=== PATIENT | male | born 1955 | race Caucasian/White ===

== ENCOUNTER 2018-05-16 07:40 | Day surgery (SDC) | payer BC ==
[2018-05-12 16:13] VITALS: BMI 24.7
[~2018-05-16 07:40] MED LIST: LACTATED RINGERS 1,000 ML IV SCH; LIDOCAINE 1% 20 ML VIAL (10MG/ML) FOR IV START INTRADERMA PRN
[2018-05-16 09:10] VITALS: TEMP 97.7
[2018-05-16] MEDS ORDERED: PROPOFOL 10 MG/ML 20 ML VIAL IV ONE (09:18)
[2018-05-16] MEDS ORDERED: LIDOCAINE 1% INJ 10MG/ML (20 ML MDV) ONE (09:18)
--- NOTE | 2018-05-16 09:25 | P.GSHP ---
History of Present Illness H&P Date: 05/16/18 Chief Complaint: GERD, dysphagia This 63-year-old male who presents today for EGD. Patient has had problems with GERD and dysphagia. Past Medical History Past Medical History: Blood Disorder, GERD/Reflux Additional Past Medical History / Comment(s): Dx idiopathic thrombocytopenia, no further problems since spleen removed, hx. Lyme disease,. Ulcerative colitis -surgery & has ileostomy, frequent burning in stomach, occasional dysphagia History of Any Multi-Drug Resistant Organisms: None Reported Past Surgical History: Bowel Resection, Orthopedic Surgery Additional Past Surgical History / Comment(s): BONE MARROW BX 12/12/13. Hx iliostomy age 27 for ulcerative colitis, Hx carpal tunnel release bilat., repair deviated nasal septum, LAPAROSCOPIC SPLENECTOMY Past Anesthesia/Blood Transfusion Reactions: No Reported Reaction Smoking Status: Never smoker - Past Family History Mother Family Medical History: Cancer Father Family Medical History: Cancer Medications and Allergies Home Medications Medication Instructions Recorded Confirmed Type Multivitamin [Men's Multi-Vitamin] 1 tab PO DAILY 12/28/13 05/16/18 History Licorice Root 1 tab PO DAILY 05/12/18 05/16/18 History Allergies Allergy/AdvReac Type Severity Reaction Status Date / Time No Known Allergies Allergy Verified 05/16/18 08:56 Surgical - Exam Vital Signs Temp Pulse Resp BP Pulse Ox 97.7 F 62 16 125/68 97 05/16/18 09:08 05/16/18 09:08 05/16/18 09:08 05/16/18 09:08 05/16/18 09:08 - General well developed, well nourished, no distress - Eyes PERRL - ENT normal pinna - Neck no masses - Respiratory normal expansion - Cardiovascular Rhythm: regular - Abdomen Abdomen: soft, non tender Assessment and Plan Assessment: GERD, dysphagia. We'll perform EGD.
--- NOTE | 2018-05-16 09:33 | P.OP ---
Date of Procedure: 05/16/18 Preoperative Diagnosis: GERD Dysphagia Postoperative Diagnosis: GERD Dysphagia Procedure(s) Performed: EGD Anesthesia: MAC Surgeon: Omega Green Pathology: other (Antrum, esophagus) Condition: stable Disposition: PACU Description of Procedure: The patient's placed on the endoscopy table in the lateral position. He received IV sedation. The gastroscope placed oropharynx and passed in the esophagus and into the stomach. Scope was then placed through the pylorus. The first and second portion of the duodenum appeared normal. Scope was then brought back the antrum and this appeared mildly inflamed. A biopsy was performed. The scope was then retroflexed and the remainder of the stomach appeared normal. There was a moderate size hiatal hernia. GE junction was at 38 sedation. The distal esophagus appeared mildly inflamed and a biopsy performed. The proximal esophagus appeared normal. Scope was withdrawn for patient.
[2018-05-16 09:50] VITALS: BP 129/75; PULSE 63; RESP 18
== END 2018-05-16 10:00 | disposition home or self-care (01) ==
LOC: ORWHC2ENDO 07:40
PROVIDERS: ATTEND Surgery
DX: K29.50 Unspecified chronic gastritis without bleeding (principal); I51.89 Other ill-defined heart diseases; K44.9 Diaphragmatic hernia without obstruction or gangrene; K21.9 Gastro-esophageal reflux disease without esophagitis; D69.3 Immune thrombocytopenic purpura; K51.90 Ulcerative colitis, unspecified, without complications; Z93.2 Ileostomy status; Z90.49 Acquired absence of other specified parts of digestive tract; Z90.81 Acquired absence of spleen
CPT/HCPCS: 88305; 43239; J2001; J2704

== ENCOUNTER → 2019-04-10 | Outpatient (CLI) | payer BC ==
--- NOTE | 2019-04-10 10:42 | CT ---
EXAMINATION TYPE: CT sinus wo con DATE OF EXAM: 04/10/2019 COMPARISON: Prior sinus CT July 13, 2012 HISTORY: Chronic sinusitis per order. Headaches with facial pain for [address] DLP: 587.50 mGycm. Automated Exposure Control for Dose Reduction was Utilized. TECHNIQUE: CT scan of the sinuses is performed without contrast, axial images are obtained, coronal r eformatted images are also reviewed. FINDINGS: Right maxillary sinus shows mild mucosal thickening medially with patchy fluid and air-flui d level on current study. They're slightly larger air-fluid level with mild mucosal thickening along all corona of the left maxillary sinus. Near complete opacification of left sphenoid sinus on current study. Right sphenoid sinus shows mild mucosal thickening along the periphery. There is [id number]-nurhbvyl mucosal thickening involving surgically treated ostiomeatal complexes bilat erally with more opacification in the anterior ethmoid sinuses noted. Frontal sinuses are clear bilat erally on current study. The surgically treated ostiomeatal complex is patent on the right. It is patent but narrowed on the l eft due to antral mucosal thickening coronal image 21. Nasal septum remains slightly deviated to left of midline anteriorly similar to prior. Visualized portion of mastoid air cells show no abnormal opacification. The globes are intact bilate rally. Visualized portion of brain parenchyma shows mild age-related cerebral atrophy. IMPRESSION: Recurrence Acute on chronic paranasal sinus disease despite prior surgery as detailed abo ve.
== END | disposition home or self-care (01) ==
LOC: RADCTMAIN 09:27
PROVIDERS: ATTEND Otolaryngology
DX: J32.9 Chronic sinusitis, unspecified (principal); Z98.890 Other specified postprocedural states
CPT/HCPCS: 70486

== ENCOUNTER → 2020-05-03 | Outpatient (CLI) | payer BC, MEDICARE ==
--- NOTE | 2020-05-03 11:20 | MR ---
EXAMINATION TYPE: MR brain and iac wo/w con DATE OF EXAM: 05/03/2020 COMPARISON: CT sinuses 04/10/2019 HISTORY: Hearing loss TECHNIQUE: Multiplanar, multisequence images of the brain and brainstem is performed without and with IV contras t, utilizing 7.5 mL intravenous Gadavist . FINDINGS: Diffusion weighted images demonstrate no evidence of a recent infarct or other diffusion ab normality. There is no extra-axial fluid collection or significant white matter signal abnormality. There is mild to moderate generalized degenerative change. Areas of abnormal signal involving the bas al ganglia most likely in the basis of prominent Virchow-Sunny spaces. There are numerous bilateral a reas of abnormal signal seen scattered throughout the white matter is a nonspecific pattern but most likely in the basis of remote white matter ischemia. Area of abnormal signal involving the left temporal lobe suggestive of remote ischemia. There are are as of abnormal signal involving the nadia also most typical remote ischemic change. Severe ethmoidal and mild maxillary chronic sinusitis. Mild mucosal thickening involving the frontal sinus. Orbits symmetric. Craniocervical junction maintained. Sella turcica has a normal appearance. There is no evidence of cerebellopontine angle mass or acoustic schwannoma. Just anterior to the left external auditory canal there is a well-circumscribed mixed signal nodule measuring 12 mm. May BE re lated to arthritic change involving the left TMJ joint. IMPRESSION: 1. No evidence of cerebellopontine angle mass or acoustic schwannoma. 2. Severe changes of sinusitis. 3. Degenerative and nonspecific white matter changes most typical of remote white matter ischemia. 4. 12 mm rounded area of mixed signal anterior to the left external auditory canal most likely is int raosseous and related to the mandibular condyle. Could be degenerative related TMJ dysfunction correl ate clinically.
== END | disposition home or self-care (01) ==
LOC: RADMRIMAIN 09:57
PROVIDERS: ATTEND Otolaryngology
DX: G31.9 Degenerative disease of nervous system, unspecified (principal); R90.89 Other abnormal findings on diagnostic imaging of central nervous system; R93.89 Abnormal findings on diagnostic imaging of other specified body structures; H92.03 Otalgia, bilateral; H93.13 Tinnitus, bilateral
CPT/HCPCS: 70553; A9585

== ENCOUNTER → 2020-07-26 | Outpatient (CLI) | payer BC, MEDICARE ==
[2020-07-26 17:05] LABS: Basophils # (A) 0.12 X 10*3/uL (0.00-0.10); Basophils % (A) 1.5 %; Eosinophils # (A) 0.61 X 10*3/uL (0.04-0.35); Eosinophils % (A) 7.7 %; HCT 46.8 % (39.6-50.0); HGB 14.9 g/dL (13.0-17.0); Lymphocytes # (A) 2.16 X 10*3/uL (0.90-5.00); Lymphocytes % (A) 27.4 %; MCH 30.5 pg (27.0-32.0); MCHC 31.8 g/dL (32.0-37.0); MCV 95.7 fL (80.0-97.0); Mean Platelet Volume 10.8 fL (9.5-12.2); Monocytes # (A) 0.85 X 10*3/uL (0.20-1.00); Monocytes % (A) 10.8 %; Neutrophils # (A) 4.08 X 10*3/uL (1.80-7.70); Neutrophils % (A) 51.8 %; Platelet Count 408 X 10*3/uL (140-440); RBC 4.89 X 10*6/uL (4.40-5.60); WBC 7.88 X 10*3/uL (4.50-10.00)
[2020-07-26 20:42] LABS: Hemoglobin A1C 5.8 % (4.0-6.0)
[2020-07-26 21:43] LABS: C Reactive Protein <0.4 mg/dL (0.0-0.8); Chol/HDL Ratio 4.74; Cholesterol 237 mg/dL (0-200); LDL Cholesterol,Calculated 169.6 mg/dL (0.0-131.0)
[2020-07-26 22:24] LABS: Erythrocyte Sedimentation Rate 8 mm/Hr (0-20)
[2020-07-27 02:59] LABS: Anti-DNA, DS unit <1.0 IU/mL; Cardiolipin Ab IgG Interp NEGATIVE (NEGATIVE); Cardiolipin Ab IgM Interp NEGATIVE (NEGATIVE); Cardiolipin IgA Antibody <2.0 U/mL; Cardiolipin IgM Antibody <1.5 U/mL; DNA Double-Stranded NEGATIVE (NEGATIVE)
[2020-07-29 13:45] LABS: APTT 45 Sec(s) (<43); APTT 1:1 Mix 41 Sec(s) (<43); Dilute Russell Viper Venom 40 Sec(s) (<44)
== END | disposition home or self-care (01) ==
LOC: LABWHC1 08:34
PROVIDERS: ATTEND Psychiatry & Neurology Neurology
DX: I67.9 Cerebrovascular disease, unspecified (principal); R93.89 Abnormal findings on diagnostic imaging of other specified body structures
CPT/HCPCS: 36415; 80061; 83036; 83090; 85025; 85613; 85652; 85730; 85732; 86038; 86140; 86147; 86225; 86618; 86780

== ENCOUNTER 2021-04-27 14:06 | Observation (INO) | payer BC, MEDICARE ==
--- NOTE | 2021-04-27 15:07 | ED ---
General Adult HPI - General Chief complaint: Shortness of Breath Stated complaint: SOB,chest pain Time Seen by Provider: 04/27/21 14:10 Source: patient, family, RN notes reviewed, old records reviewed Mode of arrival: wheelchair Limitations: no limitations - History of Present Illness Initial comments: This is a 66-year-old male who presents emergency Department complaining of overall fatigue and in particular upper legs and forearm weakness even though he is able to do things have normal strength in the chest feels extremely weak. Patient states he had COVID March 26. Patient states she's also been short of breath for the last 2 weeks. Patient states his fatigue and sensation of weakness in his extremities his been ongoing for the last couple of weeks per patient denies chest pain or difficulty breathing. Patient denies any chest pain or palpitations. Patient denies abdominal pain patient denies nausea vomiting diarrhea. Patient denies any swelling of the legs or calf tenderness - Related Data Home Medications Medication Instructions Recorded Confirmed Albuterol Sulfate [Proair Hfa] 2 puff INHALATION RT-Q4H PRN 04/27/21 04/27/21 Ascorbic Acid [Vitamin C] 1,000 mg PO DAILY 04/27/21 04/27/21 Cholecalciferol [Vitamin D3 (125 125 mcg PO DAILY 04/27/21 04/27/21 Mcg = 5000 Iu)] Cyanocobalamin (Vitamin B-12) 1,000 mcg PO DAILY 04/27/21 04/27/21 [Vitamin B-12] Vitamin A [Vitamin A (8,000 Units 2,400 mcg PO DAILY 04/27/21 04/27/21 = 2,400 MCG)] Zinc 50 mg PO DAILY 04/27/21 04/27/21 Allergies Allergy/AdvReac Type Severity Reaction Status Date / Time No Known Allergies Allergy Verified 04/27/21 17:14 Review of Systems ROS Statement: Those systems with pertinent positive or pertinent negative responses have been documented in the HPI. ROS Other: All systems not noted in ROS Statement are negative. Past Medical History Past Medical History: Blood Disorder, GERD/Reflux Additional Past Medical History / Comment(s): Dx idiopathic thrombocytopenia, no further problems since spleen removed, hx. Lyme disease,. Ulcerative colitis- surgery & has ileostomy, frequent burning in stomach, occasional dysphagia History of Any Multi-Drug Resistant Organisms: None Reported Past Surgical History: Bowel Resection, Orthopedic Surgery Additional Past Surgical History / Comment(s): BONE MARROW BX 12/12/13. Hx iliostomy age 27 for ulcerative colitis, Hx carpal tunnel release bilat., repair deviated nasal septum, LAPAROSCOPIC SPLENECTOMY Past Anesthesia/Blood Transfusion Reactions: No Reported Reaction Past Psychological History: No Psychological Hx Reported Smoking Status: Never smoker Past Alcohol Use History: Occasional Past Drug Use History: None Reported - Past Family History Mother Family Medical History: Cancer Father Family Medical History: Cancer General Exam - General Exam Comments Initial Comments: GENERAL: Patient is well-developed and well-nourished. Patient is nontoxic and well- hydrated and is in mild distress. ENT: Neck is soft and supple. No significant lymphadenopathy is noted. Oropharynx is clear. Moist mucous membranes. Neck has full range of motion without eliciting any pain. EYES: The sclera were anicteric and conjunctiva were pink and moist. Extraocular movements were intact and pupils were equal round and reactive to light. Eyelids were unremarkable. PULMONARY: Patient is crackles left base CARDIOVASCULAR: There is a regular rate and rhythm without any murmurs gallops or rubs. ABDOMEN: Soft and nontender with normal bowel sounds. SKIN: Skin is clear with no lesions or rashes and otherwise unremarkable. NEUROLOGIC: Patient is alert and oriented x3. Cranial nerves II through XII are grossly intact. Motor and sensory are also intact. Normal speech, volume and content. Symmetrical smile. MUSCULOSKELETAL: Normal extremities with adequate strength and full range of motion. LYMPHATICS: No significant lymphadenopathy is noted PSYCHIATRIC: Normal psychiatric evaluation. Limitations: no limitations Course Vital Signs 04/27/21 04/27/21 14:09 19:29 Temperature 97.6 F 98.2 F Pulse Rate 82 65 Respiratory 20 18 Rate Blood Pressure 128/76 117/64 O2 Sat by Pulse 95 92 L Oximetry Medical Decision Making - Medical Decision Making EKG shows normal sinus rhythm at 80 bpm ME interval is on a 28 QRS is 96 QT interval 390 QTC is 449. Patient's EKG shows no ST segment elevation or depression. Chest x-ray shows infiltrate in the left face. Patient's CT of the chest showed no PE there was some mediastinal lymph nodes. Patient was up and ambulatory and dropped his pulse ox from the high 90s down to 91%. I spoke Dr. Borrero admitted the patient I consult pulmonary. - Lab Data Result diagrams: 04/27/21 15:01 04/27/21 15:01 Lab Results 04/27/21 04/27/21 04/27/21 Range/Units 15:01 15:01 15:01 WBC 8.7 (3.8-10.6) k/uL RBC 4.49 (4.30-5.90) m/uL Hgb 14.2 (13.0-17.5) gm/dL Hct 43.3 (39.0-53.0) % MCV 96.4 (80.0-100.0) fL MCH 31.7 (25.0-35.0) pg MCHC 32.8 (31.0-37.0) g/dL RDW 13.9 (11.5-15.5) % Plt Count 366 (150-450) k/uL MPV 7.9 Neutrophils % 46 % Lymphocytes % 19 % Monocytes % 1 % Eosinophils % 31 % Basophils % 0 % Neutrophils # 4.0 (1.3-7.7) k/uL Lymphocytes # 1.7 (1.0-4.8) k/uL Monocytes # 0.1 (0-1.0) k/uL Eosinophils # 2.7 H (0-0.7) k/uL Basophils # 0.0 (0-0.2) k/uL Manual Slide Review Performed RBC Morphology Normal PT 11.0 (9.0-12.0) sec INR 1.0 (<1.2) APTT 24.9 (22.0-30.0) sec D-Dimer 1.44 H (<0.60) mg/L FEU Sodium 136 L (137-145) mmol/L Potassium 4.0 (3.5-5.1) mmol/L Chloride 107 (98-107) mmol/L Carbon Dioxide 22 (22-30) mmol/L Anion Gap 7 mmol/L BUN 16 (9-20) mg/dL Creatinine 1.01 (0.66-1.25) mg/dL Est GFR (CKD-EPI)AfAm 89 (>60 ml/min/1.73 sqM) Est GFR (CKD-EPI)NonAf 77 (>60 ml/min/1.73 sqM) Glucose 147 H (74-99) mg/dL Plasma Lactic Acid Tian (0.7-2.0) mmol/L Calcium 8.5 (8.4-10.2) mg/dL Magnesium 1.7 (1.6-2.3) mg/dL Total Bilirubin 0.3 (0.2-1.3) mg/dL AST 38 (17-59) U/L ALT 25 (4-49) U/L Alkaline Phosphatase 102 (38-126) U/L Creatine Kinase (55-170) U/L Troponin I (0.000-0.034) ng/mL NT-Pro-B Natriuret Pep pg/mL Total Protein 6.4 (6.3-8.2) g/dL Albumin 2.7 L (3.5-5.0) g/dL Coronavirus (PCR) (Not Detectd) 04/27/21 04/27/21 04/27/21 Range/Units 15:01 15:01 15:01 WBC (3.8-10.6) k/uL RBC (4.30-5.90) m/uL Hgb (13.0-17.5) gm/dL Hct (39.0-53.0) % MCV (80.0-100.0) fL MCH (25.0-35.0) pg MCHC (31.0-37.0) g/dL RDW (11.5-15.5) % Plt Count (150-450) k/uL MPV Neutrophils % % Lymphocytes % % Monocytes % % Eosinophils % % Basophils % % Neutrophils # (1.3-7.7) k/uL Lymphocytes # (1.0-4.8) k/uL Monocytes # (0-1.0) k/uL Eosinophils # (0-0.7) k/uL Basophils # (0-0.2) k/uL Manual Slide Review RBC Morphology PT (9.0-12.0) sec INR (<1.2) APTT (22.0-30.0) sec D-Dimer (<0.60) mg/L FEU Sodium (137-145) mmol/L Potassium (3.5-5.1) mmol/L Chloride (98-107) mmol/L Carbon Dioxide (22-30) mmol/L Anion Gap mmol/L BUN (9-20) mg/dL Creatinine (0.66-1.25) mg/dL Est GFR (CKD-EPI)AfAm (>60 ml/min/1.73 sqM) Est GFR (CKD-EPI)NonAf (>60 ml/min/1.73 sqM) Glucose (74-99) mg/dL Plasma Lactic Acid Tian 1.6 (0.7-2.0) mmol/L Calcium (8.4-10.2) mg/dL Magnesium (1.6-2.3) mg/dL Total Bilirubin (0.2-1.3) mg/dL AST (17-59) U/L ALT (4-49) U/L Alkaline Phosphatase (38-126) U/L Creatine Kinase (55-170) U/L Troponin I <0.012 (0.000-0.034) ng/mL NT-Pro-B Natriuret Pep 66 pg/mL Total Protein (6.3-8.2) g/dL Albumin (3.5-5.0) g/dL Coronavirus (PCR) (Not Detectd) 04/27/21 04/27/21 Range/Units 15:01 15:01 WBC (3.8-10.6) k/uL RBC (4.30-5.90) m/uL Hgb (13.0-17.5) gm/dL Hct (39.0-53.0) % MCV (80.0-100.0) fL MCH (25.0-35.0) pg MCHC (31.0-37.0) g/dL RDW (11.5-15.5) % Plt Count (150-450) k/uL MPV Neutrophils % % Lymphocytes % % Monocytes % % Eosinophils % % Basophils % % Neutrophils # (1.3-7.7) k/uL Lymphocytes # (1.0-4.8) k/uL Monocytes # (0-1.0) k/uL Eosinophils # (0-0.7) k/uL Basophils # (0-0.2) k/uL Manual Slide Review RBC Morphology PT (9.0-12.0) sec INR (<1.2) APTT (22.0-30.0) sec D-Dimer (<0.60) mg/L FEU Sodium (137-145) mmol/L Potassium (3.5-5.1) mmol/L Chloride (98-107) mmol/L Carbon Dioxide (22-30) mmol/L Anion Gap mmol/L BUN (9-20) mg/dL Creatinine (0.66-1.25) mg/dL Est GFR (CKD-EPI)AfAm (>60 ml/min/1.73 sqM) Est GFR (CKD-EPI)NonAf (>60 ml/min/1.73 sqM) Glucose (74-99) mg/dL Plasma Lactic Acid Tian (0.7-2.0) mmol/L Calcium (8.4-10.2) mg/dL Magnesium (1.6-2.3) mg/dL Total Bilirubin (0.2-1.3) mg/dL AST (17-59) U/L ALT (4-49) U/L Alkaline Phosphatase (38-126) U/L Creatine Kinase 160 (55-170) U/L Troponin I (0.000-0.034) ng/mL NT-Pro-B Natriuret Pep pg/mL Total Protein (6.3-8.2) g/dL Albumin (3.5-5.0) g/dL Coronavirus (PCR) Not Detected (Not Detectd) Disposition Clinical Impression: Dyspnea, Raynaud phenomenon, Fatigue, Post covid-19 condition, unspecified Disposition: ADMITTED IP TO THIS HOSP Referrals: Markie Verde DO [Primary Care Provider] - 1-2 days Time of Disposition: 19:35
[2021-04-27 15:16] LABS: Basophils % (A) 0 %; Eosinophils # (A) 2.7 k/uL (0-0.7); Eosinophils % (A) 31 %; HCT 43.3 % (39.0-53.0); HGB 14.2 gm/dL (13.0-17.5); Lymphocytes # (A) 1.7 k/uL (1.0-4.8); Lymphocytes % (A) 19 %; MCH 31.7 pg (25.0-35.0); MCHC 32.8 g/dL (31.0-37.0); MCV 96.4 fL (80.0-100.0); Mean Platelet Volume 7.9; Monocytes # (A) 0.1 k/uL (0-1.0); Monocytes % (A) 1 %; Neutrophils % (A) 46 %; Platelet Count 366 k/uL (150-450); RBC 4.49 m/uL (4.30-5.90); RDW 13.9 % (11.5-15.5); WBC 8.7 k/uL (3.8-10.6)
--- NOTE | 2021-04-27 15:24 | XR ---
EXAMINATION TYPE: XR chest 2V DATE OF EXAM: 04/27/2021 COMPARISON: NONE HISTORY: Short of breath and chest pain. TECHNIQUE: Frontal and lateral views of the chest are obtained. FINDINGS: Cardiomediastinal silhouette and pulmonary vasculature are within normal limits. Mild patchy and reticular opacity over the left base. IMPRESSION: Mild patchy opacity over the left base could represent pneumonia in the appropriate clin ical setting.
[2021-04-27 15:34] LABS: Partial Thromboplastin Time 24.9 sec (22.0-30.0)
[2021-04-27 15:36] LABS: Albumin 2.7 g/dL (3.5-5.0); Calcium 8.5 mg/dL (8.4-10.2); Magnesium 1.7 mg/dL (1.6-2.3); Total Bilirubin 0.3 mg/dL (0.2-1.3); Total Protein 6.4 g/dL (6.3-8.2)
[2021-04-27 16:16] LABS: RBC Morphology Normal
--- NOTE | 2021-04-27 17:26 | CT ---
EXAMINATION TYPE: CT chest angio for PE DATE OF EXAM: 04/27/2021 COMPARISON: Radiograph 04/27/2021 HISTORY: SOB, Hx Covid CT DLP: 385.3 mGycm Automated exposure control for dose reduction was used. CONTRAST: CT Chest for pulmonary embolism performed with with IV Contrast, patient injected with 100 mL of Isov ue 370. FINDINGS: LUNGS: There is peripheral reticular opacity in the lungs that demonstrates a craniocaudal gradient. There is diffuse bronchial wall thickening. There is a 6 mm pleural-based nodular opacity along the m inor fissure anteriorly. There is no effusion or pneumothorax MEDIASTINUM: There is satisfactory enhancement of the pulmonary artery and its branches, there is no CT evidence for pulmonary embolism. Enlarged mediastinal lymph nodes measuring up to 1.6 cm "and appr oximately 1.8 cm in. There are prominent but nonenlarged biaxillary lymph nodes. No pericardial effus ion is seen. The heart is not enlarged Caliber of the thoracic aorta and pulmonary arteries within no rmal limits. Wall thickening of the distal esophagus. Partial visualization prominent periaortic lymp h nodes. OTHER: No additional significant abnormality is seen. IMPRESSION: 1. No pulmonary embolism. 2. Peripherally predominant reticular glass opacities in the craniocaudal gradient as well as is di ffuse bronchial wall thickening. Numerous enlarged mediastinal and hilar lymph nodes and prominent bu t nonenlarged axillary lymph nodes as well as prominent upper abdominal lymph nodes. Findings are fav ored relate to an inflammatory/infectious process. 3. Wall thickening of the distal esophagus. Correlate with direct visualization.
[2021-04-27] MEDS ORDERED: SODIUM CHLORIDE 0.9% 1,000 ML IV ONE (19:36)
[2021-04-27] MEDS ORDERED: ALBUTEROL NEBULIZED 2.5 MG/3 ML INHALATION PRN (21:54)
[2021-04-27] MEDS ORDERED: ALPRAZolam 0.25 MG TAB PO PRN (21:55)
[2021-04-27] MEDS ORDERED: ONDANSETRON 4 MG/2 ML VIAL IVP PRN (21:55)
[2021-04-27] MEDS ORDERED: LACTULOSE 20 GM/30 ML CUP PO PRN (21:55)
[2021-04-27] MEDS ORDERED: CALCIUM CARBONATE 500 MG CHEWABLE PO PRN (21:55)
[2021-04-27] MEDS ORDERED: NALOXONE 0.4 MG/ML 1 ML VIAL IV PRN (21:55)
[2021-04-27] MEDS ORDERED: MELATONIN 3 MG TABLET PO PRN (21:55)
[2021-04-27] MEDS ORDERED: ACETAMINOPHEN TAB 325 MG TAB PO PRN (21:55)
[2021-04-27] MEDS: ENOXAPARIN 40 MG/0.4 ML SYRINGE SQ SCH (23:26)
[2021-04-28] MEDS: BUDESONIDE 0.5 MG/2 ML NEBU INHALATION SCH ×2 (02:17→08:24)
[2021-04-28] MEDS: CHOLECALCIFEROL 125 MCG (5000 IU) TABLET PO SCH (08:44)
[2021-04-28] MEDS: ASCORBIC ACID 500 MG TAB PO SCH (08:44)
[2021-04-28] MEDS: ENOXAPARIN 40 MG/0.4 ML SYRINGE SQ SCH (08:44)
[2021-04-28] MEDS: ZINC SULFATE 220 MG CAP PO SCH (08:44)
[2021-04-28] MEDS: VITAMIN A 10,000 UNIT (3000 MCG) CAPSULE PO SCH (08:44)
[2021-04-28] MEDS: CYANOCOBALAMIN 500 MCG TAB PO SCH (08:44)
--- NOTE | 2021-04-28 12:01 | NM ---
EXAMINATION TYPE: NM pul vent and perfuse DATE OF EXAM: 04/28/2021 COMPARISON: Radiograph 04/27/2021 HISTORY: 66-year-old male assess for peripheral PE TECHNIQUE: Utilizing inhalation of 39.2 mCi Tc 99m DTPA aerosol and intravenous injection of 4.8 mCi of Tc 99m MAA, ventilation and perfusion images are acquired post injection in multiple projections. FINDINGS: Possible small matched defect along the lateral right lower lung. Small mismatched defect suggested p osterior right base on the LPO image. No additional mismatched perfusion defects are identified. IMPRESSION: Low probability for pulmonary embolus based on modified PIOPED 2 criteria.
--- NOTE | 2021-04-28 16:39 | P.HPIM ---
History of Present Illness H&P Date: 04/28/21 Chief Complaint: Short of breath with exertion This is a very pleasant 66-year-old patient who follows with Dr. Markie Oscar. 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 Patient empties his ileostomy every 4-5 hours daily. This was done at age 27. Patient had COVID initially about a year ago in January. Was not hospitalized. In February 2021 patient was treated for pneumonia. In March of this year patient again had COVID was not hospitalized. Patient managed himself at home. His pulse ox never dropped below 90. Patient is at her baseline very active. 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 He is noted that with exertion he gets short of breath climbing flight of stairs. He was at the martial art competition in [place] a noticed that with any activity is legs arms became very weak. Short of breath. No chest pain. No fever no chills. Patient also having episodes and a repair fingers become white and blue when exposed to cold. No chest pain. No dizziness, lightheadedness. Patient does feel tired. Patient also has an active job at the [employer]. He does have significant stress. Review of systems: GEN.: Tires EYES: None HEENT: None NECK: None RESPIRATORY: As above CARDIOVASCULAR: As above GASTROINTESTINAL: None GENITOURINARY: None MUSCULOSKELETAL: Some joint pains LYMPHATICS: None HEMATOLOGICAL: None PSYCHIATRY: Anxious NEUROLOGICAL: None. Past medical history to include: GERD, hard of hearing, hyperlipidemia, ITP, Lyme disease, ulcerative colitis with total colectomy resultant ileostomy at age of 27, splenectomy. Social history: . 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 In [place]. Alcohol occasionally. Family history: Cancer Physical examination: VITAL SIGNS: 97.7, 90, 18, 115/73, 92% room air GENERAL: BMI 25.1, sitting in bed, awake, comfortable. EYES: Pupils equal. Conjunctiva normal. HEENT: External appearance of nose and ears normal, oral cavity grossly normal. NECK: JVD not raised; masses not palpable. HEART: First and second heart sounds are normal; no edema. LUNGS: Respiratory rate normal; clear to auscultation. ABDOMEN: Soft, nontender, liver spleen not palpable, no masses palpable. PSYCH: Alert and oriented x3; mood and affect normal. MUSCULOSKELETAL:No Clubbing/cyanosis;muscles-grossly intact. Some evidence of OA NEUROLOGICAL: Cranial nerves grossly intact; no facial asymmetry, power and sensation grossly intact. LYMPHATICS: No lymph nodes palpable in the axilla and neck INVESTIGATIONS, reviewed in the clinical context: White count 8.7 hemoglobin 14.2 platelets 366 eosinophils 2.7 sodium 136 potassium 4 creatinine 1.01 Albumin 2.7 pro-calcitonin 0.16 Coronavirus [PCR]: Not detected EKG tracing personally reviewed by me-normal sinus rhythm. Chest x-ray film personally reviewed by me-possible interstitial prominence/fibrosis CT chest angio for PE: Peripheral reticular opacities in a craniocaudal gradient. Diffuse bronchial wall thickening. Prominent lymph nodes. Distal esophagus wall thickening.. Negative for PE VQ scan: Low probability for PE. Assessment and plan: -This is a patient's had COVID 19 pneumonia over a year ago and a second episode in March of this year. Patient was never admitted. Since then patient currently is to have significant short of breath with exertion. Patient's significant findings on the CT chest. Could be residual fibrosis/inflammation from COVID 19. PE was ruled out. Inhaled steroids. Add bronchodilators. Patient will need full PFTs. In the presence eosinophilia consider pneumoniitis from such. Pulmonary's been consulted. -Shortness of breath from exertion. This could be related to his pulmonary findings. Given history of COVID-19 which can affect myocardium patient may need a nuclear stress test. Consult underlying cardiac ischemia. 2-D echocardiogram has been ordered.: Cardiology consultation. 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 Given the nature of COVID-19 this may have elicited low-grade arteritis/inflammation. We'll have the patient follow up with nutritionist public health an outpatient. Told the patient to use mittens to keep his hand warm. -Anxiety work-related. Patient advised about mindfulness. Nebulized steroids. Bronchodilators. 2-D echo. Consultation to pulmonary and cardiology. Patient will need full PFTs as outpatient, possible bronchoscopy. Care was discussed. Questions answered. Past Medical History Past Medical History: Blood Disorder, GERD/Reflux, Hearing Disorder / Deafness, Hyperlipidemia Additional Past Medical History / Comment(s): Dx idiopathic thrombocytopenia, no further problems since spleen removed, hx. Lyme disease,. Ulcerative colitis- surgery & has ileostomy, frequent burning in stomach, occasional dysphagia History of Any Multi-Drug Resistant Organisms: None Reported Past Surgical History: Bowel Resection, Orthopedic Surgery Additional Past Surgical History / Comment(s): BONE MARROW BX 12/12/13. Hx iliostomy age 27 for ulcerative colitis, Hx carpal tunnel release bilat., repair deviated nasal septum, LAPAROSCOPIC SPLENECTOMY; Nose surgery repair for broken nose Past Anesthesia/Blood Transfusion Reactions: No Reported Reaction Past Psychological History: No Psychological Hx Reported Smoking Status: Never smoker Past Alcohol Use History: Occasional Past Drug Use History: None Reported - Past Family History Mother Family Medical History: Cancer Father Family Medical History: Cancer Medications and Allergies Home Medications Medication Instructions Recorded Confirmed Type Albuterol Sulfate [Proair Hfa] 2 puff INHALATION RT-Q4H PRN 04/27/21 04/27/21 History Ascorbic Acid [Vitamin C] 1,000 mg PO DAILY 04/27/21 04/27/21 History Cholecalciferol [Vitamin D3 (125 125 mcg PO DAILY 04/27/21 04/27/21 History Mcg = 5000 Iu)] Cyanocobalamin (Vitamin B-12) 1,000 mcg PO DAILY 04/27/21 04/27/21 History [Vitamin B-12] Vitamin A [Vitamin A (8,000 Units 2,400 mcg PO DAILY 04/27/21 04/27/21 History = 2,400 MCG)] Zinc 50 mg PO DAILY 04/27/21 04/27/21 History Allergies Allergy/AdvReac Type Severity Reaction Status Date / Time No Known Allergies Allergy Verified 04/27/21 17:14 Physical Exam Vitals: Vital Signs Temp Pulse Pulse Resp BP BP Pulse Ox 04/28/21 08:40 97.7 F 90 18 115/73 92 L 04/28/21 08:39 92 04/28/21 08:24 88 04/28/21 02:00 98.9 F 70 15 123/70 97 04/28/21 00:02 78 18 04/27/21 21:55 96 04/27/21 21:46 97.8 F 78 18 106/57 96 04/27/21 20:58 79 20 117/67 98 04/27/21 19:29 98.2 F 65 18 117/64 92 L 04/27/21 14:09 97.6 F 82 20 128/76 95 Intake and Output 04/27/21 04/28/21 04/28/21 22:59 06:59 14:59 Other: Voiding Method Toilet # Voids 2 Weight 79.379 kg Results CBC & Chem 7: 04/27/21 15:01 04/27/21 15:01 Labs: Abnormal Lab Results - Last 24 Hours (Table) 04/27/21 04/27/21 04/27/21 Range/Units 15:01 15:01 15:01 Eosinophils # 2.7 H (0-0.7) k/uL D-Dimer 1.44 H (<0.60) mg/L FEU Sodium 136 L (137-145) mmol/L Glucose 147 H (74-99) mg/dL Albumin 2.7 L (3.5-5.0) g/dL Procalcitonin (0.02-0.09) ng/mL 04/27/21 Range/Units 15:01 Eosinophils # (0-0.7) k/uL D-Dimer (<0.60) mg/L FEU Sodium (137-145) mmol/L Glucose (74-99) mg/dL Albumin (3.5-5.0) g/dL Procalcitonin 0.16 H (0.02-0.09) ng/mL Thrombosis Risk Factor Assmnt - Choose All That Apply Any of the Below Risk Factors Present?: No Each Risk Factor Represents 2 Points: Age 61-74 years Thrombosis Risk Factor Assessment Total Risk Factor Score: 2 Thrombosis Risk Factor Assessment Level: Low Risk
[2021-04-28] MEDS: PANTOPRAZOLE 40 MG TABLET PO SCH (17:01)
[2021-04-28] MEDS: ALBUTEROL NEBULIZED 2.5 MG/3 ML INHALATION SCH ×2 (17:45→20:03)
--- NOTE | 2021-04-28 17:52 | P.CNPUL ---
History of Present Illness Consult date: 04/28/21 Requesting physician: Jesu Borrero Reason for consult: dyspnea Chief complaint: Shortness of breath History of present illness: This is a 66-year-old white male with known history of splenectomy, ITP, history of GERD, history of Lyme's disease, ulcerative colitis, and history of colectomy/ileostomy. Patient had COVID-19 infection twice in the last year, he had COVID-19 infection about a year ago in January, and he did not require hospitalization. Patient came down again in March of this year with COVID-19 infection again, did not require hospitalization. Patient managed his symptoms mostly at home. And he always had adequate oxygenation in the 90s during his illness. 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 But improving after running hot water over the fingers. Patient was also feeling very tired, he was a bit concerned, hence he came into the ER. Workup included a CT angiogram of the chest which came back negative except for peripheral reticular glass opacities and some bronchial wall thickening. Mild peripheral fibrotic changes noted on the CT of the chest. There was also evidence of slightly enlarged lymph nodes in the mediastinum, there was also wall thickening of the distal esophagus. Patient had relatively normal CBC. However he had a 31% eosinophilia noted on the differential. His pro-calcitonin was 0.16, otherwise his labs were basically unremarkable. On physical examination, the patient sounded very clear, no evidence of any crackles or rhonchi or wheezes. I am recommending however an ABG on this patient, results of which are pending. Review of Systems GEN.: Fatigue and tiredness weakness EYES: None HEENT: None NECK: None RESPIRATORY: As noted in HPI. CARDIOVASCULAR: Negative. GASTROINTESTINAL: None GENITOURINARY: None MUSCULOSKELETAL: Negative. Except for renal phenomenon involving both hands / fingers LYMPHATICS: None HEMATOLOGICAL: Negative PSYCHIATRY: Negative NEUROLOGICAL: None. Past Medical History Past Medical History: Blood Disorder, GERD/Reflux, Hearing Disorder / Deafness, Hyperlipidemia Additional Past Medical History / Comment(s): Dx idiopathic thrombocytopenia, no further problems since spleen removed, hx. Lyme disease,. Ulcerative colitis- surgery & has ileostomy, frequent burning in stomach, occasional dysphagia History of Any Multi-Drug Resistant Organisms: None Reported Past Surgical History: Bowel Resection, Orthopedic Surgery Additional Past Surgical History / Comment(s): BONE MARROW BX 12/12/13. Hx iliostomy age 27 for ulcerative colitis, Hx carpal tunnel release bilat., repair deviated nasal septum, LAPAROSCOPIC SPLENECTOMY; Nose surgery repair for broken nose Past Anesthesia/Blood Transfusion Reactions: No Reported Reaction Past Psychological History: No Psychological Hx Reported Smoking Status: Never smoker Past Alcohol Use History: Occasional Past Drug Use History: None Reported - Past Family History Mother Family Medical History: Cancer Father Family Medical History: Cancer Medications and Allergies Home Medications Medication Instructions Recorded Confirmed Type Albuterol Sulfate [Proair Hfa] 2 puff INHALATION RT-Q4H PRN 04/27/21 04/27/21 History Ascorbic Acid [Vitamin C] 1,000 mg PO DAILY 04/27/21 04/27/21 History Cholecalciferol [Vitamin D3 (125 125 mcg PO DAILY 04/27/21 04/27/21 History Mcg = 5000 Iu)] Cyanocobalamin (Vitamin B-12) 1,000 mcg PO DAILY 04/27/21 04/27/21 History [Vitamin B-12] Vitamin A [Vitamin A (8,000 Units 2,400 mcg PO DAILY 04/27/21 04/27/21 History = 2,400 MCG)] Zinc 50 mg PO DAILY 04/27/21 04/27/21 History Allergies Allergy/AdvReac Type Severity Reaction Status Date / Time No Known Allergies Allergy Verified 04/27/21 17:14 Physical Exam Vitals: Vital Signs Temp Pulse Pulse Resp BP BP Pulse Ox 04/28/21 14:00 97.9 F 86 18 106/63 94 L 04/28/21 08:40 97.7 F 90 18 115/73 92 L 04/28/21 08:39 92 04/28/21 08:24 88 04/28/21 02:00 98.9 F 70 15 123/70 97 04/28/21 00:02 78 18 04/27/21 21:55 96 04/27/21 21:46 97.8 F 78 18 106/57 96 04/27/21 20:58 79 20 117/67 98 04/27/21 19:29 98.2 F 65 18 117/64 92 L Intake and Output 04/28/21 04/28/21 04/28/21 06:59 14:59 22:59 Other: Voiding Method Toilet # Voids 2 Physical Exam revealed a 66-year-old white male in no distress. Head: Atraumatic, normocephalic. HEENT:[Neck is supple.] [No neck masses.] [No thyromegaly.] [No JVD.] Chest: [Clear throughout, no crackles, no rhonchi, no wheezes.] Cardiac Exam: [Normal S1 and S2, no S3 gallop, no murmur.] Abdomen: [Soft, nontender, no megaly, no rebound, no guarding, normal bowel sounds.] Extremities: [No clubbing, no edema, no cyanosis.] Neurological Exam: [No focal neurologic deficit.] Alert and oriented 3. Psychiatric: Normal mood, affect and normal mental status examination. Skin: No rashes. Results - Laboratory Findings CBC and BMP: 04/27/21 15:01 04/27/21 15:01 PT/INR, D-dimer PT 11.0 sec (9.0-12.0) 04/27/21 15:01 INR 1.0 (<1.2) 04/27/21 15:01 D-Dimer 1.44 mg/L FEU (<0.60) H 04/27/21 15:01 Abnormal lab findings: Abnormal Labs 04/27/21 04/27/21 04/27/21 15:01 15:01 15:01 Eosinophils # 2.7 H D-Dimer 1.44 H Sodium 136 L Glucose 147 H Albumin 2.7 L Procalcitonin 04/27/21 15:01 Eosinophils # D-Dimer Sodium Glucose Albumin Procalcitonin 0.16 H - Diagnostic Findings CT scan - chest: image reviewed (As noted in HPI.) Assessment and Plan Assessment: Impression: Dyspnea on exertion, most likely secondary to post inflammatory changes from COVID-19 pneumonia as noted on the CT of the chest, doubt interstitial lung disease. Mediastinal adenopathy/nonspecific, most likely postinflammatory in nature, I am strongly recommending a repeat CT of the chest in the next 3-4 months. And follow-up on his mediastinal lymph nodes. Elevated eosinophils, doubt eosinophilic asthma, as the patient has no clear-cut history of asthma to explain his elevated eosinophils. Wondering if the patient took some [id number] medications to cause a drug-induced eosinophilia. Nonetheless this needs to be followed up closely on outpatient basis. The differential diagnoses for elevated eosinophils could be ALLERGIES, especially drug ALLERGIES, parasitic infection, underlying malignancy, AUTO immune disease, or endocrine disorders. Would definitely recommend hematologic evaluation/oncologic evaluation of this patient. In the meantime we'll recommend serum AMMY, and sed rate as well as C-reactive protein. Recommendation: Continue present supportive care measures. Consider hematology consultation for his eosinophilia. Patient will need to follow-up with rheumatology regarding his raynauds symptoms. Repeat CT of the chest in the next 3 months. To evaluate his mediastinal adenopathy. Repeat CBC and check total eosinophilic count on this patient. In a.m. ABG to be done on room air We will continue to follow. Time with Patient: Greater than 30
[2021-04-28] MEDS: BUDESONIDE 1 MG/2 ML NEBU INHALATION SCH (20:03)
[2021-04-28 20:48] LABS: ABG Base Excess 0.2 mmol/L; ABG HCO3 25 mmol/L (21-25); ABG Oxygen Saturation 95.8 % (94-97); ABG PCO2 38 mmHg (35-45); ABG PH 7.43 (7.35-7.45); ABG PO2 73 mmHg (83-108); ABG TCO2 26 mmol/L (19-24); Allen Test Performed? Yes
[2021-04-29 01:57] VITALS: RESP 16
[2021-04-29] MEDS: PANTOPRAZOLE 40 MG TABLET PO SCH ×2 (07:45→17:01)
[2021-04-29] MEDS: BUDESONIDE 1 MG/2 ML NEBU INHALATION SCH ×2 (08:45→18:59)
[2021-04-29] MEDS: ALBUTEROL NEBULIZED 2.5 MG/3 ML INHALATION SCH ×4 (08:45→18:59)
[2021-04-29] MEDS: ZINC SULFATE 220 MG CAP PO SCH (09:05)
[2021-04-29 09:44] LABS: HCT 38.3 % (39.6-50.0); HGB 12.5 g/dL (13.0-17.0); MCH 30.5 pg (27.0-32.0); MCHC 32.6 g/dL (32.0-37.0); MCV 93.4 fL (80.0-97.0); Mean Platelet Volume 10.1 fL (9.5-12.2); NRBC Per 100 WBC 0 /100 WBCS (0.0-0.0); Platelet Count 366 X 10*3/uL (140-440); RDW 14.1 % (11.5-14.5); WBC 9.29 X 10*3/uL (4.50-10.00)
[2021-04-29] MEDS: CHOLECALCIFEROL 125 MCG (5000 IU) TABLET PO SCH (09:44)
[2021-04-29] MEDS: CYANOCOBALAMIN 500 MCG TAB PO SCH (09:44)
[2021-04-29] MEDS: VITAMIN A 10,000 UNIT (3000 MCG) CAPSULE PO SCH (09:45)
[2021-04-29] MEDS: ASCORBIC ACID 500 MG TAB PO SCH (09:45)
[2021-04-29] MEDS: ENOXAPARIN 40 MG/0.4 ML SYRINGE SQ SCH (09:47)
--- NOTE | 2021-04-29 09:52 | P.PN ---
Subjective Progress Note Date: 04/29/21 Principal diagnosis: Dyspnea on exertion This is a 66-year-old white male with known history of splenectomy, ITP, history of GERD, history of Lyme's disease, ulcerative colitis, and history of colectomy/ileostomy. Patient had COVID-19 infection twice in the last year, he had COVID-19 infection about a year ago in January, and he did not require hospitalization. Patient came down again in March of this year with COVID-19 infection again, did not require hospitalization. Patient managed his symptoms mostly at home. And he always had adequate oxygenation in the 90s during his illness. 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 But improving after running hot water over the fingers. Patient was also feeling very tired, he was a bit concerned, hence he came into the ER. Workup included a CT angiogram of the chest which came back negative except for peripheral reticular glass opacities and some bronchial wall thickening. Mild peripheral fibrotic changes noted on the CT of the chest. There was also evidence of slightly enlarged lymph nodes in the mediastinum, there was also wall thickening of the distal esophagus. Patient had relatively normal CBC. However he had a 31% eosinophilia noted on the differential. His pro-calcitonin was 0.16, otherwise his labs were basically unremarkable. On physical examination, the patient sounded very clear, no evidence of any crackles or rhonchi or wheezes. I am recommending however an ABG on this patient, results of which are pending. The patient is seen today 04/29/2021 in follow-up on the regular medical floor. He is up ambulating in his room. Awake and alert in no acute distress. He denies any worsening shortness of breath, cough or congestion. he's been mainta ining O2 saturation in the 90s on room air. Afebrile. Hemodynamically stable. Arterial blood gases from yesterday revealeda pO2 of 73, pCO2 38 and a pH of 7.43 on room air.C-reactive protein 1.8. AMMY screen was positive. COVID-19 screen negative. Pro-calcitonin 0.16.a VQ scan revealed low probability for pulmonary embolus.He is continued on Pulmicort inhalations, albuterol. Lovenox for DVT prophylaxis. Vitamin supplements. Objective - Vital Signs Vital signs: Vital Signs Temp 98.4 F 04/29/21 06:56 Pulse 82 04/29/21 06:56 Resp 16 04/29/21 01:24 BP 112/69 04/29/21 06:56 Pulse Ox 96 04/29/21 06:56 Intake & Output 04/28/21 04/29/21 04/29/21 18:59 06:59 18:59 Other: Voiding Method Toilet # Voids 2 - Exam GENERAL EXAM: Alert, active, very pleasant 66-year-old gentleman, on room air oxygen, comfortable in no apparent distress. HEAD: Normocephalic. EYES: Normal reaction of pupils, equal size. NOSE: Clear with pink turbinates. THROAT: No erythema or exudates. NECK: No masses, no JVD. CHEST: No chest wall deformity. LUNGS: Equal air entry with no crackles, wheeze, rhonchi or dullness. CVS: S1 and S2 normal with no audible murmur, regular rhythm. ABDOMEN: No hepatosplenomegaly, normal bowel sounds, no guarding or rigidity. SPINE: No scoliosis or deformity SKIN: No rashes CENTRAL NERVOUS SYSTEM: No focal deficits, tone is normal in all 4 extremities. EXTREMITIES: There is no peripheral edema. No clubbing, no cyanosis. Peripheral pulses are intact. - Labs CBC & Chem 7: 04/27/21 15:01 04/27/21 15:01 Labs: Abnormal Lab Results - Last 24 Hours (Table) 04/27/21 04/28/21 04/28/21 Range/Units 15:01 18:26 18:26 ABG pO2 (83-108) mmHg ABG Total CO2 (19-24) mmol/L C-Reactive Protein 1.8 H (<1.0) mg/dL Procalcitonin 0.16 H (0.02-0.09) ng/mL AMMY Screen POSITIVE A (NEGATIVE) 04/28/21 Range/Units 20:19 ABG pO2 73 L (83-108) mmHg ABG Total CO2 26 H (19-24) mmol/L C-Reactive Protein (<1.0) mg/dL Procalcitonin (0.02-0.09) ng/mL AMMY Screen (NEGATIVE) Assessment and Plan Assessment: 1 Dyspnea on exertion suspect secondary to postinflammatory changes from COVID- 19 pneumonia. Improved and on room air oxygen. Propulsid 0.16. VQ scan revea led low probability for PE. 2 Mediastinal adenopathy, most likely reactive due to his history of CoVID. Within the differential is also included sarcoidosis, lymphoma, cancer. 3 Eosinophilia of unclear etiology. Possibly related to his use of NSAIDs, possibly ALLERGIC, parasitic, malignancy. Less likely eosinophilic myalgia syndrome 4 Symptoms of Raynaud's phenomenon with elevated AMMY and possible connective tissue disorder, rheumatoid 5 History of splenectomy secondary to idiopathic thrombocytopenia 6 History of Lyme disease 7appearing disorder 8 Hyperlipidemia 9 History of ulcerative colitis with bowel resection and ileostomy 10Gastroesophageal reflux disease Plan: The patient was seen and evaluated by Dr. Go Cleared for discharge from the pulmonary standpoint Would recommend 3 month follow-up computed tomography scan of the chest If normal, most likely adenopathy was reactive If abnormal would recommend a PET scan and possible [id number] Recommend rheumatology consult for suspected connective-tissue disorder Oncology consult for eosinophilia Follow up with Dr. Go in the office in 1-2 weeks' I, the cosigning physician, performed a history & physical examination of the patient. Lungs sounds are clear. Maintaining good O2 saturations in the 90s on room air. I discussed the assessment and plan of care with my nurse practitioner, Luzma Hein. I attest to the above note as dictated by her.
--- NOTE | 2021-04-29 10:13 | P.CRDCN ---
History of Present Illness Consult date: 04/28/21 History of present illness: HISTORY OF PRESENT ILLNESS: This is a 66-year-old male with a past medical history significant for idiopathic thrombocytopenia, splenectomy, and ulcerative colitis with ileostomy. 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 We have been asked to see the patient in consultation for shortness of breath on exertion. Patient examined at the bedside. The patient reports having Covid in March 2021. The patient reports having shortness of breath over the past few weeks that has gotten gradually worse. He states he is normally very active so for him to get short of breath with activity is unusual. He denies any chest pain or pressure. He also reports feeling generalized weakness and states his arms and legs feel very heavy. He also reports having white fingertips lately which he has not had in the past. Denies any history of Raynauds. The patient is a lifelong nonsmoker. He reports a history of heart disease on his mothers side. EKG reveals sinus mechanism with no signs of acute ischemia. Chest xray mild patchy opacity over the left base could represent pneumonia in the appropriate clinical setting Chest CT: No pulmonary mows in. Peripherally predominant reticular glass opacities in the cranial caudal gradient as well as diffuse bronchial wall thickening. Numerous enlarged mediastinal and hilar lymph nodes and prominent but nonenlarged axillary lymph nodes as well as prominent upper abdominal lymph nodes. Findings are favored to relate to inflammatory/infectious process. Wall thickening of the distal esophagus. VQ scan: Low probability for PE Laboratory data: WBC 8.7. Hemoglobin 14.2. Platelet count 366. D-dimer 1.44. Sodium 136. Potassium 4.0. BUN 16. Creatinine 1.01. Troponin negative 1. ProBNP 66. Current home cardiac medications include none REVIEW OF SYSTEMS: At the time of my exam: CONSTITUTIONAL: Denies fever or chills. HEENT: Denies blurred vision, vision changes, or eye pain. Denies hemoptysis CARDIOVASCULAR: Denies chest pain. Denies orthopnea. Denies PND. Denies palpitations RESPIRATORY: + shortness of breath with exertion. GASTROINTESTINAL: Denies abdominal pain. Denies nausea or vomiting. HEMATOLOGIC: Denies bleeding disorders. GENITOURINARY: Denies any blood in urine. SKIN: Denies pruitis. Denies rash. PHYSICAL EXAM: VITAL SIGNS: Reviewed. GENERAL: Well-developed in no acute distress. HEENT: Head is normocephalic. Pupils are equal, round. Sclerae anicteric. Mucous membranes of the mouth are moist. Neck supple. No JVD or thyromegaly LUNGS: Respirations even and unlabored. Lungs essentially clear to auscultation bilaterally. HEART: Regular rate and rhythm. S1 and S2 heard. ABDOMEN: Soft. Nondistended. Nontender. EXTREMITIES: Normal range of motion. No clubbing or cyanosis. Peripheral pulses intact. No lower extremity edema NEUROLOGIC: Awake and alert. Oriented x 3. ASSESSMENT: Shortness of breath with exertion, r/o angina, r/o coronary artery disease, r/o covid related cardiomyopathy History of Covid, March 2021 Elevated D-Dimer, CTA and VQ scan negative for PE History of idiopathic thrombocytopenia History of splenectomy History of ulcerative colitis with ileostomy PLAN: An acute coronary event has been ruled out Continue current cardiac medications Obtain 2D echo to assess cardiac structure and function Obtain ETT today Further recommendations pending patient course Nurse practitioner note has been reviewed by physician. Signing provider agrees with the documented findings, assessment, and plan of care. Past Medical History Past Medical History: Blood Disorder, GERD/Reflux, Hearing Disorder / Deafness, Hyperlipidemia Additional Past Medical History / Comment(s): Dx idiopathic thrombocytopenia, no further problems since spleen removed, hx. Lyme disease,. Ulcerative colitis- surgery & has ileostomy, frequent burning in stomach, occasional dysphagia History of Any Multi-Drug Resistant Organisms: None Reported Past Surgical History: Bowel Resection, Orthopedic Surgery Additional Past Surgical History / Comment(s): BONE MARROW BX 12/12/13. Hx iliostomy age 27 for ulcerative colitis, Hx carpal tunnel release bilat., repair deviated nasal septum, LAPAROSCOPIC SPLENECTOMY; Nose surgery repair for broken nose Past Anesthesia/Blood Transfusion Reactions: No Reported Reaction Past Psychological History: No Psychological Hx Reported Smoking Status: Never smoker Past Alcohol Use History: Occasional Past Drug Use History: None Reported - Past Family History Mother Family Medical History: Cancer Father Family Medical History: Cancer Medications and Allergies Home Medications Medication Instructions Recorded Confirmed Type Albuterol Sulfate [Proair Hfa] 2 puff INHALATION RT-Q4H PRN 04/27/21 04/27/21 History Ascorbic Acid [Vitamin C] 1,000 mg PO DAILY 04/27/21 04/27/21 History Cholecalciferol [Vitamin D3 (125 125 mcg PO DAILY 04/27/21 04/27/21 History Mcg = 5000 Iu)] Cyanocobalamin (Vitamin B-12) 1,000 mcg PO DAILY 04/27/21 04/27/21 History [Vitamin B-12] Vitamin A [Vitamin A (8,000 Units 2,400 mcg PO DAILY 04/27/21 04/27/21 History = 2,400 MCG)] Zinc 50 mg PO DAILY 04/27/21 04/27/21 History Allergies Allergy/AdvReac Type Severity Reaction Status Date / Time No Known Allergies Allergy Verified 04/27/21 17:14 Physical Exam Vitals: Vital Signs Temp Pulse Pulse Resp BP BP Pulse Ox 04/28/21 08:40 97.7 F 90 18 115/73 92 L 04/28/21 08:39 92 04/28/21 08:24 88 04/28/21 02:00 98.9 F 70 15 123/70 97 04/28/21 00:02 78 18 04/27/21 21:55 96 04/27/21 21:46 97.8 F 78 18 106/57 96 04/27/21 20:58 79 20 117/67 98 04/27/21 19:29 98.2 F 65 18 117/64 92 L 04/27/21 14:09 97.6 F 82 20 128/76 95 Intake and Output 04/27/21 04/28/21 04/28/21 22:59 06:59 14:59 Other: Voiding Method Toilet # Voids 2 Weight 79.379 kg Results 04/29/21 04:37 04/27/21 15:01 Cardiac Enzymes 04/27/21 04/27/21 Range/Units 15:01 15:01 AST 38 (17-59) U/L Troponin I <0.012 (0.000-0.034) ng/mL Coagulation 04/27/21 Range/Units 15:01 PT 11.0 (9.0-12.0) sec APTT 24.9 (22.0-30.0) sec CBC 04/27/21 Range/Units 15:01 WBC 8.7 (3.8-10.6) k/uL RBC 4.49 (4.30-5.90) m/uL Hgb 14.2 (13.0-17.5) gm/dL Hct 43.3 (39.0-53.0) % Plt Count 366 (150-450) k/uL Comprehensive Metabolic Panel 04/27/21 Range/Units 15:01 Sodium 136 L (137-145) mmol/L Potassium 4.0 (3.5-5.1) mmol/L Chloride 107 (98-107) mmol/L Carbon Dioxide 22 (22-30) mmol/L BUN 16 (9-20) mg/dL Creatinine 1.01 (0.66-1.25) mg/dL Glucose 147 H (74-99) mg/dL Calcium 8.5 (8.4-10.2) mg/dL AST 38 (17-59) U/L ALT 25 (4-49) U/L Alkaline Phosphatase 102 (38-126) U/L Total Protein 6.4 (6.3-8.2) g/dL Albumin 2.7 L (3.5-5.0) g/dL Current Medications Generic Name Dose Route Start Last Admin Trade Name Prestonq PRN Reason Stop Dose Admin Acetaminophen 650 mg 04/27/21 21:55 Acetaminophen Tab 325 Mg Tab PO Q6HR PRN Mild Pain or Fever > 100.5 Albuterol Sulfate 2.5 mg 04/27/21 21:54 04/28/21 08:24 Albuterol Nebulized 2.5 Mg/3 Ml INHALATION 2.5 mg RT-Q4H PRN Administration Shortness Of Breath Alprazolam 0.25 mg 04/27/21 21:55 Alprazolam 0.25 Mg Tab PO Q6HR PRN Anxiety Ascorbic Acid 1,000 mg 04/28/21 09:00 04/28/21 08:44 Ascorbic Acid 500 Mg Tab PO 1,000 mg DAILY LEYDI Administration Budesonide 0.5 mg 04/27/21 20:00 04/28/21 08:24 Budesonide 0.5 Mg/2 Ml Nebu INHALATION 0.5 mg RT-BID LEYDI Administration Calcium Carbonate/Glycine 1,000 mg 04/27/21 21:55 Calcium Carbonate 500 Mg Chewable PO Q4HR PRN Dyspepsia Cholecalciferol 125 mcg 04/28/21 09:00 04/28/21 08:44 Cholecalciferol 125 Mcg (5000 Iu) Tablet PO 125 mcg DAILY LEYDI Administration Cyanocobalamin 1,000 mcg 04/28/21 09:00 04/28/21 08:44 Cyanocobalamin 500 Mcg Tab PO 1,000 mcg DAILY LEYDI Administration Enoxaparin Sodium 40 mg 04/27/21 22:00 04/28/21 08:44 Enoxaparin 40 Mg/0.4 Ml Syringe SQ 40 mg DAILY LEYDI Administration Sodium Chloride 1,000 mls @ 50 mls/hr 04/27/21 19:36 04/27/21 23:26 Saline 0.9% IV 04/28/21 15:35 50 mls/hr .Q20H ONE Administration Lactulose 20 gm 04/27/21 21:55 Lactulose 20 Gm/30 Ml Cup PO DAILY PRN Constipation Melatonin 3 mg 04/27/21 21:55 Melatonin 3 Mg Tablet PO HS PRN Insomnia Naloxone HCl 0.2 mg 04/27/21 21:55 Naloxone 0.4 Mg/Ml 1 Ml Vial IV Q2M PRN Opioid Reversal Ondansetron HCl 4 mg 04/27/21 21:55 Ondansetron 4 Mg/2 Ml Vial IVP Q8HR PRN Nausea And Vomiting Vitamin A 10,000 unit 04/28/21 09:00 04/28/21 08:44 Vitamin A 10,000 Unit (3000 Mcg) Capsule PO 10,000 unit DAILY LEYDI Administration Zinc Sulfate 220 mg 04/28/21 09:00 04/28/21 08:44 Zinc Sulfate 220 Mg Cap PO 220 mg DAILY LEYDI Administration Intake and Output 04/27/21 04/28/21 04/28/21 22:59 06:59 14:59 Other: Voiding Method Toilet # Voids 2 Weight 79.379 kg 04/27/21 15:01 04/27/21 15:01
--- NOTE | 2021-04-29 10:36 | ECHOF ---
Referral Reason:Short of breath MEASUREMENTS -------- HEIGHT: 177.8 cm WEIGHT: 79.4 kg BP: 123/70 RVIDd: 2.8 cm (< 3.3) IVSd: 1.5 cm (0.6 - 1.1) LVIDd: 4.0 cm (3.9 - 5.3) LVPWd: 1.4 cm (0.6 - 1.1) IVSs: 1.7 cm LVIDs: 2.7 cm LVPWs: 1.8 cm LAESV Index (A-L): 23.78 ml/m Ao Diam: 3.6 cm (2.0 - 3.7) AV Cusp: 1.9 cm (1.5 - 2.6) MV EXCURSION: 16.486 mm (> 18.000) MV EF SLOPE: 102 mm/s (70 - 150) EPSS: 0.3 cm MV E Bill: 0.64 m/s MV DecT: 188 ms MV A Bill: 0.50 m/s MV E/A Ratio: 1.28 AR PHT: 519 ms RAP: 5.00 mmHg RVSP: 20.19 mmHg FINDINGS -------- Sinus rhythm. This was a technically adequate study. The left ventricular size is normal. There is moderate concentric left ventricular hypertrophy. O verall left ventricular systolic function is normal with, an EF between 55 - 60 %. The diastolic fi lling pattern is normal for the age of the patient {E/E'}. The right ventricle is normal in size. Normal LA size by volume 22+/-6 ml/m2. The right atrial size is normal. Interatrial and interventricular septum intact. There is mild aortic valve sclerosis. There is mild aortic regurgitation. There is no evidence of aortic stenosis. The mitral valve leaflets are mild to moderately thickened. No mitral regurgitation. An echodens ity attached to the anterior ML. Mild tricuspid regurgitation present. There is no evidence of pulmonary hypertension. The right v entricular systolic pressure, as measured by Doppler, is 20.19mmHg. The aortic root size is normal. IVC Not well visulized. There is no pericardial effusion. CONCLUSIONS -------- 1. The left ventricular size is normal. 2. There is moderate concentric left ventricular hypertrophy. 3. Overall left ventricular systolic function is normal with, an EF between 55 - 60 %. 4. There is mild aortic valve sclerosis. 5. There is mild aortic regurgitation. 6. The mitral valve leaflets are mild to moderately thickened. 7. An echodensity attached to the anterior ML. 8. Mild tricuspid regurgitation present. TRACK CAR OPERATOR: Sharita Her RDCS
[2021-04-29 13:16] LABS: Basophils # (A) 0.02 X 10*3/uL (0.00-0.10); Basophils % (A) 0.2 %; Eosinophils # (A) 2.75 X 10*3/uL (0.04-0.35); Eosinophils % (A) 29.6 %; Immature Grans, Automated 1.5 %; Lymphocytes % (A) 19.4 %; Monocytes # (A) 0.19 X 10*3/uL (0.20-1.00); Neutrophils # (A) 4.39 X 10*3/uL (1.80-7.70); Neutrophils % (A) 47.3 %
[2021-04-29 14:47] VITALS: BP 111/64; PULSE 87; TEMP 98.2
--- NOTE | 2021-04-29 14:49 | EST ---
EXERCISE STRESS DATE OF STUDY: 04/29/2021 AGE: 66 SEX: M HT: 5'10" WT: 175 lbs. PROTOCOL: Vince STAGE: 3 DURATION OF EXERCISE: 8:05 HEART RATE REST: 89 BLOOD PRESSURE REST: 117/88 MAXIMUM HEART RATE ACHIEVED: 148 MAXIMUM BLOOD PRESSURE: 180/79 85% MPHR: 130 100% MPHR: 153 METS: 10.3 INDICATIONS: Vince CLINICAL INFORMATION: STRESS DATA: Heart rate 89, pressure is 117/88 mmHg. Baseline EKG showed sinus mechanism. The patient exercised on the treadmill according to Vince protocol for a total of 8 minutes and achieved 10.3 METS. Max heart rate was 148, which is about 97% of maximum predicted heart rate, with maximum blood pressure of 180/79 mmHg. Clinically the patient did not have any symptoms of chest pain or chest discomfort. The EKG did not show any significant ST or T-wave abnormalities concerning for ischemia. CONCLUSION: 1. Excellent exercise tolerance. 2. Normal EKG in response to exercise. 3. Essentially normal stress test for the patient. MMODL / IJN: [id number] /
--- NOTE | 2021-04-29 15:38 | P.CONS ---
History of Present Illness - Reason for Consult Consult date: 04/29/21 eosinophillia Requesting physician: Kal Go - Chief Complaint SOB - History of Present Illness Mr. Florez is a pleasant male pt known to Dr. Smith with Hx of ITP. He was a dmitted to [facility] 06/19/13 with c/o easy bruising, petechiae on his legs, nose bleeds and blood blisters in his mouth, progressive over 2 months, plt 5000. Seen by Dr. Lundberg, and felt to have ITP. He apparently had a good response to IVIg and steroids, with plt increasing to 82 by 06/28/13. Based on this response, a bone marrow was not deemed necessary. He was discharged on tapering prednisone, which he was unable to tolerate so, he tapered as he wanted and then stopped it. Plt 15 by 07/03/13. He then restarted Prednisone, and was adjusting the dose himself, based on how he felt. He was on 50 mg/day at his 1st OV, with plt of 45, he was unable to f/u with Dr Lundberg due to scheduling issues, and was thus referred to . ITP quickly returned once steroids stopped. He was refractory to rituxan, then to steroids on next attempt to dose. Pt opted for splenectomy and after a transition period he remained on observation, last seen 12/07/14. We are asked to see pt for eosinophilia, currently admitted for SOB. He states he had covid twice. His CTA showed no PE but LAD and bronchial thickening suggestive of infection, inflammatory process. Denies fever, rash, allergy /allergic reactions recently, 14 point ROS is otherwise negative. Review of Systems 10 point ROS is neg except at stated in HPI Past Medical History Past Medical History: Blood Disorder, GERD/Reflux, Hearing Disorder / Deafness, Hyperlipidemia Additional Past Medical History / Comment(s): Dx idiopathic thrombocytopenia, no further problems since spleen removed, hx. Lyme disease,. Ulcerative colitis-s urgery & has ileostomy, frequent burning in stomach, occasional dysphagia History of Any Multi-Drug Resistant Organisms: None Reported Past Surgical History: Bowel Resection, Orthopedic Surgery Additional Past Surgical History / Comment(s): BONE MARROW BX 12/12/13. Hx iliostomy age 27 for ulcerative colitis, Hx carpal tunnel release bilat., repair deviated nasal septum, LAPAROSCOPIC SPLENECTOMY; Nose surgery repair for broken nose Past Anesthesia/Blood Transfusion Reactions: No Reported Reaction Past Psychological History: No Psychological Hx Reported Smoking Status: Never smoker Past Alcohol Use History: Occasional Past Drug Use History: None Reported - Past Family History Mother Family Medical History: Cancer Father Family Medical History: Cancer Medications and Allergies Home Medications Medication Instructions Recorded Confirmed Type Albuterol Sulfate [Proair Hfa] 2 puff INHALATION RT-Q4H PRN 04/27/21 04/27/21 History Ascorbic Acid [Vitamin C] 1,000 mg PO DAILY 04/27/21 04/27/21 History Cholecalciferol [Vitamin D3 (125 125 mcg PO DAILY 04/27/21 04/27/21 History Mcg = 5000 Iu)] Cyanocobalamin (Vitamin B-12) 1,000 mcg PO DAILY 04/27/21 04/27/21 History [Vitamin B-12] Vitamin A [Vitamin A (8,000 Units 2,400 mcg PO DAILY 04/27/21 04/27/21 History = 2,400 MCG)] Zinc 50 mg PO DAILY 04/27/21 04/27/21 History Allergies Allergy/AdvReac Type Severity Reaction Status Date / Time No Known Allergies Allergy Verified 04/27/21 17:14 Physical Exam Vitals: Vital Signs Temp Pulse Pulse Resp BP Pulse Ox 04/29/21 06:56 98.4 F 82 112/69 96 04/29/21 01:24 98.5 F 91 16 128/60 94 L 04/28/21 20:35 92 04/28/21 20:19 90 04/28/21 19:47 98.0 F 90 15 114/73 95 04/28/21 19:45 16 04/28/21 17:54 88 04/28/21 17:45 88 04/28/21 14:00 97.9 F 86 18 106/63 94 L Intake and Output 04/28/21 04/29/21 04/29/21 22:59 06:59 14:59 Other: Voiding Method Toilet # Voids 2 - Constitutional General appearance: average body habitus, cooperative, no acute distress - EENT Eyes: anicteric sclerae, EOMI ENT: hearing grossly normal, normal oropharynx - Neck Neck: no lymphadenopathy - Respiratory Respiratory: bilateral: CTA - Cardiovascular Rhythm: regular Heart sounds: normal: S1, S2 Abnormal Heart Sounds: no systolic murmur, no diastolic murmur, no rub, no S3 Gallop, no S4 Gallop, no click, no other leg Peripheral Edema: bilateral: None - Gastrointestinal General gastrointestinal: normal bowel sounds, soft - Integumentary Integumentary: normal - Neurologic Neurologic: CNII-XII intact - Musculoskeletal Musculoskeletal: strength equal bilaterally - Psychiatric Psychiatric: A&O x's 3, appropriate affect, intact judgment & insight Results CBC & Chem 7: 04/29/21 04:37 04/27/21 15:01 Labs: Abnormal Lab Results - Last 24 Hours (Table) 04/27/21 04/28/21 04/28/21 Range/Units 15:01 18:26 18:26 ABG pO2 (83-108) mmHg ABG Total CO2 (19-24) mmol/L C-Reactive Protein 1.8 H (<1.0) mg/dL Procalcitonin 0.16 H (0.02-0.09) ng/mL AMMY Screen POSITIVE A (NEGATIVE) 04/28/21 Range/Units 20:19 ABG pO2 73 L (83-108) mmHg ABG Total CO2 26 H (19-24) mmol/L C-Reactive Protein (<1.0) mg/dL Procalcitonin (0.02-0.09) ng/mL AMMY Screen (NEGATIVE) Chest x-ray: report reviewed CT scan - chest: report reviewed Assessment and Plan (1) Eosinophilia Narrative/Plan: Normal WBC with elevated eosinophils. CBC otherwise normal Pt is s/p 2 infections with covid 19. 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 Elevated level could be related to this. IgE level ordered. F/U in 2-3 weeks to reevalute differential. If persistent more specific work up will be ordered. Dr. Smith explained labs and plan. If pt does have a primary pathologic marrow condition resulting in eosinophilia, with otherwise normal labs, it is managed with observation. All pt questions answered to his satisfaction. Current Visit: Yes Status: Acute Priority: High Code(s): D72.10 - EOSINOPHILIA, UNSPECIFIED SNOMED Code(s): 521182518 Plan: Doctor attests: I performed a history and physical examination of this patient, developed impression and plan of care, discussed with dictator. I agree with dictators note, documented as a scribe.
[2021-04-29 17:32] LABS: Erythrocyte Sedimentation Rate 9 mm/Hr (0-20)
--- NOTE | 2021-04-29 21:56 | P.DS ---
Providers Date of admission: 04/27/21 19:36 Expected date of discharge: 04/29/21 Attending physician: Jesu Borrero Consults: 04/27/21 19:36 Consult Physician Urgent Consulting Provider: Lenny Abad Consult Reason/Comments: Dyspnea Do you want consulting provider notified?: Yes 04/28/21 12:38 Consult Physician Routine Consulting Provider: Lj Gr Consult Reason/Comments: SOB with xertion Do you want consulting provider notified?: Yes 04/29/21 08:06 Consult Physician Routine Consulting Provider: Gilson Smith Consult Reason/Comments: eosinophilia Do you want consulting provider notified?: Yes [facility] [place] [facility] Course: Chief Complaint: Short of breath with exertion This is a very pleasant 66-year-old patient who follows with Dr. Markie Oscar. 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 Patient empties his ileostomy every 4-5 hours daily. This was done at age 27. Patient had COVID initially about a year ago in January. Was not hospitalized. In February 2021 patient was treated for pneumonia. In March of this year patient again had COVID was not hospitalized. Patient managed himself at home. His pulse ox never dropped below 90. Patient is at her baseline very active. 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 He is noted that with exertion he gets short of breath climbing flight of stairs. He was at the martial art competition in [place] a noticed that with any activity is legs arms became very weak. Short of breath. No chest pain. No fever no chills. Patient also having episodes and a repair fingers become white and blue when exposed to cold. No chest pain. No dizziness, lightheadedness. Patient does feel tired. Patient also has an active job at the [employer]. He does have significant stress. Patient stress test was negative. CT chest negative for PE. VQ scan negative for peripheral PE. 2-D echocardiogram unremarkable. CT chest showing evidence of chronic disease. Including peribronchial cuffing. Elevated a slow fill. Patient be discharged on Symbicort. Will follow up outpatient with pulmonary, rheumatology Dr. East for Mich's phenomena, and Dr. Smith feosinophilia. Otherwise patient is minimum respiratory symptoms. Discussed at length with the patient. Questions answered. Discussion and discharge planning more than 35 minutes Past medical history to include: GERD, hard of hearing, hyperlipidemia, ITP, Lyme disease, ulcerative colitis with total colectomy resultant ileostomy at age of 27, splenectomy. Social history: . 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 In [place]. Alcohol occasionally. Family history: Cancer Physical examination: VITAL SIGNS: 98.2, 87, 16, 11 1 x 64, 96% room air GENERAL: BMI 25.1, sitting in bed, awake, comfortable. EYES: Pupils equal. Conjunctiva normal. HEENT: External appearance of nose and ears normal, oral cavity grossly normal. NECK: JVD not raised; masses not palpable. HEART: First and second heart sounds are normal; no edema. LUNGS: Respiratory rate normal; clear to auscultation. ABDOMEN: Soft, nontender, liver spleen not palpable, no masses palpable. PSYCH: Alert and oriented x3; mood and affect normal. MUSCULOSKELETAL:No Clubbing/cyanosis;muscles-grossly intact. Some evidence of OA NEUROLOGICAL: Cranial nerves grossly intact; no facial asymmetry, power and sensation grossly intact. LYMPHATICS: No lymph nodes palpable in the axilla and neck INVESTIGATIONS, reviewed in the clinical context: April 29: White count 9.2 hemoglobin 12.5 increased eosinophils. Exercise stress test: Negative for ischemia ABG: PCO2 38 pO2 73 IgE 106. AMMY screen positive White count 8.7 hemoglobin 14.2 platelets 366 eosinophils 2.7 sodium 136 potassium 4 creatinine 1.01 Albumin 2.7 pro-calcitonin 0.16 Coronavirus [PCR]: Not detected EKG tracing personally reviewed by me-normal sinus rhythm. Chest x-ray film personally reviewed by me-possible interstitial prominence/f ibrosis CT chest angio for PE: Peripheral reticular opacities in a craniocaudal gradient. Diffuse bronchial wall thickening. Prominent lymph nodes. Distal esophagus wall thickening.. Negative for PE VQ scan: Low probability for PE. Assessment and plan: -Chronic lung changes likely from COVID-19. Patient follow-up with pulmonary's outpatient. Repeat CT chest. Will need full PFTs to get a baseline. -eosinohilia Further workup with outpatient -Exercise stress test-negative. 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 Given the nature of COVID-19 this may have elicited low-grade arteritis/inflammation. We'll have the patient follow up with director of business applications an outpatient. Told the patient to use mittens to keep his hand warm. -Anxiety work-related. Patient advised about mindfulness. Disposition: Home Plan - Discharge Summary Discharge Rx Participant: Yes New Discharge Prescriptions: New Omeprazole [PriLOSEC] 10 mg PO BID #60 cap Budesonide/Formoterol Fumarate [Symbicort 80-4.5 Mcg Inhaler] 1 puff INHALATION BID #10.2 gm Continue Vitamin A [Vitamin A (8,000 Units = 2,400 MCG)] 2,400 mcg PO DAILY Ascorbic Acid [Vitamin C] 1,000 mg PO DAILY Albuterol Sulfate [Proair Hfa] 2 puff INHALATION RT-Q4H PRN PRN Reason: Shortness Of Breath Zinc 50 mg PO DAILY Cholecalciferol [Vitamin D3 (125 Mcg = 5000 Iu)] 125 mcg PO DAILY Cyanocobalamin (Vitamin B-12) [Vitamin B-12] 1,000 mcg PO DAILY Discharge Medication List Albuterol Sulfate [Proair Hfa] 2 puff INHALATION RT-Q4H PRN 04/27/21 [History] Ascorbic Acid [Vitamin C] 1,000 mg PO DAILY 04/27/21 [History] Cholecalciferol [Vitamin D3 (125 Mcg = 5000 Iu)] 125 mcg PO DAILY 04/27/21 [History] Cyanocobalamin (Vitamin B-12) [Vitamin B-12] 1,000 mcg PO DAILY 04/27/21 [History] Vitamin A [Vitamin A (8,000 Units = 2,400 MCG)] 2,400 mcg PO DAILY 04/27/21 [History] Zinc 50 mg PO DAILY 04/27/21 [History] Budesonide/Formoterol Fumarate [Symbicort 80-4.5 Mcg Inhaler] 1 puff INHALATION BID #10.2 gm 04/29/21 [Rx] Omeprazole [PriLOSEC] 10 mg PO BID #60 cap 04/29/21 [Rx] Follow up Appointment(s)/Referral(s): Kal Go MD [STAFF PHYSICIAN] - 4 Weeks Gilson Smith MD [STAFF PHYSICIAN] - 06/10/21 1:30 pm (Appt is at the location behind [facility], [address]) Markie Verde DO [Primary Care Provider] - 1-2 days Kelly East MD [STAFF PHYSICIAN] - 1 Week ([facility]) Discharge Disposition: HOME SELF-CARE
[2021-04-30] MEDS ORDERED: ASPIRIN 81 MG PO SCH (09:00)
[2021-04-30 16:29] LABS: ANA Pattern Homogeneous
[2021-05-01 13:04] LABS: C-ANCA <1:20 Titer (<1:20)
== END 2021-04-29 17:47 | disposition home or self-care (01) ==
LOC: EC 14:06 → 4SSUR 19:36
PROVIDERS: ADMIT Hospitalist; ATTEND Hospitalist
DX: R06.02 Shortness of breath (principal); J98.4 Other disorders of lung; R53.1 Weakness; R53.83 Other fatigue; R59.0 Localized enlarged lymph nodes; R06.09 Other forms of dyspnea; R79.89 Other specified abnormal findings of blood chemistry; K21.9 Gastro-esophageal reflux disease without esophagitis; H91.90 Unspecified hearing loss, unspecified ear; E78.5 Hyperlipidemia, unspecified; K51.90 Ulcerative colitis, unspecified, without complications; D72.10 Eosinophilia, unspecified; R13.10 Dysphagia, unspecified; I73.00 Raynaud's syndrome without gangrene; I08.3 Combined rheumatic disorders of mitral, aortic and tricuspid valves; F41.9 Anxiety disorder, unspecified; Z56.3 Stressful work schedule; Z20.822 Contact with and (suspected) exposure to COVID-19; Z71.9 Counseling, unspecified; Z86.16 Personal history of COVID-19; Z87.01 Personal history of pneumonia (recurrent); Z86.19 Personal history of other infectious and parasitic diseases; Z86.2 Personal history of diseases of the blood and blood-forming organs and certain disorders involving the immune mechanism; Z53.29 Procedure and treatment not carried out because of patient's decision for other reasons; Z90.81 Acquired absence of spleen; Z90.49 Acquired absence of other specified parts of digestive tract; Z93.2 Ileostomy status; Z80.9 Family history of malignant neoplasm, unspecified; Z82.49 Family history of ischemic heart disease and other diseases of the circulatory system
CPT/HCPCS: 96372 ×2; 99285; 36415; 94640 ×2; 36600; 93005; 93017; 93306; 86255; 85379; 83880; 80053; 85652; 82550; 82805; 83605; 83735; 84484; 85025 ×2; 85610; 85730; 86140; 82785; 86038; 86039; 84145; 87635; 71046; 71275; 78582; G0378 ×3; A9503; A9540; J1650 ×2; Q9967

== ENCOUNTER → 2021-07-14 | Outpatient (CLI) | payer BC, MEDICARE ==
--- NOTE | 2021-07-14 15:29 | CT ---
EXAMINATION TYPE: CT chest wo con DATE OF EXAM: 07/14/2021 COMPARISON: 04/27/2021 HISTORY: R91.[address] DLP: 247.[address] of the chest was performed with lung and mediastinal window settings submitted. The la ck of contrast limits evaluation of the vascular, mediastinal and parenchymal structures including th e upper abdomen. LUNGS: Persistent subpleural fibrosis throughout both lung rendon greatest within the mid and lower l noel zones. No focal consolidation at this time. 5 mm pleural-based nodular density right upper lobe i mage 38 of 63 appears slightly smaller in size. No new nodules are seen. No evidence for pleural effu allie or volume loss. MEDIASTINUM/JONATHAN: Thoracic aorta is of normal caliber with limited evaluation given lack of contrast . The heart is not enlarged. No evidence for mediastinal mass. Comment hilar and mediastinal lymph nodes persist and appear to be unchanged. UPPER ABDOMEN: No significant abnormality is seen. OTHER: No significant other abnormality. IMPRESSION: 1. Stable features of subpleural fibrosis which could be postinflammatory in nature. Consider transb ronchial biopsy if felt to be indicated. Pleural-based pulmonary nodule right upper lobe persists alt debra slightly smaller in size.
== END | disposition home or self-care (01) ==
LOC: RADCTMAIN 09:01
PROVIDERS: ATTEND Internal Medicine Hematology & Oncology
DX: R91.1 Solitary pulmonary nodule (principal)
CPT/HCPCS: 71250

== ENCOUNTER 2022-03-17 02:24 | Inpatient (IN) | payer BC, MEDICARE ==
--- NOTE | 2022-03-17 03:03 | XR ---
EXAMINATION TYPE: XR chest 1V DATE OF EXAM: 03/17/2022 COMPARISON: 04/27/2021 HISTORY: Chest pain TECHNIQUE: FINDINGS: Heart is enlarged. There is mild pulmonary congestion. There is some blunting of the costop hrenic angles bilaterally. There are chest leads. There are no hilar masses. IMPRESSION: Mild congestive heart failure with pleural fluid. Abnormalities appear new compared to ol d exam.
[2022-03-17 03:05] LABS: Basophils # (A) 0.1 k/uL (0-0.2); Basophils % (A) 1 %; Eosinophils # (A) 0.6 k/uL (0-0.7); Eosinophils % (A) 4 %; HCT 34.8 % (39.0-53.0); HGB 11.5 gm/dL (13.0-17.5); Lymphocytes # (A) 1.3 k/uL (1.0-4.8); Lymphocytes % (A) 10 %; MCH 30.8 pg (25.0-35.0); MCHC 33.1 g/dL (31.0-37.0); MCV 92.9 fL (80.0-100.0); Mean Platelet Volume 8.5; Monocytes # (A) 0.4 k/uL (0-1.0); Monocytes % (A) 3 %; Neutrophils # (A) 10.6 k/uL (1.3-7.7); Neutrophils % (A) 81 %; Platelet Count 612 k/uL (150-450); RBC 3.75 m/uL (4.30-5.90); RDW 14.5 % (11.5-15.5)
[2022-03-17 03:17] LABS: Albumin 3.3 g/dL (3.5-5.0); Calcium 8.9 mg/dL (8.4-10.2); Magnesium 1.6 mg/dL (1.6-2.3); Potassium 4.7 mmol/L (3.5-5.1); Total Bilirubin 1.2 mg/dL (0.2-1.3); Total Protein 7.5 g/dL (6.3-8.2)
[2022-03-17] MEDS ORDERED: ASPIRIN 325 MG TAB PO ONE (03:20)
[2022-03-17] MEDS ORDERED: NALOXONE 0.4 MG/ML 1 ML VIAL IV PRN (03:21)
[2022-03-17] MEDS ORDERED: ASPIRIN 325 MG TAB ONE (03:24)
[2022-03-17] MEDS ORDERED: IV FLUID CONTINUATION 1,000 ML IV ONE (03:25)
[2022-03-17] MEDS ORDERED: IOPAMIDOL-370 125ML BTL INJ ONE (03:30)
[2022-03-17] MEDS ORDERED: LIDOCAINE 1% INJ 10MG/ML (30 ML VIAL-PF) SQ ONE (03:30)
[2022-03-17] MEDS ORDERED: fentaNYL (PF) 50 MCG/ML 2 ML AMP ONE (03:31)
[2022-03-17] MEDS ORDERED: MIDAZOLAM 2 MG/2 ML VIAL IV ONE (03:32)
[2022-03-17] MEDS ORDERED: fentaNYL (PF) 50 MCG/ML 2 ML AMP IV ONE (03:32)
--- NOTE | 2022-03-17 03:37 | ED ---
General Adult HPI - General Chief complaint: Chest Pain Stated complaint: Chest Pain,SOB Time Seen by Provider: 03/17/22 02:31 Source: patient Mode of arrival: wheelchair Limitations: no limitations - History of Present Illness Initial comments: This is a 66 year old male with a significant past medical history including previous toxoplasmosis and thrombocytosis presents emergency department for chest pain. The patient stated that he had left-sided crushing chest pain that has been present over the last several days however stated that overnight this chest pressure became worse with shortness of breath became to the emergency department. The patient denied any radiation of the chest pain and denied any nausea, vomiting as well as any diaphoresis. The patient did state that he had shortness of breath and pain with deep breathing. The patient denied any other acute pain or complaints at this time. The patient was resting in bed comfortably with mild distress noted. - Related Data Home Medications Medication Instructions Recorded Confirmed Albuterol Sulfate [Proair Hfa] 2 puff INHALATION RT-Q4H PRN 04/27/21 04/27/21 Ascorbic Acid [Vitamin C] 1,000 mg PO DAILY 04/27/21 04/27/21 Cholecalciferol [Vitamin D3 (125 125 mcg PO DAILY 04/27/21 04/27/21 Mcg = 5000 Iu)] Cyanocobalamin (Vitamin B-12) 1,000 mcg PO DAILY 04/27/21 04/27/21 [Vitamin B-12] Vitamin A [Vitamin A (8,000 Units 2,400 mcg PO DAILY 04/27/21 04/27/21 = 2,400 MCG)] Zinc 50 mg PO DAILY 04/27/21 04/27/21 Previous Rx's Medication Instructions Recorded Budesonide/Formoterol Fumarate 1 puff INHALATION BID #10.2 gm 04/29/21 [Symbicort 80-4.5 Mcg Inhaler] Omeprazole [PriLOSEC] 10 mg PO BID #60 cap 04/29/21 Allergies Allergy/AdvReac Type Severity Reaction Status Date / Time No Known Allergies Allergy Verified 03/17/22 02:28 Review of Systems ROS Statement: Those systems with pertinent positive or pertinent negative responses have been documented in the HPI. ROS Other: All systems not noted in ROS Statement are negative. Past Medical History Past Medical History: Blood Disorder, GERD/Reflux, Hearing Disorder / Deafness, Hyperlipidemia, Rheumatoid Arthritis (RA) Additional Past Medical History / Comment(s): Dx idiopathic thrombocytopenia, no further problems since spleen removed, hx. Lyme disease,. Ulcerative colitis- surgery & has ileostomy, frequent burning in stomach, occasional dysphagia History of Any Multi-Drug Resistant Organisms: None Reported Past Surgical History: Bowel Resection, Orthopedic Surgery Additional Past Surgical History / Comment(s): BONE MARROW BX 12/12/13. Hx iliostomy age 27 for ulcerative colitis, Hx carpal tunnel release bilat., repair deviated nasal septum, LAPAROSCOPIC SPLENECTOMY; Nose surgery repair for broken nose Past Anesthesia/Blood Transfusion Reactions: No Reported Reaction Past Psychological History: No Psychological Hx Reported Smoking Status: Never smoker Past Alcohol Use History: Occasional Past Drug Use History: None Reported - Past Family History Mother Family Medical History: Cancer Father Family Medical History: Cancer General Exam Limitations: no limitations General appearance: alert, in no apparent distress Head exam: Present: atraumatic, normocephalic, normal inspection Eye exam: Present: normal appearance, PERRL Pupils: Present: normal accommodation ENT exam: Present: normal exam, normal oropharynx, mucous membranes moist Neck exam: Present: normal inspection, full ROM Respiratory exam: Present: normal lung sounds bilaterally Cardiovascular Exam: Present: regular rate, normal rhythm, normal heart sounds GI/Abdominal exam: Present: soft, normal bowel sounds Extremities exam: Present: normal inspection, full ROM Back exam: Present: normal inspection, full ROM Neurological exam: Present: alert, oriented X3, CN II-XII intact Psychiatric exam: Present: normal affect, normal mood Skin exam: Present: warm, dry Course Vital Signs 03/17/22 03/17/22 03/17/22 02:26 02:49 03:02 Temperature 97.9 F Pulse Rate 100 102 H 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 EKG showed a rate of 109, ND interval 141, QR duration of 88 and QTC of 380. This EKG showed a sinus tachycardia however did have ST segment elevations in lead 2, 3 and aVF consistent with an inferior STEMI. STEMI was paged out at 0241. Medical Decision Making - Medical Decision Making Was pt. sent in by a medical professional or institution? @ -No Did you speak to anyone other than the patient for history? @ -No Did you review nursing and triage notes? @ -Nursing triage notes were obtained and reviewed Were old charts reviewed? @ -No Differential Diagnosis? @ -STEMI, NSTEMI, acute chest wall pain,PE, pneumothorax EKG interpreted by me (3pts min.)? @ -As above X-rays interpreted by me (1pt min.)? @ -[none] CT interpreted by me (1pt min.)? @ -[none] U/S interpreted by me (1pt. min.)? @ -[none] What testing was considered but not performed? (CT, X-rays, U/S, labs)? Why? @Chest x-ray was considered and ordered however the patient was sent to the cardiac catheterization lab prior to completion of workup What meds were considered but not given? Why? @ -Brilenta, Plavix and heparin were considered however the chucking machine set up operator did not contact the emergency department or myself and therefore the patient was sent to the cardiac catheterization lab before medications could be given. Did you discuss the management of the patient with other professionals? @ -Yes, manager dental on-call, Dr. Gr Did you reconcile home meds? @ -[none] Was smoking cessation discussed for >3mins.? @ -[none] Was critical care preformed (if so, how long)? @ -[none] Were there social determinants of health that impacted care today? How? (Homelessness, low income, unemployed, alcoholism, drug addiction, transportation, low edu. Level, literacy, decrease access to med. care, skilled nursing, rehab)? @ -None Was there de-escalation of care discussed even if they declined? (Discuss DNR or withdrawal of care, Hospice)? @ -No What co-morbidities impacted this encounter? (DM, HTN, Smoking, COPD, CAD, Cancer, CVA, Hep., AIDS, mental health diagnosis, sleep apnea, morbid obesity)? @ -Toxoplasmosis, thrombocytosis Was patient admitted / discharged? @ -The patient was seen and evaluated in the emergency department. On physical exam, the patient was resting in bed with mild distress secondary chest pain. A EKG was performed initially on evaluation and did show signs of STEMI. Due to this, a STEMI was called at 0241. I spoke with the manager dental on-call, Dr. Gr at 0244. He did state to call Dr. Gonzalez as this was the chucking machine set up operator. Multiple times were made to call Dr. Gonzalez however he was unable to be reached. Because of the delay in contacting, it was recommended by Dr. Gr, the cardiac Shirt Closer and the nursing supervisor pile driving to send the patient to the cardiac catheterization lab while awaiting contacts. In the interest of the patient's outcome, I did allow this however I did not speak to Dr. Gonzalez re garding recommendations for medications prior to the catheterization. It was determined that Dr. Gr did contact Dr. Gonzalez but we did not learn this until after the patient was in the cardiac catheterization lab. The patient's primary care physician was being covered by [facility] and Anshu Serra was contacted at [phone] and accepted the patient for admission. The patient as well as his daughter were told of this plan and were agreeable. All other questions were answered and the patient was taken to the cardiac catheterization lab in stable condition. Undiagnosed new problem with uncertain prognosis? @ -[none] Drug Therapy requiring intensive monitoring for toxicity (Heparin, Nitro, Insulin, Cardizem)? @ -[none] Were any procedures done? @ -[none] Diagnosis/symptom? @ -Acute STEMI Acute, or Chronic, or Acute on Chronic? @ -Acute Uncomplicated (without systemic symptoms) or Complicated (systemic symptoms)? @ -Uncomplicated Side effects of treatment? @ -[none] Exacerbation, Progression, or Severe Exacerbation] @ -[no] Poses a threat to life or bodily function? @ -Yes - Lab Data Result diagrams: 03/17/22 02:45 03/17/22 02:45 Lab Results 03/17/22 03/17/22 Range/Units 02:45 02:45 WBC 13.0 H (3.8-10.6) k/uL RBC 3.75 L (4.30-5.90) m/uL Hgb 11.5 L (13.0-17.5) gm/dL Hct 34.8 L (39.0-53.0) % MCV 92.9 (80.0-100.0) fL MCH 30.8 (25.0-35.0) pg MCHC 33.1 (31.0-37.0) g/dL RDW 14.5 (11.5-15.5) % Plt Count 612 H (150-450) k/uL MPV 8.5 Neutrophils % 81 % Lymphocytes % 10 % Monocytes % 3 % Eosinophils % 4 % Basophils % 1 % Neutrophils # 10.6 H (1.3-7.7) k/uL Lymphocytes # 1.3 (1.0-4.8) k/uL Monocytes # 0.4 (0-1.0) k/uL Eosinophils # 0.6 (0-0.7) k/uL Basophils # 0.1 (0-0.2) k/uL Sodium 133 L (137-145) mmol/L Potassium 4.7 (3.5-5.1) mmol/L Chloride 101 (98-107) mmol/L Carbon Dioxide 22 (22-30) mmol/L Anion Gap 10 mmol/L BUN 28 H (9-20) mg/dL Creatinine 1.46 H (0.66-1.25) mg/dL Est GFR (CKD-EPI)AfAm 57 (>60 ml/min/1.73 sqM) Est GFR (CKD-EPI)NonAf 49 (>60 ml/min/1.73 sqM) Glucose 159 H (74-99) mg/dL Calcium 8.9 (8.4-10.2) mg/dL Magnesium 1.6 (1.6-2.3) mg/dL Total Bilirubin 1.2 (0.2-1.3) mg/dL AST 39 (17-59) U/L ALT 27 (4-49) U/L Alkaline Phosphatase 177 H (38-126) U/L Total Protein 7.5 (6.3-8.2) g/dL Albumin 3.3 L (3.5-5.0) g/dL Critical Care Time Critical Care Time: Yes Total Critical Care Time: 31 Disposition Clinical Impression: ST elevation myocardial infarction (STEMI) Disposition: ADMITTED IP TO THIS HOSP Condition: Stable Is patient prescribed a controlled substance at d/c from ED?: No Referrals: Markie Verde DO [Primary Care Provider] - 1-2 days Time of Disposition: 03:00 Decision to Admit Reason: Admit from EC Decision Date: 03/17/22 Decision Time: 03:00
[2022-03-17] MEDS ORDERED: RX INFO: IV CONTRAST WAS GIVEN 1 EACH MISC MISCELLANE PRN (03:59)
--- NOTE | 2022-03-17 04:13 | CONS ---
CONSULTATION CHIEF COMPLAINT: Chest pain. HISTORY OF PRESENT ILLNESS: Emil is a 66-year-old gentleman with no prior history of coronary artery disease, presented to hospital complaining of chest pain. He describes it as a precordial chest pressure that started about 2 days ago, has gotten particularly worse early this morning due to which he came to the ER. An EKG on his initial presentation showed acute ST-segment elevation in inferior leads. At the time of my evaluation, it appears the patient was having chest discomfort. PAST MEDICAL HISTORY: Significant for splenectomy. MEDICATIONS: Include prednisone. ALLERGIES: As charted. FAMILY HISTORY: Negative for premature coronary artery disease. SOCIAL HISTORY: Negative for smoking. REVIEW OF SYSTEMS: 14 out of 14 review of systems has been performed. Pertinents are as documented. PHYSICAL EXAMINATION: GENERAL: Comfortable at rest. VITAL SIGNS: Stable. CHEST: Reveals good air entry bilaterally. HEART: Reveals first and second heart sounds. No gallop. ABDOMEN: Soft. EXTREMITIES: Did not reveal any edema. Peripheral pulses are palpable. ASSESSMENT: Acute inferior wall myocardial infarction. PLAN: The patient will undergo emergent cardiac catheterization with a view to performing primary angioplasty. MMODL / IJN: [id number] /
[2022-03-17 04:21] LABS: Glucose,Whole Blood 153 mg/dL (70-110)
[2022-03-17] MEDS: SODIUM CHLORIDE 0.9% 1,000 ML IV SCH ×3 (04:34→21:27)
--- NOTE | 2022-03-17 04:55 | CC ---
CARDIAC CATHETERIZATION REPORT INDICATION: Acute inferior wall MO. PROCEDURE NOTE: After obtaining informed consent, left heart catheterization and coronary angiogram were performed via the right femoral artery using standard Karen catheters. The patient tolerated the procedure well without any obvious immediate complications. A femoral angiogram was performed, and Angio-Seal was deployed for hemostasis. FINDINGS: 1. Hemodynamics: Left ventricular end-diastolic pressure is 20 mm. There is no significant gradient across the aortic valve. 2. Left ventriculogram: Left ventriculogram is performed in COONEY position, shows a normal-sized left ventricle with hypokinesis involving basal inferior wall. 3. Angiographic data: a.Left main coronary artery: Left main coronary artery is a normal-sized vessel and is free of stenosis. Divides into left anterior descending coronary artery and circumflex coronary artery. Circumflex coronary artery shows a mild atherosclerotic plaque. LAD in its midportion shows bridging and the diagonal branch has a 70% to 80% stenosis. Right coronary artery is a large dominant vessel that shows an area of plaque rupture in the proximal portion with a 30% to 40% stenosis. This is probably the vessel responsible for patient's myocardial infarction. CONCLUSION: Significant disease involving the diagonal branch, an area of plaque rupture involving proximal RCA. The patient's clinical presentation with EKG changes are probably related to this. I will obtain a 2D echo in the morning. The on-call auto air conditioning mechanic had reviewed the angiographic data and it was felt that the patient does not need intervention at this time. We will treat him with aspirin, Plavix, nitrates, and statins. His blood pressure is somewhat hypertensive, I am going to give him IV fluids and when the blood pressure improves, we will consider starting him on beta blockers and DAMARI inhibitors. MMODL / IJN: [id number] /
[2022-03-17] MEDS: ATORVASTATIN 40 MG TAB PO SCH (08:36)
[2022-03-17] MEDS: ISOSORBIDE MONONITRATE ER 30 MG TAB.ER.24H PO SCH (08:36)
[2022-03-17] MEDS: ASPIRIN 81 MG PO SCH (08:36)
[2022-03-17] MEDS: METOPROLOL TARTRATE 12.5 MG TAB PO SCH ×3 (08:37→21:01)
[2022-03-17] MEDS: CLOPIDOGREL 75 MG TAB PO SCH (08:37)
[2022-03-17] MEDS: HYDROmorphone 0.5 MG/0.5 ML SYRINGE IVP PRN ×2 (08:37→14:49)
[2022-03-17] MEDS: COLCHICINE 0.6 MG EACH PO SCH ×2 (08:43→21:01)
[2022-03-17 09:13] LABS: Chol/HDL Ratio 4.24 Ratio; LDL Cholesterol,Calculated 103.1 mg/dL (0.0-131.0); VLDL Calculation 19.16 mg/dL (5.00-40.00)
--- NOTE | 2022-03-17 09:37 | PN ---
PROGRESS NOTE SUBJECTIVE: Mr. Florez was admitted early this morning with an ST-elevation MA type picture. Cardiac cath revealed noncritical disease in the RCA with possible plaque rupture. At the time of my evaluation, the patient gives me a history of a D-dimer being 15,000 and had a CAT scan, a PET scan, ID evaluation, and Oncology evaluation at [facility] 2 months ago. However, his clinical picture today suggests more or less of pericarditis with a concavity in the ST elevation, in the inferior as well as other leads. He also has a pericardial rub on evaluation and a pleuritic pain when he takes a deep breath, its worse when he is lying back and better when he leans forwards. OBJECTIVE: HEART: Pericardial rub, otherwise no significant murmurs. LUNGS: Reveal bilateral decent air entry. NECK: There is no JVD. ABDOMEN: Unchanged. LOWER EXTREMITIES: Unchanged. PLAN: I will start him on colchicine 0.6 mg b.i.d., metoprolol tartrate 12.5 mg t.i.d. We will check a CBC, BMP, EKG tomorrow and repeat 1 EKG today. Based on clinical course we will make further recommendations. Additional troponins will also be obtained. Discussed my thoughts in detail with the patient. An echo was performed. We will try and review it this morning. MMDELGADO / VANESSAN: [id number] /
[2022-03-17] MEDS ORDERED: KETOROLAC 15 MG/ML 1 ML VIAL IVP SCH (18:00)
[2022-03-17] MEDS ORDERED: KETOROLAC 15 MG/ML 1 ML VIAL IVP PRN (18:29)
--- NOTE | 2022-03-18 00:39 | P.HPIM ---
History of Present Illness H&P Date: 03/17/22 Chief Complaint: Chest pain Patient is a 66-year-old male with a known history of rheumatoid arthritis, hearing disorder/deafness, hyperlipidemia, idiopathic thrombocytopenia plus postsplenectomy, history of Lyme's disease, history of ulcerative colitis status post surgery and/ileostomy/reversal and lung nodule on follow-up with his doctor at [facility] presents to ER with complaints of chest pain. Patient states that he woke up from sleep last night around 2 AM with crushing chest pain left retrosternal region. Patient has been having chest pain for the past 1 week and worsened last night as well as shortness of breath which made him to come to ER. Patient otherwise denies any radiation of the chest pain. No associated nausea or vomiting. Patient otherwise felt very cold and clammy.. Pain gets worse with deep breathing. Denies any leg swelling. Denies any recent illnesses. Patient states that she was [place] [address] and is follow with his oncologist at [facility],. Patient also states that he was found to have lung nodule and was also seen by parts specialist. Patient was previously admitted to the hospital intergrade 2021 due to exertional dyspnea and postcode inflammatory changes. Patient was seen by hematology due to eosinophilia at the time and was also seen by cardiology. P atient had VQ scan done showed low probability for PE. Chest CTA showed no PE. Peripherally predominant reticular groundglass opacities in the craniocaudal gradient as well as diffuse bronchial wall thickening. Numerous enlarged mediastinal and hilar lymph nodes and prominent but normal enlarged axillary lymph nodes as well as prominent upper abdominal lymph nodes. Findings are favored to relate to inflammatory/infectious process. Wall thickening of the distal esophagus. Correlate with direct visualization. Patient had negative stress test at that time. On admission chest x-ray showed mild congestive heart failure with pleural fluid. Abnormalities appear new compared to old exam. EKG showed acute ST elevation in inferior leads. Patient underwent cardiac catheterization showed significant disease involving the diagonal branch and area of leg rupture involving proximal RCA. Patient does not need intervention at this time as per cardiology. WBC 13.0 hemoglobin 11.5 and platelets 612 Sodium 133 potassium 4.7 chloride 101 BUN 28 and creatinine 1.46 Magnesium 1.6 on admission. Troponin 0.012, 0.024 and 0.041 and 0.037 LDL 103.1 Review of Systems Constitutional: Patient denies any fever or chills . no Generalized weakness. Abdomen: Patient denied any nausea or vomiting or abd. pain Cardiovascular: Patient complains of chest pain retrosternal, pleuritic associated shortness of breath. No leg swelling. Respiratory: patient denied any cough . no sputum production. No shortness of breath Neurologic: Patient denied any numbness or tingling headache. Musculoskeletal: Patient denies any complaints of joint swelling or deformity. Skin: Negative Psychiatric: Negative Endocrine: No heat or cold intolerance. No recent weight gain. Genitourinary: No dysuria or hematuria. All other 14 point ROS negative except the above Past Medical History Past Medical History: Blood Disorder, GERD/Reflux, Hearing Disorder / Deafness, Hyperlipidemia, Rheumatoid Arthritis (RA) Additional Past Medical History / Comment(s): Dx idiopathic thrombocytopenia, no further problems since spleen removed, hx. Lyme disease, Right ear is worse. Ulcerative colitis-surgery & has ileostomy, frequent burning in stomach, occasional dysphagia History of Any Multi-Drug Resistant Organisms: None Reported Past Surgical History: Bowel Resection, Orthopedic Surgery Additional Past Surgical History / Comment(s): BONE MARROW BX 12/12/13. Hx iliostomy age 15 for ulcerative colitis, Hx carpal tunnel release bilat., repair deviated nasal septum, LAPAROSCOPIC SPLENECTOMY; Nose surgery repair for broken nose. Mass on right lung follow up at [facility] possible carcinoma. Past Anesthesia/Blood Transfusion Reactions: No Reported Reaction Past Psychological History: No Psychological Hx Reported Smoking Status: Never smoker Past Alcohol Use History: Occasional Past Drug Use History: None Reported - Past Family History Mother Family Medical History: Cancer Father Family Medical History: Cancer Medications and Allergies Home Medications Medication Instructions Recorded Confirmed Type Cholecalciferol [Vitamin D3 (125 125 mcg PO DAILY 04/27/21 03/17/22 History Mcg = 5000 Iu)] Cyanocobalamin (Vitamin B-12) 1,000 mcg PO DAILY 04/27/21 03/17/22 History [Vitamin B-12] Ibuprofen [Motrin] 400 mg PO Q6HR PRN 03/17/22 03/17/22 History predniSONE 5 mg PO DAILY 03/17/22 03/17/22 History Allergies Allergy/AdvReac Type Severity Reaction Status Date / Time No Known Allergies Allergy Verified 03/17/22 07:47 Physical Exam Vitals: Vital Signs Temp Pulse Pulse Resp BP BP Pulse Ox 03/17/22 10:00 79 23 115/78 97 03/17/22 09:00 84 26 H 113/87 97 03/17/22 08:30 85 13 117/77 94 L 03/17/22 08:00 98.7 F 85 13 110/70 94 L 03/17/22 07:30 86 13 107/75 94 L 03/17/22 07:00 85 13 95/75 94 L 03/17/22 06:50 90 14 95/75 94 L 03/17/22 06:40 86 23 99/70 97 03/17/22 06:30 86 3 L 104/71 94 L 03/17/22 06:20 92 16 104/71 94 L 03/17/22 06:10 86 6 L 105/72 95 03/17/22 06:00 87 16 100/69 96 03/17/22 05:50 86 16 100/69 94 L 03/17/22 05:40 83 18 91/70 95 03/17/22 05:30 86 6 L 103/69 96 03/17/22 05:20 86 9 L 103/69 96 03/17/22 05:10 87 18 98/70 95 03/17/22 05:00 87 21 99/70 93 L 03/17/22 04:50 86 23 99/70 96 03/17/22 04:40 86 18 95/67 96 03/17/22 04:30 87 19 93/76 96 03/17/22 04:20 89 15 101/63 93 L 03/17/22 04:17 90 18 95/65 03/17/22 04:00 86 17 03/17/22 03:02 103 H 18 94/67 100 03/17/22 02:49 102 H 22 96/67 100 03/17/22 02:26 97.9 F 100 24 109/51 98 Intake and Output 03/16/22 03/17/22 03/17/22 22:59 06:59 14:59 Intake Total 1000 375 Output Total 300 Balance 700 375 Intake: IV 500 Intake, IV Titration 500 375 Amount Sodium Chloride 0.9% 1, 500 375 000 ml @ 125 mls/hr IV . Q8H [facility] Rx#:[id number] Output: Urine 300 Other: Voiding Method Urinal Urinal Weight 74.843 kg PHYSICAL EXAMINATION: Patient is lying in the bed comfortably, no acute distress, awake alert and oriented.. HEENT: Normocephalic. Neck is supple. Pupils reactive. Nostrils clear. Oral cavity is moist. Neck reveals no JVD, carotid bruits, or thyromegaly. CHEST EXAMINATION: Trachea is central. Symmetrical expansion. Lung rendon clear to auscultation and percussion. CARDIAC: Normal S1, S2 with no gallops. No murmurs ABDOMEN: Soft. Bowel sounds present. Nontender. No organomegaly. No abdominal bruits. Extremities: reveal no edema. No clubbing or cyanosis Neurologically awake, alert, oriented x3 with well-coordinated movements. No focal deficits noted Skin: No rash or skin lesions. Psychiatric: Coperative. Nonsuicidal, Musculoskeletal: No joint swelling or deformity. Normal range of motion. Results CBC & Chem 7: 03/17/22 02:45 03/17/22 02:45 Labs: Abnormal Lab Results - Last 24 Hours (Table) 03/17/22 03/17/22 03/17/22 Range/Units 02:45 02:45 04:17 WBC 13.0 H (3.8-10.6) k/uL RBC 3.75 L (4.30-5.90) m/uL Hgb 11.5 L (13.0-17.5) gm/dL Hct 34.8 L (39.0-53.0) % Plt Count 612 H (150-450) k/uL Neutrophils # 10.6 H (1.3-7.7) k/uL Sodium 133 L (137-145) mmol/L BUN 28 H (9-20) mg/dL Creatinine 1.46 H (0.66-1.25) mg/dL Glucose 159 H (74-99) mg/dL POC Glucose (mg/dL) (70-110) mg/dL Alkaline Phosphatase 177 H (38-126) U/L Troponin I (0.000-0.034) ng/mL Albumin 3.3 L (3.5-5.0) g/dL HDL Cholesterol 37.70 L (40.00-60.00) mg/dL 03/17/22 03/17/22 Range/Units 04:20 09:50 WBC (3.8-10.6) k/uL RBC (4.30-5.90) m/uL Hgb (13.0-17.5) gm/dL Hct (39.0-53.0) % Plt Count (150-450) k/uL Neutrophils # (1.3-7.7) k/uL Sodium (137-145) mmol/L BUN (9-20) mg/dL Creatinine (0.66-1.25) mg/dL Glucose (74-99) mg/dL POC Glucose (mg/dL) 153 H (70-110) mg/dL Alkaline Phosphatase (38-126) U/L Troponin I 0.041 H* (0.000-0.034) ng/mL Albumin (3.5-5.0) g/dL HDL Cholesterol (40.00-60.00) mg/dL Thrombosis Risk Factor Assmnt - DVT/VTE Prophylaxis DVT/VTE Prophylaxis: Pharmacologic Prophylaxis ordered Assessment and Plan Assessment: Chest pain with ST elevation in the inferior leads. Status post cardiac catheterization and suspected plaque rupture in the RCA. No intervention was required as per cardiology. Possible acute pericarditis with pleuritic chest pain History of COVID-19 infection in April 2021 and was admitted with post-COVID inflammatory changes in the lung. Significantly elevated D-dimer level and is on follow-up with his oncologist at [facility]. Patient had work-up including CT, PET scan and seen by ID. Supposed to get follow-up CT before next follow-up. GERD Hearing disorder/deafness Hyperemia Rheumatoid arthritis History of Lyme's disease History of ulcerative colitis status post ileostomy reversal History of idiopathic thrombocytopenia status post penectomy DVT prophylaxis Heparin subcu DVT prophylaxis Pepcid twice daily Plan: Patient is status post cardiac catheterization and no intervention was required as per cardiology. Continue with aspirin and statins and Plavix and metoprolol. Continue with IV hydration. Patient was started colchicine. Cardiology is on board. Follow-up CRP level. GI and DVT prophylaxis. Discussed with the patient at bedside in detail. Continue to follow closely. Time with Patient: Greater than 30
[2022-03-18] MEDS: MAGNESIUM SULFATE-D5W PMX 1 GM in DEXTROSE/WATER 1 100ML.BAG IVPB SCH ×2 (01:15→02:39)
[2022-03-18] MEDS: SODIUM CHLORIDE 0.9% 1,000 ML IV SCH ×3 (03:46→20:15)
[2022-03-18] MEDS: HYDROmorphone 0.5 MG/0.5 ML SYRINGE IVP PRN ×3 (04:21→16:42)
[2022-03-18 06:26] LABS: Basophils % (A) 0 %; Eosinophils # (A) 0.2 k/uL (0-0.7); Eosinophils % (A) 4 %; HCT 27.6 % (39.0-53.0); Lymphocytes % (A) 15 %; MCHC 33.9 g/dL (31.0-37.0); MCV 94.3 fL (80.0-100.0); Mean Platelet Volume 7.8; Monocytes # (A) 0.2 k/uL (0-1.0); Monocytes % (A) 3 %; Neutrophils # (A) 4.8 k/uL (1.3-7.7); Neutrophils % (A) 76 %; Platelet Count 517 k/uL (150-450); RBC 2.93 m/uL (4.30-5.90); WBC 6.2 k/uL (3.8-10.6)
[2022-03-18 06:31] LABS: African American GFR (CKD) >90 (>60 ml/min/1.73 sqM); Anion Gap 4 mmol/L; Blood Urea Nitrogen 22 mg/dL (9-20); Calcium 8.1 mg/dL (8.4-10.2); Carbon Dioxide 23 mmol/L (22-30); Chloride 104 mmol/L (98-107); Glucose 121 mg/dL (74-99); Non-African American GFR(CKD) 81 (>60 ml/min/1.73 sqM); Potassium 4.3 mmol/L (3.5-5.1); Sodium 131 mmol/L (137-145)
[2022-03-18 06:47] LABS: HGB 9.4 gm/dL (13.0-17.5)
[2022-03-18 07:57] LABS: C Reactive Protein 21.2 mg/dL (<1.0)
[2022-03-18] MEDS: CLOPIDOGREL 75 MG TAB PO SCH (08:29)
[2022-03-18] MEDS: ASPIRIN 81 MG PO SCH (08:29)
[2022-03-18] MEDS: FAMOTIDINE 20 MG TAB PO SCH ×2 (08:29→20:16)
[2022-03-18] MEDS: METOPROLOL TARTRATE 12.5 MG TAB PO SCH (08:29)
[2022-03-18] MEDS: ISOSORBIDE MONONITRATE ER 30 MG TAB.ER.24H PO SCH (08:29)
[2022-03-18] MEDS: ATORVASTATIN 40 MG TAB PO SCH (08:29)
[2022-03-18] MEDS: COLCHICINE 0.6 MG EACH PO SCH ×2 (08:29→20:14)
[2022-03-18] MEDS: HEPARIN SODIUM,PORCINE/PF 5,000 UNIT/0.5 ML SYRINGE SQ SCH ×2 (09:05→20:16)
[2022-03-18] MEDS: INDOMETHACIN 25 MG CAP PO SCH ×3 (09:05→20:14)
[2022-03-18] MEDS: METOPROLOL TARTRATE 25 MG TAB PO SCH ×2 (09:07→20:16)
--- NOTE | 2022-03-18 10:29 | CA ---
Transthoracic Echo Report Name: Emil Flroez Age: 66 Gender: M : 1955 Exam Date: 03/17/2022 11:52 Exam Location: [facility] Ht (in): 70 Wt (lb): 165 Ordering Physician: Lj Gr MD ([id number]) Attending/Referring Phys: Maile OLIVEIRA Security Software Engineer Sharita Her RDCS Procedure CPT: Indications: NH Cardiac Hx: Technical Quality: Fair Contrast 1: Total Dose (mL): Contrast 2: Total Dose (mL): MEASUREMENTS (Male / Female) Normal Values 2D ECHO LV Diastolic Diameter PLAX 4.3 cm 4.2 - 5.9 / 3.9 - 5.3 cm LV Systolic Diameter PLAX 2.5 cm IVS Diastolic Thickness 1.1 cm 0.6 - 1.0 / 0.6 - 0.9 cm LVPW Diastolic Thickness 1.1 cm 0.6 - 1.0 / 0.6 - 0.9 cm LV Relative Wall Thickness 0.5 LA Volume 58.9 cm??? 18 - 58 / 22 - 52 cm??? M-MODE Aortic Root Diameter MM 3.8 cm AV Cusp Separation MM 2.1 cm DOPPLER AV Peak Velocity 165.1 cm/s AV Peak Gradient 10.9 mmHg AI Peak Velocity 532.3 cm/s AI Peak Gradient 113.4 mmHg AI Pressure Half Time 485.1 ms LVOT Peak Velocity 110.7 cm/s LVOT Peak Gradient 4.9 mmHg MV Area PHT 3.5 cm??? Mitral E Point Velocity 93.3 cm/s Mitral A Point Velocity 65.2 cm/s Mitral E to A Ratio 1.4 MV Deceleration Time 217.6 ms TR Peak Velocity 270.0 cm/s TR Peak Gradient 29.2 mmHg Right Ventricular Systolic Press 33.9 mmHg FINDINGS Left Ventricle Mildly increased septal wall thickness. Normal left ventricular systolic function with no obvious regional wall motion abnormalities. Left ventricular ejection fraction is estimated at 55-60 %. Right Ventricle Normal right ventricular size and function. Right ventricular systolic pressure within normal limits. Right Atrium Normal right atrial size. Left Atrium Normal left atrial size. Mitral Valve Structurally normal mitral valve.Trace mitral regurgitation. Aortic Valve Trileaflet aortic valve. No aortic stenosis. Mild aortic regurgitation. Tricuspid Valve Structurally normal tricuspid valve. Mild tricuspid regurgitation. Pulmonic Valve Trace pulmonic regurgitation. Pericardium Moderate to large pericardial effusion. No tamponade characteristics. Aorta Normal size aortic root and proximal ascending aorta. CONCLUSIONS 1. Normal left ventricle size and systolic function 2. Moderate to large pericardial effusion with no evidence of tamponade 3. Mild tricuspid and aortic regurgitation Previewed by: Dr. Twin Gonzalez MD (Electronically Signed) Final Date: 17 March 2022 17:00
--- NOTE | 2022-03-18 10:53 | PN ---
PROGRESS NOTE SUBJECTIVE: Mr. Florez has what seems to be a pericardial effusion with pericarditis. I will obtain some viral Coxsackie titers. I will request Infectious Disease evaluation. Echo revealed preserved systolic function, moderate pericardial effusion. No tamponade. He still has pericardial pain. I am going to place him on Dilaudid, indomethacin, Pepcid, and continue colchicine. We will have the patient sit up in chair. Oxygen saturation is good. OBJECTIVE: VITAL SIGNS: Stable. HEART: S1, S2 heard normally. Pericardial rub is evident. LUNGS: Reveal fair air entry. ABDOMEN: Unchanged. LOWER EXTREMITIES: Unchanged. IMPRESSION: 1. Acute pericarditis with effusion. 2. No evidence of any significant coronary artery disease. 3. History of elevated D-dimer by history. RECOMMENDATIONS: Addition of Dilaudid for pain control, indomethacin, colchicine, and also Pepcid. Based on clinical course, we will make further recommendations. MMODL / IJN: [id number] /
[2022-03-19 06:25] LABS: Basophils % (A) 1 %; Eosinophils # (A) 0.6 k/uL (0-0.7); Eosinophils % (A) 13 %; HCT 29.4 % (39.0-53.0); HGB 9.7 gm/dL (13.0-17.5); Hypochromasia Slight; Lymphocytes # (A) 0.6 k/uL (1.0-4.8); Lymphocytes % (A) 15 %; MCH 30.9 pg (25.0-35.0); MCHC 32.9 g/dL (31.0-37.0); MCV 93.9 fL (80.0-100.0); Mean Platelet Volume 7.7; Monocytes # (A) 0.1 k/uL (0-1.0); Monocytes % (A) 2 %; Neutrophils # (A) 2.8 k/uL (1.3-7.7); Neutrophils % (A) 68 %; Platelet Count 533 k/uL (150-450); RBC 3.13 m/uL (4.30-5.90); RDW 14.1 % (11.5-15.5); WBC 4.1 k/uL (3.8-10.6)
[2022-03-19 06:51] LABS: African American GFR (CKD) >90 (>60 ml/min/1.73 sqM); Anion Gap 4 mmol/L; Blood Urea Nitrogen 22 mg/dL (9-20); Calcium 8.3 mg/dL (8.4-10.2); Carbon Dioxide 23 mmol/L (22-30); Chloride 106 mmol/L (98-107); Glucose 100 mg/dL (74-99); Non-African American GFR(CKD) 82 (>60 ml/min/1.73 sqM); Potassium 4.6 mmol/L (3.5-5.1); Sodium 133 mmol/L (137-145)
[2022-03-19] MEDS ORDERED: IBUPROFEN 400 MG TAB PO PRN (07:09)
--- NOTE | 2022-03-19 08:10 | P.PN ---
Subjective Progress Note Date: 03/18/22 Patient is a 66-year-old male with a known history of rheumatoid arthritis, hearing disorder/deafness, hyperlipidemia, idiopathic thrombocytopenia plus postsplenectomy, history of Lyme's disease, history of ulcerative colitis status post surgery and/ileostomy/reversal and lung nodule on follow-up with his doctor at [facility] presents to ER with complaints of chest pain. Patient states that he woke up from sleep last night around 2 AM with crushing chest pain left retrosternal region. Patient has been having chest pain for the past 1 week and worsened last night as well as shortness of breath which made him to come to ER. Patient otherwise denies any radiation of the chest pain. No associated nausea or vomiting. Patient otherwise felt very cold and clammy.. Pain gets worse with deep breathing. Denies any leg swelling. Denies any recent illnesses. Patient states that she was found [place] [address] and is follow with his oncologist at [facility],. Patient also states that he was found to have lung nodule and was also seen by water rights specialist. Patient was previously admitted to the hospital intergrade 2021 due to exertional dyspnea and postcode inflammatory changes. Patient was seen by hematology due to eosinophilia at the time and was also seen by cardiology. Patient had VQ scan done showed low probability for PE. Chest CTA showed no PE. Peripherally predominant reticular groundglass opacities in the craniocaudal g radient as well as diffuse bronchial wall thickening. Numerous enlarged mediastinal and hilar lymph nodes and prominent but normal enlarged axillary lymph nodes as well as prominent upper abdominal lymph nodes. Findings are favored to relate to inflammatory/infectious process. Wall thickening of the distal esophagus. Correlate with direct visualization. Patient had negative stress test at that time. On admission chest x-ray showed mild congestive heart failure with pleural fluid. Abnormalities appear new compared to old exam. EKG showed acute ST elevation in inferior leads. Patient underwent cardiac catheterization showed significant disease involving the diagonal branch and area of leg rupture involving proximal RCA. Patient does not need intervention at this time as per cardiology. WBC 13.0 hemoglobin 11.5 and platelets 612 Sodium 133 potassium 4.7 chloride 101 BUN 28 and creatinine 1.46 Magnesium 1.6 on admission. Troponin 0.012, 0.024 and 0.041 and 0.037 LDL 103.1 03/18/2022 Patient is currently in the MICU. Chest pain is better today. Patient was able to take deep breath without much pleuritic chest pain. Patient is being continued on colchicine and indomethacin was added. Cardiology is on board. No complaints of nausea or vomiting. No headache or dizziness or lightheadedness. Patient has been afebrile. No cough or sputum production Laboratory data showed WBC 6.2 hemoglobin 9.4 and platelets 517 sodium 131 potassium 4.3 chloride 104 bicarb is 23 BUN 22 and creatinine 0.97 and calcium 8.1. CRP 21.2. current medications reviewed. Objective - Vital Signs Vital signs: Vital Signs Temp 98.1 F 03/18/22 08:00 Pulse 92 03/18/22 11:00 Resp 33 H 03/18/22 11:00 BP 118/69 03/18/22 11:00 Pulse Ox 94 L 03/18/22 11:00 FiO2 Intake & Output 03/17/22 03/18/22 03/18/22 18:59 06:59 18:59 Intake Total 1975 635 300 Output Total 700 200 Balance 1275 435 300 Weight 83.6 kg Intake: IV 260 100 Magnesium Sulfate-D5w Pmx 200 1 gm In Dextrose/Water 1 100ml.bag @ 100 mls/hr IVPB Q1H [facility] Rx#: [id number] Sodium Chloride 0.9% 1, 60 100 000 ml @ 125 mls/hr IV . Q8H [facility] Rx#:[id number] Intake, IV Titration 1375 375 Amount Sodium Chloride 0.9% 1, 1375 375 000 ml @ 125 mls/hr IV . Q8H [facility] Rx#:[id number] Oral 600 200 Output: Urine 600 200 Stool 100 Other: Voiding Method Urinal Urinal Urinal # Voids 0 0 # Bowel Movements 1 - Exam PHYSICAL EXAMINATION: Patient is lying in the bed comfortably, no acute distress, awake alert and oriented.. HEENT: Normocephalic. Neck is supple. Pupils reactive. Nostrils clear. Oral cavity is moist. Neck reveals no JVD, carotid bruits, or thyromegaly. CHEST EXAMINATION: Trachea is central. Symmetrical expansion. Lung rendon clear to auscultation and percussion. CARDIAC: Normal S1, S2 with no gallops. No murmurs ABDOMEN: Soft. Bowel sounds present. Nontender. No organomegaly. No abdominal bruits. Extremities: reveal no edema. No clubbing or cyanosis Neurologically awake, alert, oriented x3 with well-coordinated movements. No f ocal deficits noted Skin: No rash or skin lesions. Psychiatric: Coperative. Nonsuicidal, Musculoskeletal: No joint swelling or deformity. Normal range of motion. - Labs CBC & Chem 7: 03/19/22 05:50 03/19/22 05:50 Labs: Abnormal Lab Results - Last 24 Hours (Table) 03/17/22 03/18/22 03/18/22 Range/Units 16:33 05:28 05:28 RBC 2.93 L (4.30-5.90) m/uL Hgb 9.4 L D (13.0-17.5) gm/dL Hct 27.6 L (39.0-53.0) % Plt Count 517 H (150-450) k/uL Sodium 131 L (137-145) mmol/L BUN 22 H (9-20) mg/dL Glucose 121 H (74-99) mg/dL Calcium 8.1 L (8.4-10.2) mg/dL Troponin I 0.037 H* (0.000-0.034) ng/mL C-Reactive Protein 21.2 H (<1.0) mg/dL Assessment and Plan Assessment: Chest pain with ST elevation in the inferior leads. Status post cardiac catheterization and suspected plaque rupture in the RCA. No intervention was required as per cardiology. Possible acute pericarditis with pleuritic chest pain History of COVID-19 infection in April 2021 and was admitted with post-COVID inflammatory changes in the lung. Significantly elevated D-dimer level and is on follow-up with his oncologist at [facility]. Patient had work-up including CT, PET scan and seen by ID. Supposed to get follow-up CT before next follow-up. GERD Hearing disorder/deafness Hyperemia Rheumatoid arthritis History of Lyme's disease History of ulcerative colitis status post ileostomy reversal History of idiopathic thrombocytopenia status post penectomy DVT prophylaxis Heparin subcu DVT prophylaxis Pepcid twice daily Plan: Patient is status post cardiac catheterization and no intervention was required as per cardiology. Continue with aspirin and statins and Plavix and metoprolol. Continue with IV hydration. Patient was started colchicine. Added indomethacin.Cardiology is on board. Follow-up CRP level. GI and DVT prophylaxis. Discussed with the patient at bedside in detail. Continue to follow closely. Time with Patient: Greater than 30
[2022-03-19] MEDS: SODIUM CHLORIDE 0.9% 1,000 ML IV SCH ×3 (08:21→20:41)
[2022-03-19] MEDS: ASPIRIN 81 MG PO SCH (08:52)
[2022-03-19] MEDS: COLCHICINE 0.6 MG EACH PO SCH ×2 (08:52→20:34)
[2022-03-19] MEDS: CYANOCOBALAMIN 500 MCG TAB PO SCH (08:52)
[2022-03-19] MEDS: INDOMETHACIN 25 MG CAP PO SCH ×3 (08:52→20:34)
[2022-03-19] MEDS: CHOLECALCIFEROL 125 MCG (5000 IU) TABLET PO SCH (08:53)
[2022-03-19] MEDS: FAMOTIDINE 20 MG TAB PO SCH ×2 (08:53→20:35)
[2022-03-19] MEDS: predniSONE 5 MG TAB PO SCH (08:53)
[2022-03-19] MEDS: ATORVASTATIN 40 MG TAB PO SCH (08:53)
[2022-03-19] MEDS: HEPARIN SODIUM,PORCINE/PF 5,000 UNIT/0.5 ML SYRINGE SQ SCH ×2 (08:53→20:35)
[2022-03-19] MEDS: METOPROLOL TARTRATE 25 MG TAB PO SCH ×2 (08:53→20:35)
[2022-03-19 11:15] LABS: % Iron Saturation 9.33 (15.00-50.00); Iron 14 ug/dL (65-175); Total Iron Binding Capacity 151 ug/dL (228-460)
[2022-03-19] MEDS: HYDROmorphone 0.5 MG/0.5 ML SYRINGE IVP PRN ×2 (11:43→20:41)
--- NOTE | 2022-03-19 12:06 | XR ---
EXAMINATION TYPE: XR chest 1V portable DATE OF EXAM: 03/19/2022 COMPARISON: 03/17/2022 INDICATION: Short of breath TECHNIQUE: Single frontal view of the chest is obtained. FINDINGS: The heart size is enlarged. The pulmonary vasculature is normal. Bibasilar infiltrates are present, greater on the right. Small right pleural effusion is present. Min imal left pleural effusion may be present. No pneumothorax is evident. IMPRESSION: 1. Small bilateral pleural effusions. 2. Cardiomegaly
[2022-03-19] MEDS ORDERED: HYDROcodone/APAP 5-325MG 1 EACH TAB PO PRN (12:14)
[2022-03-19] MEDS ORDERED: HYDROcodone/APAP 7.5-325MG 1 EACH TAB PO PRN (12:14)
--- NOTE | 2022-03-19 16:04 | PN ---
PROGRESS NOTE Mr. Florez is in sinus rhythm. His echo revealed pericardial effusion. His pain in the chest has improved almost completely without need for Dilaudid. He is on colchicine, indomethacin, Pepcid, and also with Dilaudid as needed. He is doing much better. Room air oxygen saturation is 95%. We will increase activity, move him to telemetry, and do a followup echo tomorrow to assess the size of his pericardial effusion, and based on clinical course, I will make further recommendations. KIM / HANNA: [id number] /
--- NOTE | 2022-03-19 17:33 | P.PN ---
Subjective Progress Note Date: 03/19/22 Patient is a 66-year-old male with rheumatoid arthritis, dyslipidemia, idiopathic thrombocytopenia status post splenectomy, ulcerative colitis, and multiple other comorbid conditions he typically follows up at [facility] and presented with chest pain. In the ER he was diagnosed with an acute ST segment elevated myocardial infarction. He underwent cardiac cath which demonstrated severe disease involving the diagonal branch and proximal RCA was determined that he did not need intervention at this time. Initial laboratory analysis showed white blood cell count of 13, hemoglobin 11.5, platelets 612, sodium 133, BUN 28, creatinine 1.46 and was otherwise unremarkable. Initial troponin was negative. On evaluation by cardiology who felt he was consistent with acute pericarditis. Echocardiogram demonstrated moderate to large pericardial effusion with no evidence of tamponade ejection fraction 55-60%. 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 He was also seen by rheumatology at [facility] for possible PMR, Myositits, ect due to diffuse body pains, he reports negative EMG. He has a known abnormality on right chest, report positive CT PET with plan for biopsy at [facility]. Patient seen and examined at bedside.He continues to have chest pain and shortness of breath. The medications are helping. We discussed that he have acute pericarditis with large pericardial effusion. He adamantly denies any preceding upper respiratory tract infection. He has no formal diagnosis of any rheumatologic disease. He does not believe he's had pericarditis before. General: non toxic, mild distress due to pain, appears at stated age Derm: warm, dry Head: atraumatic, normocephalic, symmetric Eyes: EOMI, no lid lag, anicteric sclera Mouth: no lip lesion, mucus membranes moist Cardiovascular: S1S2 reg, no murmur, positive posterior tibial pulse bilateral, Lungs: Decreased bs bilateral, no rhonchi, no rales , no accessory muscle use Abdominal: soft, nontender to palpation, no guarding, no appreciable organomegaly Ext: no gross muscle atrophy, no edema, no contractures Neuro: CN II-XI grossly intact, no focal neuro deficits Psych: Alert, oriented, appropriate affect Assessment/plan: Chest pain with ST segment elevation in the inferior leads status post cardiac cath with suspected plaque) the RCA not requiring intervention Acute pericarditis with large pericardial effusion -Cardiology recommendations appreciated. Patient was started on colchicine, metoprolol. -Continue with aspirin, Lipitor, indomethacin -Patient is chronically on prednisone -Follow blood pressures -COVID, Flu, RSV negative - Cardiology has consulted ID - Obtain records for Frank regarding rheumatologic and oncology work up that has been completed. Anemia, thrombocytosis -Anemia is mild -Patient is following with [facility] oncology -Continue to follow CBC Hyponatremia, mild, not clinically significant -Follow BMP Significantly elevated D-dimer level and is on follow-up with his oncologist at [facility]. Patient had work-up including CT, PET scan and seen by ID. Supposed to get follow-up CT before next follow-up. GERD Hearing disorder/deafness Rheumatoid arthritis History of Lyme's disease History of ulcerative colitis status post ileostomy reversal History of idiopathic thrombocytopenia status post penectomy DVT prophylaxis: Heparin Discussed with: patient, nursing Anticipated discharge: pending clinical course Anticipated discharge place: pending clinical course A total of 35 minutes was spent on the care of this complex patient more than 50% of the time was spent in counseling and care coordination. Objective - Vital Signs Vital signs: Vital Signs Temp 98 F 03/19/22 04:00 Pulse 73 03/19/22 06:00 Resp 16 03/19/22 06:00 BP 114/70 03/19/22 06:00 Pulse Ox 98 03/19/22 06:00 FiO2 Intake & Output 03/18/22 03/19/22 03/19/22 18:59 06:59 18:59 Intake Total 840 260 Output Total 500 450 Balance 340 -190 Weight 80.739 kg Intake: IV 240 260 Sodium Chloride 0.9% 1, 240 260 000 ml @ 125 mls/hr IV . Q8H [facility] Rx#:[id number] Oral 600 Output: Urine 500 450 Other: Voiding Method Urinal Urinal # Voids 0 1 - Labs CBC & Chem 7: 03/19/22 05:50 03/19/22 05:50 Labs: Abnormal Lab Results - Last 24 Hours (Table) 03/19/22 03/19/22 Range/Units 05:50 05:50 RBC 3.13 L (4.30-5.90) m/uL Hgb 9.7 L (13.0-17.5) gm/dL Hct 29.4 L (39.0-53.0) % Plt Count 533 H (150-450) k/uL Lymphocytes # 0.6 L (1.0-4.8) k/uL Sodium 133 L (137-145) mmol/L BUN 22 H (9-20) mg/dL Glucose 100 H (74-99) mg/dL Calcium 8.3 L (8.4-10.2) mg/dL
--- NOTE | 2022-03-19 18:06 | CA ---
Transthoracic Echo Report Name: Emil Florez Age: 66 Gender: M : 1955 Exam Date: 03/19/2022 10:03 Exam Location: [place] Echo Ht (in): 70 Wt (lb): 178 Ordering Physician: Antoinette Lira MD ([id number]) Attending/Referring Phys: Auto Appraiser Sharita Her RDCS Procedure CPT: Indications: Assess Pericar eff,LV FX Cardiac Hx: Technical Quality: Fair Contrast 1: Total Dose (mL): Contrast 2: Total Dose (mL): MEASUREMENTS (Male / Female) Normal Values FINDINGS Left Ventricle Limited echo. Normal left ventricular systolic function with no obvious regional wall motion abnormalities. Left ventricular ejection fraction is estimated at 55-60 %. Right Ventricle Right Atrium Left Atrium Mitral Valve Aortic Valve Tricuspid Valve Pulmonic Valve Pericardium Moderate pericardial effusion. No tamponade charactaristics Aorta CONCLUSIONS 1. Normal ventricle size and systolic function 2. Moderate pericardial effusion Limited echo. Previewed by: Dr. Twin Gonzalez MD (Electronically Signed) Final Date: 19 March 2022 18:05
--- NOTE | 2022-03-19 21:06 | P.CONS ---
History of Present Illness - Reason for Consult Consult date: 03/19/22 Viral pericarditis Requesting physician: Antoinette Lira - Chief Complaint Chest pain x one day - History of Present Illness patient is a 66-year-old male with multiple comorbidities including rheumatoid arthritis idiopathic thrombocytopenia postsplenectomy ulcerative colitis status post ileostomy presented to the hospital 03/17/2022 for evaluation of chest pain patient has been describing the pain to be sharp in nature across the upper chest area intensity is almost 10 out of 10 no significant radiation but associated shortness of breath denies having any nausea no vomiting no abdominal pain or any diarrhea patient on presentation to the hospital was afebrile he did have low-grade fever 100.2 around midnight yesterday no fever since then he did have elevated white count of 13,000 on admission white count subsequent normalized, kidney function has been normal liver enzymes are normal influenza and bell PCR was negative patient did have a chest x-ray mild congestive heart failure with pleural fluid patient did have a cardiac cath with evidence of coronary disease but no need for intervention echocardiogram did show some pericardial effusion but no tamponade phenomena patient has been diagnosed with viral pericarditis infectious disease was c onsulted for further management, patient has been started on colchicine and reporting improvement in his chest pain since admission to the hospital Review of Systems Positive point has been mentioned in the HPI rest of the systems are negative Past Medical History Past Medical History: Blood Disorder, GERD/Reflux, Hearing Disorder / Deafness, Hyperlipidemia, Rheumatoid Arthritis (RA) Additional Past Medical History / Comment(s): Dx idiopathic thrombocytopenia, no further problems since spleen removed, hx. Lyme disease, Right ear is worse. Ulcerative colitis-surgery & has ileostomy, frequent burning in stomach, occasional dysphagia History of Any Multi-Drug Resistant Organisms: None Reported Past Surgical History: Bowel Resection, Orthopedic Surgery Additional Past Surgical History / Comment(s): BONE MARROW BX 12/12/13. Hx iliostomy age 15 for ulcerative colitis, Hx carpal tunnel release bilat., repair deviated nasal septum, LAPAROSCOPIC SPLENECTOMY; Nose surgery repair for broken nose. Mass on right lung follow up at [facility] possible carcinoma. Past Anesthesia/Blood Transfusion Reactions: No Reported Reaction Past Psychological History: No Psychological Hx Reported Smoking Status: Never smoker Past Alcohol Use History: Occasional Past Drug Use History: None Reported - Past Family History Mother Family Medical History: Cancer Father Family Medical History: Cancer Medications and Allergies Home Medications Medication Instructions Recorded Confirmed Type Cholecalciferol [Vitamin D3 (125 125 mcg PO DAILY 04/27/21 03/17/22 History Mcg = 5000 Iu)] Cyanocobalamin (Vitamin B-12) 1,000 mcg PO DAILY 04/27/21 03/17/22 History [Vitamin B-12] Ibuprofen [Motrin] 400 mg PO Q6HR PRN 03/17/22 03/17/22 History predniSONE 5 mg PO DAILY 03/17/22 03/17/22 History Allergies Allergy/AdvReac Type Severity Reaction Status Date / Time No Known Allergies Allergy Verified 03/17/22 07:47 Physical Exam Vitals: Vital Signs Temp Pulse Resp BP Pulse Ox 03/19/22 11:00 76 25 H 120/76 94 L 03/19/22 10:00 75 13 123/71 03/19/22 09:00 82 8 L 140/96 03/19/22 08:00 98.2 F 81 25 H 131/74 94 L 03/19/22 06:00 73 16 114/70 98 03/19/22 05:00 77 15 114/70 94 L 03/19/22 04:00 98 F 68 15 103/64 99 03/19/22 03:00 64 15 107/67 98 03/19/22 02:00 76 15 102/63 91 L 03/19/22 01:00 66 18 109/70 94 L 03/19/22 00:00 98.4 F 73 25 H 111/62 96 03/18/22 23:00 67 18 120/68 98 03/18/22 22:00 73 12 105/61 98 03/18/22 21:00 71 19 134/75 97 03/18/22 20:00 98.3 F 74 12 112/61 94 L 03/18/22 19:00 77 14 119/85 100 03/18/22 18:00 77 26 H 124/76 97 03/18/22 17:00 98.8 F 80 24 109/71 93 L 03/18/22 16:00 73 13 99/58 98 03/18/22 15:00 71 25 H 105/62 96 03/18/22 14:00 73 29 H 114/98 96 03/18/22 13:00 79 20 115/65 96 03/18/22 12:00 98.9 F 84 10 L 112/78 96 Intake and Output 03/18/22 03/19/22 03/19/22 22:59 06:59 14:59 Intake Total 360 180 0 Output Total 200 450 Balance 160 -270 0 Intake: IV 160 180 0 Sodium Chloride 0.9% 1, 160 180 0 000 ml @ 125 mls/hr IV . Q8H [facility] Rx#:[id number] Oral 200 Output: Urine 200 450 Other: Voiding Method Urinal Urinal Urinal # Voids 1 Weight 80.739 kg GENERAL DESCRIPTION: Elderly male lying in bed, no distress. No tachypnea or accessory muscle of respiration use. HEENT: Shows Pallor , no scleral icterus. Oral mucous membrane is dry. No pharyngeal erythema or thrush NECK: Trachea central, no thyromegaly. LUNGS: Unlabored breathing. Clear to auscultation anteriorly. No wheeze or crackle. HEART: S1, S2, regular rate and rhythm. No loud murmur ABDOMEN: Soft, no tenderness , guarding or rigidity, no organomegaly EXTREMITIES: No edema of feet. SKIN: No rash, no masses palpable. NEUROLOGICAL: The patient is awake, alert, oriented x3, mood and affect normal. Results CBC & Chem 7: 03/19/22 05:50 03/19/22 05:50 Labs: Abnormal Lab Results - Last 24 Hours (Table) 03/19/22 03/19/22 03/19/22 Range/Units 05:50 05:50 07:56 RBC 3.13 L (4.30-5.90) m/uL Hgb 9.7 L (13.0-17.5) gm/dL Hct 29.4 L (39.0-53.0) % Plt Count 533 H (150-450) k/uL Lymphocytes # 0.6 L (1.0-4.8) k/uL D-Dimer 12.78 H (<0.60) mg/L FEU Sodium 133 L (137-145) mmol/L BUN 22 H (9-20) mg/dL Glucose 100 H (74-99) mg/dL Calcium 8.3 L (8.4-10.2) mg/dL Iron 14 L (65-175) ug/dL TIBC 151 L (228-460) ug/dL % Saturation 9.33 L (15.00-50.00) Transferrin 108.0 L (204.0-354.0) mg/dL Assessment and Plan Plan: 1patient presented to hospital with chest pain sharp did have a low-grade fever in this patient with evidence of pericardial effusion concerning for possible pericarditis questionable viral versus rheumatological etiology in this patient who do have a history of rheumatoid arthritis and also ulcerative colitis status post ileostomy. 2patient report improvement in his symptomatology with colchicine which will be continued. 3no need for any antiviral or antibiotics at this point. We will follow on clinical condition and cultures to further adjust medication i f needed Thank you for this consultation we will follow the patient along with you Time with Patient: Greater than 30
[2022-03-20 08:01] LABS: HCT 30.2 % (39.0-53.0); HGB 9.9 gm/dL (13.0-17.5); MCH 30.6 pg (25.0-35.0); MCHC 32.8 g/dL (31.0-37.0); MCV 93.2 fL (80.0-100.0); Platelet Count 611 k/uL (150-450); RBC 3.24 m/uL (4.30-5.90); RDW 14.6 % (11.5-15.5); WBC 5.2 k/uL (3.8-10.6)
[2022-03-20 08:25] LABS: Calcium 8.3 mg/dL (8.4-10.2); Magnesium 1.9 mg/dL (1.6-2.3); Potassium 4.4 mmol/L (3.5-5.1)
[2022-03-20] MEDS: ASPIRIN 81 MG PO SCH (09:18)
[2022-03-20] MEDS: CYANOCOBALAMIN 500 MCG TAB PO SCH (09:18)
[2022-03-20] MEDS: ATORVASTATIN 40 MG TAB PO SCH (09:18)
[2022-03-20] MEDS: INDOMETHACIN 25 MG CAP PO SCH ×3 (09:18→20:34)
[2022-03-20] MEDS: METOPROLOL TARTRATE 25 MG TAB PO SCH ×2 (09:18→20:33)
[2022-03-20] MEDS: COLCHICINE 0.6 MG EACH PO SCH ×2 (09:18→20:33)
[2022-03-20] MEDS: predniSONE 5 MG TAB PO SCH (09:18)
[2022-03-20] MEDS: FAMOTIDINE 20 MG TAB PO SCH ×2 (09:18→20:33)
[2022-03-20] MEDS: CHOLECALCIFEROL 125 MCG (5000 IU) TABLET PO SCH (09:18)
[2022-03-20] MEDS: HEPARIN SODIUM,PORCINE/PF 5,000 UNIT/0.5 ML SYRINGE SQ SCH ×2 (09:26→20:33)
[2022-03-20] MEDS: SODIUM CHLORIDE 0.9% 1,000 ML IV SCH ×3 (10:25→20:37)
--- NOTE | 2022-03-20 15:11 | P.PN ---
Subjective Progress Note Date: 03/20/22 Principal diagnosis: Pericarditis patient is a 66-year-old male with multiple comorbidities including rheumatoid arthritis idiopathic thrombocytopenia postsplenectomy ulcerative colitis status post ileostomy presented to the hospital 03/17/2022 for evaluation of chest pain patient has been describing the pain to be sharp in nature across the upper chest area, patient did have a no grade fever 100.2 and echocardiogram shows evidence of pericardial effusion suspicious of pericarditis possible viral. on today's evaluation that is 03/20/2022, the patient denies having any fever or any chills, the patient has been slightly decreased intensity syncopal or shortness of breath on exertion. Occasional dry cough no nausea no vomiting no abdominal pain no diarrhea Objective - Vital Signs Vital signs: Vital Signs Temp 97.9 F 03/20/22 12:07 Pulse 72 03/20/22 12:07 Resp 18 03/20/22 12:07 BP 120/67 03/20/22 12:07 Pulse Ox 96 03/20/22 12:07 FiO2 Intake & Output 03/19/22 03/20/22 03/20/22 18:59 06:59 18:59 Intake Total 540 780 240 Output Total 0 Balance 540 780 240 Weight 80.5 kg Intake: IV 0 Sodium Chloride 0.9% 1, 0 000 ml @ 125 mls/hr IV . Q8H [facility] Rx#:[id number] Oral 540 780 240 Output: Urine 0 Other: Voiding Method Urinal Urinal Urinal # Voids 1 1 # Bowel Movements 0 - Exam GENERAL DESCRIPTION: An elderly male lying in bed in no distress RESPIRATORY SYSTEM: Unlabored breathing , decreased breath sounds at bases HEART: S1 S2 regular rate and rhythm , ABDOMEN: Soft , no tenderness EXTREMITIES: No edema feet - Labs CBC & Chem 7: 03/20/22 06:55 03/20/22 06:55 Labs: Abnormal Lab Results - Last 24 Hours (Table) 03/20/22 03/20/22 Range/Units 06:55 06:55 RBC 3.24 L (4.30-5.90) m/uL Hgb 9.9 L (13.0-17.5) gm/dL Hct 30.2 L (39.0-53.0) % Plt Count 611 H (150-450) k/uL Sodium 135 L (137-145) mmol/L BUN 24 H (9-20) mg/dL Calcium 8.3 L (8.4-10.2) mg/dL Assessment and Plan (1) Pericarditis Current Visit: Yes Status: Acute Code(s): I31.9 - DISEASE OF PERICARDIUM, UNSPECIFIED SNOMED Code(s): 4178199 Plan: 1patient presented to hospital with chest pain sharp did have a low-grade fever in this patient with evidence of pericardial effusion concerning for possible pericarditis questionable viral versus rheumatological etiology in this patient who do have a history of rheumatoid arthritis and also ulcerative colitis status post ileostomy. 2patient seemed to be slowly clinically improving with colchicine which will be continued and there is no need for any antiviral or antibiotics at this point.
[2022-03-20 16:34] VITALS: RESP 16
--- NOTE | 2022-03-20 17:25 | CA ---
Transthoracic Echo Report Name: Emil Florez Age: 66 Gender: M : 1955 Exam Date: 03/20/2022 15:16 Exam Location: [place] [facility] Ht (in): Wt (lb): Ordering Physician: Antoinette Lira MD ([id number]) Attending/Referring Phys: Dependency Case Manager Sharita Her RDCS Procedure CPT: Indications: Compare pericardial sac Cardiac Hx: Technical Quality: Fair Contrast 1: Total Dose (mL): Contrast 2: Total Dose (mL): MEASUREMENTS (Male / Female) Normal Values FINDINGS Left Ventricle Limited study. Normal left ventricular systolic function with no obvious regional wall motion abnormalities. Left ventricular ejection fraction is estimated at 55-60 %. Right Ventricle Right Atrium Left Atrium Mitral Valve Aortic Valve Tricuspid Valve Pulmonic Valve Pericardium Doppler findings does not suggest a hemodynamically significant pericardial effusion. No Tamponade, mild to moderate pericardial effusion size with some improvement when compared to previous studies. Aorta CONCLUSIONS 1. Normal ventricle size and systolic function 2. [id number] pericardial effusion with some improvement compared with prior study Previewed by: Dr. Twin Gonzalez MD (Electronically Signed) Final Date: 20 March 2022 17:24
[2022-03-20] MEDS: HYDROmorphone 0.5 MG/0.5 ML SYRINGE IVP PRN (19:25)
--- NOTE | 2022-03-20 19:52 | PN ---
PROGRESS NOTE SUBJECTIVE: Mr. Florez came in with pericarditis. He had an echocardiogram on the , which revealed same moderate effusion. No significant change. He has small pleural effusion. He feels better with a combination of indomethacin and colchicine. He is actually doing better. Plan is to continue current medications, increase activity, place a Hep-Lock, and do another repeat echo tomorrow, and if the repeat echo reveals no change, he can be discharged and followed up by Dr. Gr. OBJECTIVE: VITAL SIGNS: Stable. HEART: S1 and S2 heard normally. Rub is not as much audible. LUNGS: Reveal fair air entry. ABDOMEN: Unchanged. LOWER EXTREMITIES: Unchanged. ASSESSMENT AND PLAN: This gentleman has rheumatoid arthritis and ulcerative colitis with ileostomy. He may have other autoimmune-type disorders as well. He has had elevated D-dimer of over 15,000 and had further workup at [facility], which was not significant for any clear-cut entity. Cardiac-melendrez, I believe we are dealing with pericarditis, which could be viral or related to rheumatoid arthritis. Either case, no tamponade will fall. Continue to follow closely. MMODL / IJN: [id number] /
--- NOTE | 2022-03-20 20:06 | P.PN ---
Subjective Progress Note Date: 03/20/22 Patient is a 66-year-old male with rheumatoid arthritis, dyslipidemia, idiopathic thrombocytopenia status post splenectomy, ulcerative colitis, and multiple other comorbid conditions he typically follows up at [facility] and presented with chest pain. In the ER he was diagnosed with an acute ST segment elevated myocardial infarction. He underwent cardiac cath which demonstrated severe disease involving the diagonal branch and proximal RCA was determined that he did not need intervention at this time. Initial laboratory analysis showed white blood cell count of 13, hemoglobin 11.5, platelets 612, sodium 133, BUN 28, creatinine 1.46 and was otherwise unremarkable. Initial troponin was negative. On evaluation by cardiology who felt he was consistent with acute pericarditis. Echocardiogram demonstrated moderate to large pericardial effusion with no evidence of tamponade ejection fraction 55-60%. 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 He was also seen by rheumatology at [facility] for possible PMR, Myositits, ect due to diffuse body pains, he reports negative EMG. He has a known abnormality on right chest, report positive CT PET with plan for biopsy at [facility]. Patient seen and examined at bedside. Having some SOB still and chest pain with movement and deep inspiration. Again discussed that etiology could be viral, rheumatologic, or oncologic. General: non toxic, mild distress due to pain, appears at stated age Derm: warm, dry Head: atraumatic, normocephalic, symmetric Eyes: EOMI, no lid lag, anicteric sclera Mouth: no lip lesion, mucus membranes moist Cardiovascular: S1S2 reg, no murmur, positive posterior tibial pulse bilateral, Lungs: Decreased bs bilateral, no rhonchi, no rales , no accessory muscle use Abdominal: soft, nontender to palpation, no guarding, no appreciable organomegaly Ext: no gross muscle atrophy, no edema, no contractures Neuro: CN II-XI grossly intact, no focal neuro deficits Psych: Alert, oriented, appropriate affect Assessment/plan: Chest pain with ST segment elevation in the inferior leads status post cardiac cath with suspected plaque) the RCA not requiring intervention Acute pericarditis with large pericardial effusion -Cardiology recommendations appreciated. Patient was started on colchicine, metoprolol. Improvement in pericardial effusion -Continue with aspirin, Lipitor, indomethacin -Patient is chronically on prednisone -Follow blood pressures -COVID, Flu, RSV negative - ID recs appreciated no need for antibiotics or antivirals - Await records for Daniel and Zahra regarding rheumatologic and oncology work up that has been completed. - check AMMY and RF - will need outpatient follow-up with Rheumatology and oncology Anemia, thrombocytosis -Anemia is mild -Patient is following with [facility] oncology -Continue to follow CBC Hyponatremia, mild, not clinically significant -Follow BMP Significantly elevated D-dimer level and is on follow-up with his oncologist at [facility]. Patient had work-up including CT, PET scan and seen by ID. Supposed to get follow-up CT before next follow-up. GERD Hearing disorder/deafness Rheumatoid arthritis History of Lyme's disease History of ulcerative colitis status post ileostomy reversal History of idiopathic thrombocytopenia status post splenectomy DVT prophylaxis: Heparin Discussed with: patient, nursing Anticipated discharge: pending clinical course Anticipated discharge place: pending clinical course A total of 35 minutes was spent on the care of this complex patient more than 50% of the time was spent in counseling and care coordination. Objective - Vital Signs Vital signs: Vital Signs Temp 98.1 F 03/20/22 19:52 Pulse 69 03/20/22 19:52 Resp 16 03/20/22 19:52 BP 147/71 03/20/22 19:52 Pulse Ox 97 03/20/22 19:52 FiO2 Intake & Output 03/20/22 03/20/22 03/21/22 06:59 18:59 06:59 Intake Total 780 600 Balance 780 600 Weight 80.5 kg Intake: Oral 780 600 Other: Voiding Method Urinal Urinal # Voids 1 0 2 - Labs CBC & Chem 7: 03/20/22 06:55 03/20/22 06:55 Labs: Abnormal Lab Results - Last 24 Hours (Table) 03/20/22 03/20/22 Range/Units 06:55 06:55 RBC 3.24 L (4.30-5.90) m/uL Hgb 9.9 L (13.0-17.5) gm/dL Hct 30.2 L (39.0-53.0) % Plt Count 611 H (150-450) k/uL Sodium 135 L (137-145) mmol/L BUN 24 H (9-20) mg/dL Calcium 8.3 L (8.4-10.2) mg/dL
[2022-03-21] MEDS: SODIUM CHLORIDE 0.9% 1,000 ML IV SCH (04:17)
[2022-03-21] MEDS: HYDROmorphone 0.5 MG/0.5 ML SYRINGE IVP PRN (07:02)
--- NOTE | 2022-03-21 07:13 | P.PN ---
Subjective Progress Note Date: 03/21/22 Principal diagnosis: Pericarditis The patient is a 76-year-old gentleman who was admitted to the hospital with a chest discomfort and was diagnosed as pericarditis and pericardial effusion. March [id number] The patient was seen this morning. He stated that the chest discomfort has improved significantly. He remains hemodynamically stable at this point. Limited echocardiogram was performed yesterday and showed improvement in the pericardial effusion with overall preserved left ventricular systolic function. From a cardiac vascular standpoint of view, the patient potentially can be discharged home later on today. He is on colchicine Objective - Vital Signs Vital signs: Vital Signs Temp 98.1 F 03/21/22 04:30 Pulse 60 03/21/22 04:30 Resp 16 03/21/22 04:30 BP 108/66 03/21/22 04:30 Pulse Ox 99 03/21/22 04:30 FiO2 Intake & Output 03/20/22 03/21/22 03/21/22 18:59 06:59 18:59 Intake Total 600 240 Balance 600 240 Weight 75.5 kg Intake: Oral 600 240 Other: Voiding Method Urinal Urinal # Voids 0 0 - Constitutional General appearance: Present: no acute distress - Respiratory Respiratory: bilateral: CTA - Cardiovascular Rhythm: regular Heart sounds: normal: S1, S2 - Labs CBC & Chem 7: 03/20/22 06:55 03/20/22 06:55 Labs: Abnormal Lab Results - Last 24 Hours (Table) 03/20/22 03/20/22 03/20/22 Range/Units 06:55 06:55 06:55 RBC 3.24 L (4.30-5.90) m/uL Hgb 9.9 L (13.0-17.5) gm/dL Hct 30.2 L (39.0-53.0) % Plt Count 611 H (150-450) k/uL Sodium 135 L (137-145) mmol/L BUN 24 H (9-20) mg/dL Calcium 8.3 L (8.4-10.2) mg/dL Rheumatoid Factor 34 H (0-15) IU/mL Assessment and Plan Assessment: Assessment Pericarditis Pericardial effusion secondary to pericarditis Plan Continue the current medical regimen The patient can be discharged
[2022-03-21 08:19] LABS: HCT 33.5 % (39.0-53.0); HGB 11.2 gm/dL (13.0-17.5); Hypochromasia Slight; MCH 31.2 pg (25.0-35.0); MCHC 33.4 g/dL (31.0-37.0); MCV 93.4 fL (80.0-100.0); Mean Platelet Volume 7.8; Platelet Count 692 k/uL (150-450); RBC 3.58 m/uL (4.30-5.90); RDW 14.3 % (11.5-15.5)
[2022-03-21 08:28] LABS: African American GFR (CKD) >90 (>60 ml/min/1.73 sqM); Anion Gap 7 mmol/L; Blood Urea Nitrogen 26 mg/dL (9-20); Calcium 8.5 mg/dL (8.4-10.2); Carbon Dioxide 23 mmol/L (22-30); Chloride 109 mmol/L (98-107); Glucose 111 mg/dL (74-99); Non-African American GFR(CKD) 78 (>60 ml/min/1.73 sqM); Potassium 4.3 mmol/L (3.5-5.1); Sodium 139 mmol/L (137-145)
[2022-03-21] MEDS: METOPROLOL TARTRATE 25 MG TAB PO SCH (09:22)
[2022-03-21] MEDS: FAMOTIDINE 20 MG TAB PO SCH (09:22)
[2022-03-21] MEDS: predniSONE 5 MG TAB PO SCH (09:22)
[2022-03-21] MEDS: COLCHICINE 0.6 MG EACH PO SCH (09:22)
[2022-03-21] MEDS: CHOLECALCIFEROL 125 MCG (5000 IU) TABLET PO SCH (09:22)
[2022-03-21] MEDS: CYANOCOBALAMIN 500 MCG TAB PO SCH (09:22)
[2022-03-21] MEDS: ATORVASTATIN 40 MG TAB PO SCH (09:22)
[2022-03-21] MEDS: INDOMETHACIN 25 MG CAP PO SCH (09:22)
[2022-03-21] MEDS: ASPIRIN 81 MG PO SCH (09:22)
[2022-03-21] MEDS: HEPARIN SODIUM,PORCINE/PF 5,000 UNIT/0.5 ML SYRINGE SQ SCH (09:25)
[2022-03-21] MEDS ORDERED: BENZOCAINE/MENTHOL LOZENG 1 EACH LOZENGE MUCOUS MEM PRN (10:13)
[2022-03-21 13:46] VITALS: BP 124/78; PULSE 78; TEMP 97.9
--- NOTE | 2022-03-21 14:00 | P.PN ---
Subjective Progress Note Date: 03/21/22 Principal diagnosis: Pericarditis patient is a 66-year-old male with multiple comorbidities including rheumatoid arthritis idiopathic thrombocytopenia postsplenectomy ulcerative colitis status post ileostomy presented to the hospital 03/17/2022 for evaluation of chest pain patient has been describing the pain to be sharp in nature across the upper chest area, patient did have a no grade fever 100.2 and echocardiogram shows evidence of pericardial effusion suspicious of pericarditis possible viral. on today's evaluation that is 03/21/2022, the patient remains to be afebrile, the patient is breathing more comfortably on room air patient's chest pain has decreased in intensity no nausea no vomiting no abdominal pain no diarrhea, the patient did have echocardiogram repeated this morning we did showed decrease in the amount of pericardial fluid Objective - Vital Signs Vital signs: Vital Signs Temp 97.8 F 03/21/22 09:35 Pulse 76 03/21/22 09:35 Resp 16 03/21/22 09:35 BP 126/76 03/21/22 09:35 Pulse Ox 97 03/21/22 09:35 FiO2 Intake & Output 03/20/22 03/21/22 03/21/22 18:59 06:59 18:59 Intake Total 600 240 Balance 600 240 Weight 75.5 kg Intake: Oral 600 240 Other: Voiding Method Urinal Urinal Urinal # Voids 0 0 1 - Exam GENERAL DESCRIPTION: An elderly male lying in bed in no distress RESPIRATORY SYSTEM: Unlabored breathing , decreased breath sounds at bases HEART: S1 S2 regular rate and rhythm , ABDOMEN: Soft , no tenderness EXTREMITIES: No edema feet - Labs CBC & Chem 7: 03/21/22 07:55 03/21/22 07:55 Labs: Abnormal Lab Results - Last 24 Hours (Table) 03/20/22 03/21/22 03/21/22 Range/Units 06:55 07:55 07:55 RBC 3.58 L (4.30-5.90) m/uL Hgb 11.2 L (13.0-17.5) gm/dL Hct 33.5 L (39.0-53.0) % Plt Count 692 H (150-450) k/uL Chloride 109 H (98-107) mmol/L BUN 26 H (9-20) mg/dL Glucose 111 H (74-99) mg/dL Rheumatoid Factor 34 H (0-15) IU/mL Assessment and Plan (1) Pericarditis Status: Acute Code(s): I31.9 - DISEASE OF PERICARDIUM, UNSPECIFIED SNOMED Code(s): 4641106 Plan: 1patient presented to hospital with chest pain sharp did have a low-grade fever in this patient with evidence of pericardial effusion concerning for possible pericarditis questionable viral versus rheumatological etiology in this patient who do have a history of rheumatoid arthritis and also ulcerative colitis status post ileostomy. 2patient seemed to have shown clinical improvement and the patient echocardiogram also showed improvement he will continue with the colchicine and a close outpatient follow-up Time with Patient: Less than 30
--- NOTE | 2022-03-21 19:26 | P.DS ---
Providers Date of admission: 03/17/22 03:23 Expected date of discharge: 03/21/22 Attending physician: Soraida Benton DO Consults: 03/17/22 03:21 Consult Physician Routine Consulting Provider: [facility] Consult Reason/Comments: STEMI Do you want consulting provider notified?: Already Contacted 03/18/22 17:33 Consult Physician Routine Consulting Provider: Pedro Guerrero Consult Reason/Comments: viral pericarditis Do you want consulting provider notified?: Yes, Notify in am Primary care physician: Markie Verde [facility] Course: Discharge Diagnosis: Acute Pericarditis Pericardial effusion Chest pain with ST segment elevation in the inferior leads status post cardiac cath with suspected plaque the RCA not requiring intervention Anemia, thrombocytosis Hyponatremia, mild, not clinically significant Significantly elevated D-dimer level and is on follow-up with his oncologist at [facility]. Patient had work-up including CT, PET scan and seen by ID. Supposed to get follow-up CT before next follow-up. GERD Hearing disorder/deafness Rheumatoid arthritis History of Lyme's disease History of ulcerative colitis status post ileostomy reversal History of idiopathic thrombocytopenia status post splenectomy Hospital Course: Patient is a 66-year-old male with rheumatoid arthritis, dyslipidemia, idiopathic thrombocytopenia status post splenectomy, ulcerative colitis, and multiple other comorbid conditions he typically follows up at [facility] and presented with chest pain. In the ER he was diagnosed with an acute ST segment elevated myocardial infarction. He underwent cardiac cath which demonstrated severe disease involving the diagonal branch and proximal RCA was determined that he did not need intervention at this time. Initial laboratory analysis showed white blood cell count of 13, hemoglobin 11.5, platelets 612, sodium 133, BUN 28, creatinine 1.46 and was otherwise unremarkable. Initial troponin was negative. On evaluation by cardiology who felt he was consistent with acute pericarditis. Echocardiogram demonstrated moderate to large pericardial effusion with no evidence of tamponade ejection fraction 55-60%. 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 He was also seen by rheumatology at [facility] for possible PMR, Myositits, due to diffuse body pains, he reports negative EMG. He has a known abnormality on right chest, report positive CT PET with plan for biopsy at [facility]. Records reviewed. Patient with history of positive CRP, positive AMMY, mildly elevated aldolase, positive chromatin Patient with negative SSA, SSB, centromere, anti-Hitchcock, MANAGER SURGERY, anti-Cecilia, Trichinella antibody PET scan-areas lighting up within the right hemithorax and multiple lymph nodes throughout He was started on indomethacin and Colchicine. He was seen by infectious disease consult as an infectious etiology.He had serial echos which showed decreasing effusion. He was cleared for discharge by cardiology. Follow-up: Patient was instructed to continue follow-up with oncology, rheumatology at [facility]. He will establish with a clip loading machine feeder out of [facility]. He was given prescriptions for also seen and indomethacin. He was also given a prescription for [place] should he have continued pain. He was given instructions to return if he develops fevers or continued chest pain. Patient seen and examined at bedside. Pain is better but still present, breathing is better. Patient felt comfortable going home. Vital signs reviewed and stable. General: nontoxic, no distress, appears at stated age Derm: warm, dry Head: atraumatic, normocephalic, symmetric Eyes: EOMI, no lid lag, anicteric sclera Mouth: no lip lesion, mucus membranes moist Cardiovascular: S1S2 reg, no murmur, positive posterior tibial pulse bilateral, Lungs: Decreased bs bilateral, no rhonchi, no rales , no accessory muscle use Abdominal: soft, nontender to palpation, no guarding, no appreciable organomegaly Ext: no gross muscle atrophy, no edema, no contractures Neuro: CN II-XI grossly intact, no focal neuro deficits Psych: Alert, oriented, appropriate affect A total of 45 minutes of time were spent preparing this complex discharge summary. Patient was discharged on 03/21/22. Patient Condition at Discharge: Stable Plan - Discharge Summary New Discharge Prescriptions: New Atorvastatin [Lipitor] 40 mg PO DAILY #30 tab Colchicine [Colcrys] 0.6 mg PO BID #60 each Indomethacin [Indocin] 25 mg PO TID #54 cap Metoprolol Tartrate [Lopressor] 25 mg PO BID #60 tab HYDROcodone/APAP 5-325MG [[place] 5-325] 1 each PO Q4HR PRN #15 tab PRN Reason: Moderate Breakthrough Pain 4-6 Continue Cholecalciferol [Vitamin D3 (125 Mcg = 5000 Iu)] 125 mcg PO DAILY Cyanocobalamin (Vitamin B-12) [Vitamin B-12] 1,000 mcg PO DAILY predniSONE 5 mg PO DAILY Discontinued Ibuprofen [Motrin] 400 mg PO Q6HR PRN PRN Reason: Pain Discharge Medication List Cholecalciferol [Vitamin D3 (125 Mcg = 5000 Iu)] 125 mcg PO DAILY 04/27/21 [His tory] Cyanocobalamin (Vitamin B-12) [Vitamin B-12] 1,000 mcg PO DAILY 04/27/21 [History] predniSONE 5 mg PO DAILY 03/17/22 [History] Atorvastatin [Lipitor] 40 mg PO DAILY #30 tab 03/21/22 [Rx] Colchicine [Colcrys] 0.6 mg PO BID #60 each 03/21/22 [Rx] HYDROcodone/APAP 5-325MG [[place] 5-325] 1 each PO Q4HR PRN #15 tab 03/21/22 [Rx] Indomethacin [Indocin] 25 mg PO TID #54 cap 03/21/22 [Rx] Metoprolol Tartrate [Lopressor] 25 mg PO BID #60 tab 03/21/22 [Rx] Follow up Appointment(s)/Referral(s): Antoinette Lira MD [STAFF PHYSICIAN] - As Needed Markie Verde DO [Primary Care Provider] - 1-2 days Patient Instructions/Handouts: Acute Pericarditis (DC), Pericardial Effusion (DC) Activity/Diet/Wound Care/Special Instructions: Activity: as tolerated Diet: heart healthy Special Instructions: You should follow clip loading machine feeder. If you're unable to get into [facility] a timely fashion please make an appointment with Dr. Lira. You will need serial echocardiograms to ensure resolution paracardial effusion. Return with fevers, increased chest pain, increased shortness of breath Discharge Disposition: HOME SELF-CARE
== END 2022-03-21 13:43 | disposition home or self-care (01) | DRG 281 ==
LOC: EC 02:24 → 2SICU 03:23 → 3SCARD 03-19 15:04
PROVIDERS: ADMIT Internal Medicine; ATTEND Internal Medicine
PROC: B2131ZZ Fluoroscopy of Multiple Coronary Artery Bypass Grafts using Low Osmolar Contrast (ICD-10-PCS; principal; 2022-03-17 03:14)
PROC: B2151ZZ Fluoroscopy of Left Heart using Low Osmolar Contrast (ICD-10-PCS; principal; 2022-03-17 03:14)
PROC: 4A023N7 Measurement of Cardiac Sampling and Pressure, Left Heart, Percutaneous Approach (ICD-10-PCS; principal; 2022-03-17 03:14)
DX: I21.19 ST elevation (STEMI) myocardial infarction involving other coronary artery of inferior wall (principal); E87.1 Hypo-osmolality and hyponatremia; I30.1 Infective pericarditis; K51.90 Ulcerative colitis, unspecified, without complications; I31.39 Other pericardial effusion (noninflammatory); I25.10 Atherosclerotic heart disease of native coronary artery without angina pectoris; H91.90 Unspecified hearing loss, unspecified ear; I50.9 Heart failure, unspecified; I11.0 Hypertensive heart disease with heart failure; R79.1 Abnormal coagulation profile; E78.5 Hyperlipidemia, unspecified; R91.1 Solitary pulmonary nodule; D75.839 Thrombocytosis, unspecified; D64.9 Anemia, unspecified; K21.9 Gastro-esophageal reflux disease without esophagitis; M06.9 Rheumatoid arthritis, unspecified; Z79.51 Long term (current) use of inhaled steroids; Z79.52 Long term (current) use of systemic steroids; Z86.16 Personal history of COVID-19; Z90.81 Acquired absence of spleen; Z86.19 Personal history of other infectious and parasitic diseases; Z28.310 Unvaccinated for COVID-19; Z20.822 Contact with and (suspected) exposure to COVID-19; Z80.9 Family history of malignant neoplasm, unspecified; Z86.2 Personal history of diseases of the blood and blood-forming organs and certain disorders involving the immune mechanism
CPT/HCPCS: 36415; 71045; 80048; 80053; 80061; 82607; 82747; 83540; 83550; 83735; 83880; 84443; 84484; 85025; 85027; 85379; 86038; 86039; 86140; 86431; 86658; 87502; 87635; 93005; 93306; 93308; 93458; 94760; 99291

== ENCOUNTER → 2022-03-25 | Outpatient (CLI) | payer BC, MEDICARE ==
--- NOTE | 2022-03-25 15:45 | CT ---
EXAMINATION TYPE: CT chest w con DATE OF EXAM: 03/25/2022 COMPARISON: 07/14/2021 HISTORY: 66-year-old male R91.8, SOB, lung mass TECHNIQUE: Contiguous axial scanning of the chest after the administration of 70cc mL of Isovue 300. Coronal/sagittal reconstructions performed. CT DLP: 245.3mGycm. Automatic exposure control utilized for a dose reduction. FINDINGS: There is a large pericardial effusion measuring 3.1 cm thick. Prominent cardiac motion. On one of the images, there seems to be flattening of the interventricular septum. Mild to moderate calcifications aortic valve with ectasia of the ascending aorta 3.5 cm. Conventional arch vessel branching anatomy with mild atherosclerotic arch calcifications. Scattered nonenlarged mediastinal lymph nodes. Larger AP window and lower right paratracheal nodes me asuring up to 1.1 cm remain unchanged. There is subcarinal adenopathy measuring up to 2.4 cm may be slightly increased from 1.9 cm previousl y. Interval development of small bilateral pleural effusions. There seems to be some associated pleural thickening. Prominent interstitial and subpleural groundglass changes with a lower lung predominance. Patchy biba silar changes appear to have progressed. Visualized upper abdomen suggests some circumferential wall thickening distal esophagus, possible eso phagitis. Postsurgical changes left upper quadrant relating to prior splenectomy. Bones: No osseous destructive process. IMPRESSION: 1. The FDG avid nodule reported in the patient's history is not clearly identified. However, there chapman s been progression in the interstitial lung disease as compared to 07/14/2021. There are also new smal l bilateral pleural effusions with pleural thickening. Recommend pulmonary medicine referral to franco beckwith a diagnosis. Interstitial pneumonitis such as fibrotic NSIP is possible. However, the pleural ef fusions are unusual for this diagnosis. Given the pleural thickening, neoplastic etiology not entirel y excluded at this time. 2. NEW LARGE PERICARDIAL EFFUSION MEASURING UP TO 3 CM THICK. PATIENT SHOULD BE MONITORED TO EXCLUDE CARDIAC TAMPONADE PHYSIOLOGY. 3. Subcarinal node slightly larger at 2.4 cm versus 2.0 cm on 07/14/2021. Appropriate follow-up survei llance recommended. It may be reactive/post inflammatory. 4. The exam can be reevaluated for a suspicious pulmonary nodule if the patient's PET scan is made av ailable for review. biomedical engineering technologist will call physician's office for impression point #2 above immediately following the dictatio n.
== END | disposition home or self-care (01) ==
LOC: RADCTMAIN 12:59
DX: J90 Pleural effusion, not elsewhere classified (principal); J84.9 Interstitial pulmonary disease, unspecified; I31.39 Other pericardial effusion (noninflammatory); R91.8 Other nonspecific abnormal finding of lung field; R06.02 Shortness of breath; J92.9 Pleural plaque without asbestos
CPT/HCPCS: 71260; Q9967

== ENCOUNTER 2022-04-15 10:13 | Inpatient (IN) | payer BC, MEDICARE ==
[2022-04-15] MEDS ORDERED: NALOXONE 0.4 MG/ML 1 ML VIAL IV PRN (10:54)
--- NOTE | 2022-04-15 10:56 | ED ---
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 Gr for further evaluation and possible pericardial window. Patient was diagnosed with pericarditis on prior admission, and has had continued chest discomfort since that time. His prior admission was in late February. 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 Patient was seen at the office today, and there was concern for persistent pericardial effusion which is why he was sent here for admission, repeat echo, and evaluation by cardiothoracic surgery. He states he feels lightheaded sometimes, has intermittent chest discomfort that is relieved with [place], also feels dyspneic at times. All these symptoms have been chronic since his discharge from the hospital last month. Denies any fevers, cough, abdominal pain, nausea, vomiting. Is been on steroids as well his cultures in. Has no other acute complaints at this time. Presents for admission and further evaluation. - Related Data Home Medications Medication Instructions Recorded Confirmed HYDROcodone/APAP 5-325MG [[place] 1 tab PO Q4HR PRN 04/15/22 04/15/22 5-325] Previous Rx's Medication Instructions Recorded Colchicine [Colcrys] 0.6 mg PO BID #60 each 03/21/22 Metoprolol Tartrate [Lopressor] 25 mg PO BID #60 tab 03/21/22 Allergies Allergy/AdvReac Type Severity Reaction Status Date / Time No Known Allergies Allergy Verified 04/15/22 11:57 Review of Systems ROS Statement: Those systems with pertinent positive or pertinent negative responses have been documented in the HPI. Review of Systems: CONST: Denies fever EYES: Denies blurry vision ENT: Denies nasal congestion C/V: Endorses somewhat chronic chest discomfort, currently not experiencing. RESP: Denies shortness of breath GI: Denies abdominal pain : Denies dysuria SKIN: Denies rash. MSK: Denies joint pain. NEURO: Denies headache ROS Other: All systems not noted in ROS Statement are negative. Past Medical History Past Medical History: Blood Disorder, GERD/Reflux, Hearing Disorder / Deafness, Hyperlipidemia, Rheumatoid Arthritis (RA) Additional Past Medical History / Comment(s): Dx idiopathic thrombocytopenia, no further problems since spleen removed, hx. Lyme disease, Right ear is worse. Ulcerative colitis-surgery & has ileostomy, frequent burning in stomach, occasional dysphagia History of Any Multi-Drug Resistant Organisms: None Reported Past Surgical History: Bowel Resection, Orthopedic Surgery Additional Past Surgical History / Comment(s): BONE MARROW BX 12/12/13. Hx iliostomy age 15 for ulcerative colitis, Hx carpal tunnel release bilat., repair deviated nasal septum, LAPAROSCOPIC SPLENECTOMY; Nose surgery repair for broken nose. [facility]. Past Anesthesia/Blood Transfusion Reactions: No Reported Reaction Past Psychological History: No Psychological Hx Reported Smoking Status: Never smoker Past Alcohol Use History: Occasional Past Drug Use History: None Reported - Past Family History Mother Family Medical History: Cancer Father Family Medical History: Cancer General Exam - General Exam Comments Initial Comments: General: Appears in no acute distress. HEAD: Normal with no signs of head trauma. EYES: PERRLA, EOMI, conjunctiva normal, no discharge. ENT: Hearing grossly intact, normal oropharynx. RESPIRATORY: Clear breath sounds bilaterally. No wheezes, rales, or rhonchi. C/V: Regular rate and rhythm. S1 and S2 auscultated, no edema, peripheral pulses 2+ and intact throughout. Somewhat muffled heart sounds. ABD: Abd is soft, nontender, nondistended EXT: Normal range of motion, no obvious deformity SKIN: No rashes or lesions observed on exposed skin. NEURO: Alert and oriented 4. Limitations: no limitations Course Vital Signs 04/15/22 04/15/22 04/15/22 10:14 11:00 11:30 Temperature 97.8 F Pulse Rate 93 85 90 Respiratory 18 21 17 Rate Blood Pressure 126/73 121/79 111/75 O2 Sat by Pulse 99 99 98 Oximetry 04/15/22 04/15/22 12:00 12:20 Temperature Pulse Rate 80 80 Respiratory 14 17 Rate Blood Pressure 106/80 114/70 O2 Sat by Pulse 98 99 Oximetry Medical Decision Making - Medical Decision Making Based on the patient's presentation and physical exam, he is experiencing chronic symptoms from a persistent pericardial effusion. An echo at the office today showed persistence of this but we have no access to it. Therefore repeat echo was ordered. I consulted cardiology and spoke with Dr. Mann who is on- call who agreed to evaluate the patient. I initially spoke with Dr. Gr who instructed me to admit for this pericardial effusion and possible evaluation by CT surgery for pericardial window. Requested repeat ultrasound which was ordered ordered. We did recheck to the echo team and inform them of the urgent echo next best understanding. I consulted CT surgery to inform them of the consult, and I spoke with Ktaey Bose the mid-level provider who accepted the consult. We ordered cardiac labs which were remarkable for a chronic thrombocytosis, a mild leukocytosis which is likely reactive or secondary to steroid use. Troponin is undetectable. EKG was unremarkable. No signs of acute ischemia. Chest x-ray revealed findings consistent for cardiomegaly which is likely secondary to his known pericardial effusion. There is also a very small right-sided pleural effusion. Clinically, the patient showing no evidence of tamponade. He is hemodynamically stable. I updated the patient. I would like to admit him at this time. He accepted the admission. I spoke with the admitting team, Dr. Borrero who accepted the admission. Was pt. sent in by a medical professional or institution (, PA, PHERESIS NURSE, urgent care, hospital, or long-term...) When possible be specific @ -Yes, patient's dielectric embossing machine operator Dr. Gr sent the patient in for evaluation. Did you speak to anyone other than the patient for history (EMS, parent, family, police, friend...)? What history was obtained from this source @ -No Did you review nursing and triage notes (agree or disagree)? Why? @ -I reviewed and agree with nursing and triage notes Were old charts reviewed (outside hosp., previous admission, EMS record, old EKG, old radiological studies, urgent care reports/EKG's, long-term records)? Report findings @ -Yes, old charts an admission from February 2022 reviewed. This includes EKG. Differential Diagnosis (chest pain, altered mental status, abdominal pain women, abdominal pain men, vaginal bleeding, weakness, fever, dyspnea, syncope, headache, dizziness, GI bleed, back pain, seizure, CVA, palpatations, mental h ealth)? @ -Worsening pericardial effusion, pericardial tamponade, CAD, ACS. EKG interpreted by me (3pts min.). @ -As above X-rays interpreted by me (1pt min.). @ -Chest x-ray revealed continued cardiomegaly likely secondary to pericardial effusion, small right-sided pleural effusion. CT interpreted by me (1pt min.). @ -None done U/S interpreted by me (1pt. min.). @ -None done What testing was considered but not performed or refused? (CT, X-rays, U/S, labs)? Why? @ -None What meds were considered but not given or refused? Why? @ -None Did you discuss the management of the patient with other professionals (professionals i.e. , PA, PHERESIS NURSE, lab, RT, psych nurse, pediatric social worker, sanding machine tender automatic, teacher, civil preparedness officer, rn case mgr)? Give summary @ -Yes, I spoke with Dr. Borrero the admitting physician who accepted the patient. I spoke with Katey Bose mid-level provider of cardiothoracic surgery who accepted the consult. I spoke with Dr. Gonzalez was composition roll maker and cutter for cardiology who accepted the consult. All teams were in agreement with the plan. Was smoking cessation discussed for >3mins.? @ -No Was critical care preformed (if so, how long)? @ -No Were there social determinants of health that impacted care today? How? (Homelessness, low income, unemployed, alcoholism, drug addiction, transportation, low edu. Level, literacy, decrease access to med. care, skilled nursing, rehab)? @ -No Was there de-escalation of care discussed even if they declined (Discuss DNR or withdrawal of care, Hospice)? DNR status @ -No What co-morbidities impacted this encounter? (DM, HTN, Smoking, COPD, CAD, Cancer, CVA, ARF, Chemo, Hep., AIDS, mental health diagnosis, sleep apnea, morbid obesity)? @ -Pericarditis, pericardial effusion Was patient admitted / discharged? Hospital course, mention meds given and route, prescriptions, significant lab abnormalities, going to OR and other pertinent info. @ -Admitted to the hospital. See above for ED course. Undiagnosed new problem with uncertain prognosis? @ -No Drug Therapy requiring intensive monitoring for toxicity (Heparin, Nitro, Insulin, Cardizem)? @ -No Were any procedures done? @ -No Diagnosis/symptom? @ -Pericardial effusion, symptomatic Acute, or Chronic, or Acute on Chronic? @ -Acute chronic Uncomplicated (without systemic symptoms) or Complicated (systemic symptoms)? @ -Complicated Side effects of treatment? @ -No Exacerbation, Progression, or Severe Exacerbation? @ -No Poses a threat to life or bodily function? How? (Chest pain, [place], [place], pneumonia, PE, COPD, DKA, ARF, appy, cholecystitis, CVA, Diverticulitis, Homicidal, Suicidal, threat to staff... and all critical care pts) @ -Yes, untreated could result in significant morbidity and mortality. Diagnosis/symptom? @ -Chest pain Acute, or Chronic, or Acute on Chronic? @ -Chronic Uncomplicated (without systemic symptoms) or Complicated (systemic symptoms)? @ -Uncomplicated Side effects of treatment? @ -none Exacerbation, Progression, or Severe Exacerbation] @ -no Poses a threat to life or bodily function? @ -no - Lab Data Result diagrams: 04/15/22 10:39 04/15/22 10:39 Lab Results 04/15/22 04/15/22 04/15/22 Range/Units 10:39 10:39 10:39 WBC 10.8 H (3.8-10.6) k/uL RBC 4.50 (4.30-5.90) m/uL Hgb 13.2 (13.0-17.5) gm/dL Hct 40.5 (39.0-53.0) % MCV 90.1 (80.0-100.0) fL MCH 29.4 (25.0-35.0) pg MCHC 32.6 (31.0-37.0) g/dL RDW 14.5 (11.5-15.5) % Plt Count 587 H (150-450) k/uL MPV 8.1 Neutrophils % 87 % Lymphocytes % 8 % Monocytes % 3 % Eosinophils % 1 % Basophils % 1 % Neutrophils # 9.3 H (1.3-7.7) k/uL Lymphocytes # 0.9 L (1.0-4.8) k/uL Monocytes # 0.3 (0-1.0) k/uL Eosinophils # 0.1 (0-0.7) k/uL Basophils # 0.1 (0-0.2) k/uL PT 10.2 (9.0-12.0) sec INR 1.0 (<1.2) APTT 24.5 (22.0-30.0) sec Sodium 135 L (137-145) mmol/L Potassium 4.5 (3.5-5.1) mmol/L Chloride 106 (98-107) mmol/L Carbon Dioxide 21 L (22-30) mmol/L Anion Gap 8 mmol/L BUN 26 H (9-20) mg/dL Creatinine 0.94 (0.66-1.25) mg/dL Est GFR (CKD-EPI)AfAm >90 (>60 ml/min/1.73 sqM) Est GFR (CKD-EPI)NonAf 84 (>60 ml/min/1.73 sqM) Glucose 157 H (74-99) mg/dL Calcium 8.6 (8.4-10.2) mg/dL Magnesium 1.7 (1.6-2.3) mg/dL Total Bilirubin 0.7 (0.2-1.3) mg/dL AST 54 (17-59) U/L ALT 64 H (4-49) U/L Alkaline Phosphatase 147 H (38-126) U/L Troponin I (0.000-0.034) ng/mL Total Protein 7.4 (6.3-8.2) g/dL Albumin 3.3 L (3.5-5.0) g/dL 04/15/22 Range/Units 10:39 WBC (3.8-10.6) k/uL RBC (4.30-5.90) m/uL Hgb (13.0-17.5) gm/dL Hct (39.0-53.0) % MCV (80.0-100.0) fL MCH (25.0-35.0) pg MCHC (31.0-37.0) g/dL RDW (11.5-15.5) % Plt Count (150-450) k/uL MPV Neutrophils % % Lymphocytes % % Monocytes % % Eosinophils % % Basophils % % Neutrophils # (1.3-7.7) k/uL Lymphocytes # (1.0-4.8) k/uL Monocytes # (0-1.0) k/uL Eosinophils # (0-0.7) k/uL Basophils # (0-0.2) k/uL PT (9.0-12.0) sec INR (<1.2) APTT (22.0-30.0) sec Sodium (137-145) mmol/L Potassium (3.5-5.1) mmol/L Chloride (98-107) mmol/L Carbon Dioxide (22-30) mmol/L Anion Gap mmol/L BUN (9-20) mg/dL Creatinine (0.66-1.25) mg/dL Est GFR (CKD-EPI)AfAm (>60 ml/min/1.73 sqM) Est GFR (CKD-EPI)NonAf (>60 ml/min/1.73 sqM) Glucose (74-99) mg/dL Calcium (8.4-10.2) mg/dL Magnesium (1.6-2.3) mg/dL Total Bilirubin (0.2-1.3) mg/dL AST (17-59) U/L ALT (4-49) U/L Alkaline Phosphatase (38-126) U/L Troponin I <0.012 (0.000-0.034) ng/mL Total Protein (6.3-8.2) g/dL Albumin (3.5-5.0) g/dL - EKG Data -: EKG Interpreted by Me EKG Comments: 12-lead Electrocardiogram Interpretation Note EKG was reviewed and interpreted by myself. 12-lead ECG performed at 1026 is interpreted by me as revealing normal sinus rhythm at a rate of 88 beats per minute. [place] is normal. [place] interval is 116 ms, QRS duration 71 ms, QTc is 404 ms.. There were no ST or T wave abnormalities to suggest myocardial ischemia or injury. R wave progression across the precordium was satisfactory. By my interpretation this EKG is non-diagnostic for acute ischemia. When compared with EKG from 03/18/2022, appears improved. There is no longer ST segment elevations in the inferior leads. Disposition Clinical Impression: Pericardial effusion, Chest pain Disposition: ADMITTED IP TO THIS [facility] Condition: Stable Time of Disposition: 10:55
--- NOTE | 2022-04-15 11:03 | XR ---
EXAMINATION TYPE: XR chest 2V DATE OF EXAM: 04/15/2022 10:54 AM COMPARISON: Chest radiographs from 03/19/2022, CT chest 03/25/2022 TECHNIQUE: XR chest 2V Frontal and lateral views of the chest. CLINICAL INDICATION:Male, 66 years old with history of Chest Pain; FINDINGS: Lungs/Pleura: No focal consolidation or pneumothorax. Blunting of the right costophrenic angle consis tent with trace right pleural effusion. Pulmonary vascularity: Unremarkable. Heart/mediastinum: Cardiomediastinal silhouette is enlarged and stable. Musculoskeletal: No acute osseous pathology. IMPRESSION: 1. Persistent enlarged cardiac silhouette which likely represents moderate to large size pericardial effusion when compared to prior CT 03/25/2022. 2. Trace right pleural effusion.
[2022-04-15 11:16] LABS: Partial Thromboplastin Time 24.5 sec (22.0-30.0); Prothrombin Time 10.2 sec (9.0-12.0)
[2022-04-15 11:38] LABS: Basophils # (A) 0.1 k/uL (0-0.2); Basophils % (A) 1 %; Eosinophils # (A) 0.1 k/uL (0-0.7); Eosinophils % (A) 1 %; HCT 40.5 % (39.0-53.0); HGB 13.2 gm/dL (13.0-17.5); Lymphocytes # (A) 0.9 k/uL (1.0-4.8); Lymphocytes % (A) 8 %; MCH 29.4 pg (25.0-35.0); MCHC 32.6 g/dL (31.0-37.0); MCV 90.1 fL (80.0-100.0); Mean Platelet Volume 8.1; Monocytes # (A) 0.3 k/uL (0-1.0); Monocytes % (A) 3 %; Neutrophils # (A) 9.3 k/uL (1.3-7.7); Neutrophils % (A) 87 %; Platelet Count 587 k/uL (150-450); RDW 14.5 % (11.5-15.5); WBC 10.8 k/uL (3.8-10.6)
[2022-04-15 12:03] LABS: ALT 64 U/L (4-49); AST 54 U/L (17-59); African American GFR (CKD) >90 (>60 ml/min/1.73 sqM); Albumin 3.3 g/dL (3.5-5.0); Alkaline Phosphatase 147 U/L (38-126); Anion Gap 8 mmol/L; Blood Urea Nitrogen 26 mg/dL (9-20); Calcium 8.6 mg/dL (8.4-10.2); Carbon Dioxide 21 mmol/L (22-30); Chloride 106 mmol/L (98-107); Glucose 157 mg/dL (74-99); Magnesium 1.7 mg/dL (1.6-2.3); Non-African American GFR(CKD) 84 (>60 ml/min/1.73 sqM); Potassium 4.5 mmol/L (3.5-5.1); Sodium 135 mmol/L (137-145); Total Bilirubin 0.7 mg/dL (0.2-1.3); Total Protein 7.4 g/dL (6.3-8.2)
--- NOTE | 2022-04-15 12:11 | P.CRDCN ---
History of Present Illness Consult date: 04/15/22 History of present illness: History of Present Illness: The patient is a 66 male who was admitted through the emergency room for evaluation of treatment of persistent pericardial effusion. He is followed on a regular basis by Dr. Gr. He presented to the hospital on March 17 with symptoms of chest discomfort that started 2 days prior to admission and had ST elevation predominantly in the inferior leads but diffused. He underwent cardiac catheterization that showed no significant disease. Subsequently his echocardiogram showed evidence of pericardial effusion and he was diagnosed with pericarditis. He was started on colchicine and repeat echocardiogram performed in the office has shown a moderate to severe pericardial effusion with no tamponade. The patient continues to have episodes of chest discomfort as well as dyspnea on exertion. He has no syncope but feels dizzy at times. He has no clear PND or orthopnea. His appetite has been poor and he has lost weight. He has received a course of steroids as an outpatient in addition to his colchic ine. His echocardiogram on presentation showed a normal systolic function with mild aortic and tricuspid regurgitation with a moderate to large pericardial effusion. The patient has a prior history of Lyme disease that has been stable and was diagnosed with toxoplasmosis, treated with Bactrim and had a negative testing. His initial diagnosis was in July of last year. He had an abnormal chest x-ray and computed tomography scan of the chest, subsequently underwent a PET scan and was followed at [facility] and according to him repeat CAT scan showed improvement and there was no evidence to suggest malignancy. He has a prior history of ulcerative colitis, post coronary dissection and subsequent splenectomy because of ITP. A computed tomography scan of the chest performed on March 25 showed scattered nonenlarged mediastinal lymph nodes subcarinal adenopathy, the pericardial effusion was noted as well. The patient is a nonsmoker, nondiabetic. Medications: Lopressor 25 mg twice a day in addition to colchicine Review of Systems: Respiratory: He has dyspnea on exertion worsened recently GI: Mild nausea, no vomiting . No history of peptic ulcer disease. No recent GI bleed. : No hematuria or dysuria. Nervous System: No stroke or seizure. Physical Examination: 66-year-old male, alert and oriented no apparent distress ,Blood pressure 126/70, Heart rate 90 Head: Normocephalic. Eyes: Sclerae nonicteric. Neck: Good carotid upstroke, no bruit, no jugular venous distention. Lungs: Clear to auscultation. Heart: Regular rate and rhythm, S1-S2, no S3, no rub. Systolic ejection murmur, /6. Abdomen: Soft nontender, positive bowel sounds no organomegaly. Extremities: No edema, intact distal pulses. Labs: Potassium 4.5, BUN 26, creatinine 0.4. ALT 64. Albumin 3.3. White blood cell 10.8 EKG: EKG shows sinus mechanism with nonspecific ST-T wave changes Impression: 1. Persistent moderate to large pericardial effusion, etiology unclear, associated with continuous dyspnea and chest discomfort. Rule out malignancy 2. Abnormal computed tomography scan of the chest was followed at [facility] 3. Weight loss 4. Status post splenectomy 5. Status post colon resection 6. History of toxoplasmosis Plan: 1. Obtain an echocardiogram with Doppler 2. Proceed with pericardial window for diagnosis and therapy 3. Obtain the prior workup from [facility] 4. Pulmonary consultation 5. Depending on his progress further recommendations will be made, thank you for this consult we will follow with you. Past Medical History Past Medical History: Blood Disorder, GERD/Reflux, Hearing Disorder / Deafness, Hyperlipidemia, Rheumatoid Arthritis (RA) Additional Past Medical History / Comment(s): Dx idiopathic thrombocytopenia, no further problems since spleen removed, hx. Lyme disease, Right ear is worse. Ulcerative colitis-surgery & has ileostomy, frequent burning in stomach, occasional dysphagia History of Any Multi-Drug Resistant Organisms: None Reported Past Surgical History: Bowel Resection, Orthopedic Surgery Additional Past Surgical History / Comment(s): BONE MARROW BX 12/12/13. Hx iliostomy age 15 for ulcerative colitis, Hx carpal tunnel release bilat., repair deviated nasal septum, LAPAROSCOPIC SPLENECTOMY; Nose surgery repair for broken nose. Mass on right lung follow [facility] at [facility] possible carcinoma. Past Anesthesia/Blood Transfusion Reactions: No Reported Reaction Past Psychological History: No Psychological Hx Reported Smoking Status: Never smoker Past Alcohol Use History: Occasional Past Drug Use History: None Reported - Past Family History Mother Family Medical History: Cancer Father Family Medical History: Cancer Medications and Allergies Home Medications Medication Instructions Recorded Confirmed Type Colchicine [Colcrys] 0.6 mg PO BID #60 each 03/21/22 04/15/22 Rx Metoprolol Tartrate [Lopressor] 25 mg PO BID #60 tab 03/21/22 04/15/22 Rx HYDROcodone/APAP 5-325MG [Echo 1 tab PO Q4HR PRN 04/15/22 04/15/22 History 5-325] Allergies Allergy/AdvReac Type Severity Reaction Status Date / Time No Known Allergies Allergy Verified 04/15/22 11:57 Physical Exam Vitals: Vital Signs Temp Pulse Resp BP Pulse Ox 04/15/22 10:14 97.8 F 93 18 126/73 99 Intake and Output 04/14/22 04/15/22 04/15/22 22:59 06:59 14:59 Other: Weight 71.214 kg Results 04/15/22 10:39 Coagulation 04/15/22 Range/Units 10:39 PT 10.2 (9.0-12.0) sec APTT 24.5 (22.0-30.0) sec CBC 04/15/22 Range/Units 10:39 WBC 10.8 H (3.8-10.6) k/uL RBC 4.50 (4.30-5.90) m/uL Hgb 13.2 (13.0-17.5) gm/dL Hct 40.5 (39.0-53.0) % Plt Count 587 H (150-450) k/uL Current Medications Generic Name Dose Route Start Last Admin Trade Name Freq PRN Reason Stop Dose Admin Naloxone HCl 0.2 mg 04/15/22 10:54 Naloxone 0.4 Mg/Ml 1 Ml Vial IV Q2M PRN Opioid Reversal Intake and Output 04/14/22 04/15/22 04/15/22 22:59 06:59 14:59 Other: Weight 71.214 kg Patient Weight 04/16/22 06:59 Weight 71.214 kg 04/15/22 10:39
--- NOTE | 2022-04-15 14:07 | P.CNPUL ---
History of Present Illness Consult date: 04/15/22 Reason for consult: dyspnea History of present illness: 66-year-old male patient hospitalized for a large pericardial effusion and ongoing shortness of breath. This is not a real finding as the pericardial effusion was seen in the earlier CAT scan of the chest that was done on 03/25/2022. Based on the CAT scan findings from the same date, the patient a large pericardial effusion along with scattered enlarged mediastinal lymphadenopathy largest in the AP window and in the right paratracheal area and those were present back in June 2021 and the remaining essentially unchanged. There was also subcarinal lymphadenopathy measuring 2.4 cm in size slightly increased in size and there was interval development of small bilateral pleural effusions and some increased interstitial changes in lung bases bilaterally. The patient has already had previous evaluations and [facility] in this regard. Previous PET scan was also done and [facility].the PET scan that was done in January 2022 Head and Neck: Increased focus of radiotracer uptake in the adjacent to left mandible which could reflect a hypermetabolic lymph node. Thorax: There is a 1.1 cm subpleural noncalcified solid with surrounding groundglass pulmonary nodule, probably in the right upper lobe, with increased metabolic activity, SUV 8.2. There is an additional 3 mm solid, noncalcified right middle lobe pulmonary nodule with mildly increased metabolic activity. There is increased reticulation and bronchiolectasis in the right middle lobe and bilateral lower lobes. Small bilateral pleural effusions, right greater than left without significantly increased metabolic activity. There are several moderately hypermetabolic mediastinal lymph nodes. There are several nonenlarged bilateral axillary lymph nodes with mildly increased metabolic activity, SUV max 2.7. Abdomen and Pelvis: Mild to moderate FDG uptake in retroperitoneal and right pelvic lymph nodes. Increased radiotracer uptake near the ruben hepatis immediately posterior to the expected course of the common hepatic artery without clear anatomic correlate, which could represent lymph nodes or a mass. A diagnostic quality CT is needed for further evaluation. Post splenectomy surgical changes. Ileostomy. Osseous Structures: Increased FDG uptake in the left shoulder joint, likely inflammatory in etiology. Degenerative changes of the spine. showed Noted the patient was hospitalized back in 03/17/2022 and the patient was having EKG changes with ST segment elevation. Cardiac catheterization was done and the patient was found to have nonocclusive CAD. The LV end-diastolic pressure was 20. There was diagnosed branch 70-80% stenosis, RCA was dominant and there was another 30-40% stenosis involving the RCA. Normal left main. Normal LAD. Normal circumflex. Subsequent echocardiogram that was done at that time showed pericardial effusion and the patient was started on colchicine. Ejection fraction was around 55-60%. The pericardial effusion was moderate to large in size and there was no evidence of any complement. Upon further workup, the patient has a positive RF factor mildly elevated at 37, significantly elevated AMMY on 2 separate occasions. Nevertheless, the patient has history of ulcerative colitis. The patient also has history of ITP with previous splenectomy. The patient currently has a diverting ileostomy. Other comorbid conditions are previous history of Lyme's disease back in year 1999 treated, previous history of toxoplasma infection with positive IgG levels and the patient was given a course of Bactrim which she completed. He also has had previous Covid 19 infection 2. No vaccination. Review of Systems Constitutional: Reports fatigue, Reports weakness, Reports weight loss Eyes: denies as per HPI, denies blurred vision, denies bulging eye, denies decreased vision, denies diplopia, denies discharge, denies dry eye, denies irritation, denies itching, denies pain, denies photophobia, denies loss of peripheral vision, denies loss of vision, denies tunnel vision/blind spots Ears: deny: decreased hearing, ear discharge, earache, tinnitus Ears, nose, mouth and throat: Reports as per HPI Breasts: absent: as per HPI, gynecomastia Cardiovascular: Reports decreased exercise tolerance, Reports dyspnea on exertion Respiratory: Reports dyspnea Gastrointestinal: Reports as per HPI Genitourinary: Reports as per HPI Musculoskeletal: Reports as per HPI, Reports muscle weakness Musculoskeletal: absent: ankle pain, ankle stiffness, ankle swelling, as per HPI, elbow pain, elbow stiffness, elbow swelling, foot pain, foot stiffness, foot swelling, hand pain, hand stiffness, hand swelling, hip pain, hip stiffness, hip swelling, knee pain, knee stiffness, knee swelling, shoulder pain, shoulder stiffness, shoulder swelling, wrist pain, wrist stiffness, wrist swelling Integumentary: Reports as per HPI Neurological: Reports as per HPI Psychiatric: Reports as per HPI Endocrine: Reports as per HPI, Reports fatigue Hematologic/Lymphatic: Reports as per HPI Allergic/Immunologic: Reports as per HPI Past Medical History Past Medical History: Blood Disorder, Coronary Artery Disease (CAD), GERD/Reflux, Hearing Disorder / Deafness, Hyperlipidemia, Rheumatoid Arthritis (RA) Additional Past Medical History / Comment(s): Dx idiopathic thrombocytopenia, no further problems since spleen removed, hx. Lyme disease, Right ear is worse. Ulcerative colitis-surgery & has ileostomy, frequent burning in stomach, occasional dysphagia. toxoplasma infection in July 2021, treated with Bactrim for 6 weeks. Positive AMMY, RF History of Any Multi-Drug Resistant Organisms: None Reported Past Surgical History: Bowel Resection, Orthopedic Surgery Additional Past Surgical History / Comment(s): BONE MARROW BX 12/12/13. Hx iliostomy age 15 for ulcerative colitis, Hx carpal tunnel release bilat., repair deviated nasal septum, LAPAROSCOPIC SPLENECTOMY; Nose surgery repair for broken nose. Past Anesthesia/Blood Transfusion Reactions: No Reported Reaction Past Psychological History: No Psychological Hx Reported Smoking Status: Never smoker Past Alcohol Use History: Occasional Past Drug Use History: None Reported - Past Family History Mother Family Medical History: Cancer Father Family Medical History: Cancer Medications and Allergies Home Medications Medication Instructions Recorded Confirmed Type Colchicine [Colcrys] 0.6 mg PO BID #60 each 03/21/22 04/15/22 Rx Metoprolol Tartrate [Lopressor] 25 mg PO BID #60 tab 03/21/22 04/15/22 Rx HYDROcodone/APAP 5-325MG [[place] 1 tab PO Q4HR PRN 04/15/22 04/15/22 History 5-325] Allergies Allergy/AdvReac Type Severity Reaction Status Date / Time No Known Allergies Allergy Verified 04/15/22 11:57 Physical Exam Vitals: Vital Signs Temp Pulse Pulse Resp BP BP Pulse Ox 04/15/22 12:44 98.2 F 83 15 107/70 98 04/15/22 12:20 80 17 114/70 99 04/15/22 12:00 80 14 106/80 98 04/15/22 11:30 90 17 111/75 98 04/15/22 11:00 85 21 121/79 99 04/15/22 10:14 97.8 F 93 18 126/73 99 Intake and Output 04/14/22 04/15/22 04/15/22 22:59 06:59 14:59 Other: Weight 71.214 kg Results - Laboratory Findings CBC and BMP: 04/15/22 10:39 04/15/22 10:39 PT/INR, D-dimer PT 10.2 sec (9.0-12.0) 04/15/22 10:39 INR 1.0 (<1.2) 04/15/22 10:39 Abnormal lab findings: Abnormal Labs 04/15/22 04/15/22 10:39 10:39 WBC 10.8 H Plt Count 587 H Neutrophils # 9.3 H Lymphocytes # 0.9 L Sodium 135 L Carbon Dioxide 21 L BUN 26 H Glucose 157 H ALT 64 H Alkaline Phosphatase 147 H Albumin 3.3 L - Diagnostic Findings Chest x-ray: image reviewed CT scan - chest: image reviewed Assessment and Plan Plan: large pericardial effusion with a recent history of pericarditis. No physiologic evidence of temporal no that this point in time. Nevertheless the patient is symptomatic and short of breath and the patient is going to undergo a cardiothoracic surgery evaluation Bilateral small pleural effusions Mediastinal lymphadenopathy involving the paratracheal subcarinal and AP window area. Based on the previous PET/CT, there was some metabolic activity within the mediastinum Coronary artery disease, please refer to the cardiac catheterization report from Chronic interstitial change in lung bases bilaterally, rule out underlying ILD, being evaluated [facility]. History of Lyme disease, treated History of toxoplasma infection, treated History of ITP, post splenectomy, platelet counts are normal History of ulcerative colitis and the patient has had previous bowel surgery and the patient has diabetic ileostomy Positive AMMY and rheumatoid factor Previous history of Covid 19 infection 2, no vaccination plan Proceed with pericardiocentesis versus pericardial window. This surgery was consulted. May consider endobronchial ultrasound of the mediastinal lymph nodes the later stage if no definite of diagnosis established post drainage of the pericardial fluid Obtain records from [facility] We'll continue to follow
[2022-04-15] MEDS ORDERED: ACETAMINOPHEN TAB 325 MG TAB PO PRN (14:08)
[2022-04-15] MEDS ORDERED: CALCIUM CARBONATE 500 MG CHEWABLE PO PRN (14:08)
[2022-04-15] MEDS ORDERED: ONDANSETRON 4 MG/2 ML VIAL IVP PRN (14:08)
[2022-04-15] MEDS ORDERED: LORazepam 0.5 MG TAB PO PRN (14:08)
[2022-04-15] MEDS ORDERED: TEMAZEPAM 15 MG CAP PO PRN (14:08)
[2022-04-15] MEDS ORDERED: LACTULOSE 20 GM/30 ML CUP PO PRN (14:08)
--- NOTE | 2022-04-15 15:04 | P.GSCN ---
History of Present Illness Consult date: 04/15/22 Reason for Consult: Pericardial effusion Requesting physician: Quintin Rodriguez History of present illness: This is a 66-year-old gentleman who follows outpatient with Dr. Markie Oscar for primary care and Dr. Gr for cardiology. He has a previous medical history of hyperlipidemia, ITP status post splenectomy, ulcerative colitis status post ileostomy, Lyme disease, chart states rheumatoid arthritis however patient denies history of, right lung mass worked up at [facility]. He presented to [facility] in February 2022 with chest pain, he was diagnosed with a STEMI and taken to the [facility] which demonstrated a diagonal branch with 70-80% stenosis, dominant right coronary artery with area of plaque rupture in the proximal portion with 30-40% stenosis, and no other significant coronary artery disease. At that time a transthoracic echocardiogram was completed demonstrating normal left ventricular systolic function with EF 55- 60%, no regional wall motion abnormalities, trace mitral regurgitation, mild aortic regurgitation, and mild tricuspid regurgitation along with moderate to large pericardial effusion without tamponade physiology. He was diagnosed with acute pericarditis and treated with colchicine and steroids, repeat echo a few days later demonstrated some improvement with mild to moderate pericardial effusion. Upon discharge he was to follow-up at [facility]. The patient has had serial CT scans of the chest, most recently done here 03/25/2022 which demonstrated large pericardial effusion along with scattered enlarged mediastinal lymphadenopathy as well as subcarinal lymphadenopathy. Apparently the patient also had a PET scan completed at [facility], results not available to us at this time. He did follow-up in the office today with Dr. Gr, an echocardiogram was completed the office and the patient was noted to continue to have a moderate to severe pericardial effusion, and he presented to [facility] emergency room at the request of Dr. Gr for evaluation. His symptoms consist of chest pain/fullness as well as shortness of breath with exertion. Consultation was placed to Dr. Lacy from cardiothoracic surgery for recommendations regarding pericardial effusion. Review of Systems Review of systems is completed and was negative except as noted - Cardiovascular Reports as per HPI, Reports chest pain, Reports dyspnea on exertion Past Medical History Past Medical History: Blood Disorder, Coronary Artery Disease (CAD), GE RD/Reflux, Hearing Disorder / Deafness, Hyperlipidemia, Myocardial Infarction (OR) Additional Past Medical History / Comment(s): idiopathic thrombocytopenia; Lyme disease, ulcerative colitis; covid 2, remains unvaccinated History of Any Multi-Drug Resistant Organisms: None Reported Past Surgical History: Bowel Resection, Heart Catheterization, Orthopedic Surgery Additional Past Surgical History / Comment(s): BONE MARROW BX 12/12/13. Hx iliostomy age 15 for ulcerative colitis, Hx carpal tunnel release bilat., repair deviated nasal septum, LAPAROSCOPIC SPLENECTOMY; Nose surgery repair for broken nose. Mass on right lung follow up at [facility] possible carcinoma. Past Anesthesia/Blood Transfusion Reactions: No Reported Reaction Past Psychological History: No Psychological Hx Reported Smoking Status: Never smoker Past Alcohol Use History: Occasional Past Drug Use History: None Reported - Past Family History Mother Family Medical History: Cancer Additional Family Medical History / Comment(s): Mother from ovarian cancer Father Family Medical History: Cancer Additional Family Medical History / Comment(s): Father in his 90s of old age Medications and Allergies Home Medications Medication Instructions Recorded Confirmed Type Colchicine [Colcrys] 0.6 mg PO BID #60 each 03/21/22 04/15/22 Rx Metoprolol Tartrate [Lopressor] 25 mg PO BID #60 tab 03/21/22 04/15/22 Rx HYDROcodone/APAP 5-325MG [[place] 1 tab PO Q4HR PRN 04/15/22 04/15/22 History 5-325] Allergies Allergy/AdvReac Type Severity Reaction Status Date / Time No Known Allergies Allergy Verified 04/15/22 11:57 Surgical - Exam Vital Signs Temp Pulse Resp BP Pulse Ox 97.8 F 93 18 126/73 99 04/15/22 10:14 04/15/22 10:14 04/15/22 10:14 04/15/22 10:14 04/15/22 10:14 Patient Seen Date: 04/15/22 Patient Seen Time: 13:30 CONSTITUTIONAL: Awake and alert, appears comfortable, cooperative, well- developed, well-nourished, no pain, no acute distress EYES: Pupils equal, round, reactive to light, normal ocular movement ENT: Moist mucous membranes without oral lesions present NECK: No masses, no bruits, trachea midline RESPIRATORY: Lungs sounds diminished bilaterally. Respirations even, nonlabored. Currently on room air with oxygen saturation 98%. CARDIOVASCULAR: S1, S2 present. Regular rate and rhythm, sinus rhythm on telemetry. Palpable peripheral pulses bilaterally. No edema present. GASTROINTESTINAL: Abdomen soft, nontender, nondistended without masses or organomegaly noted. There is no rebound or guarding present. Active bowel sounds present 4 quadrants. GENITOURINARY: Deferred INTEGUMENTARY: Skin is warm and dry NEUROLOGIC: Cranial nerves II through XII intact, normal coordination, no obvious motor or sensory deficits, speech is normal MUSKULOSKELETAL: Able to move all extremities, strength equal bilaterally, normal posture PSYCHIATRIC: Alert and oriented to person place and time, appropriate affect, intact judgment and insight Results - Labs 04/15/22 10:39 04/15/22 10:39 Abnormal Lab Results - Last 24 Hours (Table) 04/15/22 04/15/22 Range/Units 10:39 10:39 WBC 10.8 H (3.8-10.6) k/uL Plt Count 587 H (150-450) k/uL Neutrophils # 9.3 H (1.3-7.7) k/uL Lymphocytes # 0.9 L (1.0-4.8) k/uL Sodium 135 L (137-145) mmol/L Carbon Dioxide 21 L (22-30) mmol/L BUN 26 H (9-20) mg/dL Glucose 157 H (74-99) mg/dL ALT 64 H (4-49) U/L Alkaline Phosphatase 147 H (38-126) U/L Albumin 3.3 L (3.5-5.0) g/dL Diabetes panel 04/15/22 Range/Units 10:39 Sodium 135 L (137-145) mmol/L Potassium 4.5 (3.5-5.1) mmol/L Chloride 106 (98-107) mmol/L Carbon Dioxide 21 L (22-30) mmol/L BUN 26 H (9-20) mg/dL Creatinine 0.94 (0.66-1.25) mg/dL Glucose 157 H (74-99) mg/dL Calcium 8.6 (8.4-10.2) mg/dL AST 54 (17-59) U/L ALT 64 H (4-49) U/L Alkaline Phosphatase 147 H (38-126) U/L Total Protein 7.4 (6.3-8.2) g/dL Albumin 3.3 L (3.5-5.0) g/dL Calcium panel 04/15/22 Range/Units 10:39 Calcium 8.6 (8.4-10.2) mg/dL Albumin 3.3 L (3.5-5.0) g/dL Pituitary panel 04/15/22 Range/Units 10:39 Sodium 135 L (137-145) mmol/L Potassium 4.5 (3.5-5.1) mmol/L Chloride 106 (98-107) mmol/L Carbon Dioxide 21 L (22-30) mmol/L BUN 26 H (9-20) mg/dL Creatinine 0.94 (0.66-1.25) mg/dL Glucose 157 H (74-99) mg/dL Calcium 8.6 (8.4-10.2) mg/dL Adrenal panel 04/15/22 Range/Units 10:39 Sodium 135 L (137-145) mmol/L Potassium 4.5 (3.5-5.1) mmol/L Chloride 106 (98-107) mmol/L Carbon Dioxide 21 L (22-30) mmol/L BUN 26 H (9-20) mg/dL Creatinine 0.94 (0.66-1.25) mg/dL Glucose 157 H (74-99) mg/dL Calcium 8.6 (8.4-10.2) mg/dL Total Bilirubin 0.7 (0.2-1.3) mg/dL AST 54 (17-59) U/L ALT 64 H (4-49) U/L Alkaline Phosphatase 147 H (38-126) U/L Total Protein 7.4 (6.3-8.2) g/dL Albumin 3.3 L (3.5-5.0) g/dL - Imaging Chest x-ray: report reviewed, image reviewed CT scan - chest: report reviewed, image reviewed EKG: image reviewed Additional studies: Echocardiogram films reviewed with Dr. Lacy Assessment and Plan Assessment: 1. Moderate to large pericardial effusion without tamponade physiology 2. Small bilateral pleural effusions 3. Shortness of breath with exertion, chest fullness, likely secondary to above 4. Recent STEMI, cardiac catheterization revealed diagonal branch with 70-80% stenosis, dominant right coronary artery with area of plaque rupture in the proximal portion with 30-40% stenosis, and no other significant coronary artery disease 5. History of hyperlipidemia 6. ITP status post splenectomy 7. Ulcerative colitis status post ileostomy 8. Lyme disease 9. Questionable rheumatoid arthritis, patient denies history of 10. Right lung mass along with scattered enlarged mediastinal lymphadenopathy as well as subcarinal lymphadenopathy worked up at [facility] Plan: The patient was seen and examined at the bedside with Dr. Lacy. Echocardiogram performed in Dr. Lacy's presence. The patient is completely hemodynamically stable at this time, no tamponade physiology present on current echocardiogram. Case was discussed between Dr. Lacy and Dr. Gonzalez. Our plan is for pericardial window to be completed by Dr. Allen tomorrow, 04/16/2022. Although felt that surgery is a low yield for diagnosis it may shed some light on the reason for the patient's symptoms, and may potentially relieve some of his shortness of breath. The usual course of surgery was discussed in detail with the patient and his family, risks benefits were reviewed, all questions were answered, and the patient does consent to surgery. He will be nothing by mouth after midnight. Medical management of other comorbidities per internal medicine, cardiology, pulmonology. More recommendations to follow. Thank you for this consult. We will continue to follow along with you and make further recommendations as appropriate. I have personally seen and examined the patient, performed the documentation and the assessment and plan as written. Number of minutes spent on the visit: 30. XIOMY Zuñiga
[2022-04-15] MEDS: ENOXAPARIN 40 MG/0.4 ML SYRINGE SQ SCH (15:24)
--- NOTE | 2022-04-15 16:34 | CA ---
Transthoracic Echo Report Name: Emil Florez Age: 66 Gender: M : 1955 Exam Date: 04/15/2022 13:58 Exam Location: [facility] Ht (in): 69 Wt (lb): 157 Ordering Physician: Quintin Rodriguez MD Attending/Referring Phys: [facility] Vinnie Hernandez RDCS Procedure CPT: Indications: pericardial effusion, eval for tamponade Cardiac Hx: Technical Quality: Good Contrast 1: Total Dose (mL): Contrast 2: Total Dose (mL): MEASUREMENTS (Male / Female) Normal Values M-MODE Aortic Root Diameter MM 3.2 cm LA Systolic Diameter MM 4.1 cm LA Ao Ratio MM 1.3 AV Cusp Separation MM 1.2 cm DOPPLER AV Peak Velocity 139.6 cm/s AV Peak Gradient 7.8 mmHg AI Peak Velocity 443.0 cm/s AI Peak Gradient 78.5 mmHg AI Pressure Half Time 502.9 ms LVOT Peak Velocity 112.4 cm/s LVOT Peak Gradient 5.1 mmHg MR Peak Velocity 214.6 cm/s MR Peak Gradient 18.4 mmHg TR Peak Velocity 209.4 cm/s TR Peak Gradient 17.5 mmHg FINDINGS Left Ventricle Left ventricular hypertrophy. Right Ventricle Normal right ventricular size and function. Right Atrium Normal right atrial size. Left Atrium Mild left atrial dilatation. Mitral Valve Mitral valve thickened. Mild mitral regurgitation. Aortic Valve Trileaflet aortic valve. No aortic regurgitation. No aortic stenosis. Tricuspid Valve Mild tricuspid regurgitation. Pulmonic Valve Structurally normal pulmonic valve. Pericardium Moderate pericardial effusion. No tamponade present Aorta Normal size aortic root and proximal ascending aorta. CONCLUSIONS Moderate to large amount of pericardial effusion without any evidence of tamponade not Previewed by: Dr. Lj Gr MD (Electronically Signed) Final Date: 15 April 2022 16:34
[2022-04-15] MEDS: METOPROLOL TARTRATE 25 MG TAB PO SCH (20:16)
[2022-04-15] MEDS: COLCHICINE 0.6 MG EACH PO SCH (20:17)
--- NOTE | 2022-04-15 22:52 | P.HPIM ---
History of Present Illness H&P Date: 04/15/22 Chief Complaint: Short of breath This is a very pleasant 66-year-old patient who follows with Dr. Markie Oscar. 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 empties his ileostomy every 4-5 times daily.-done at age 27. had COVID initially 2020. Was not hospitalized. In February 2021 treated for pneumonia. In March 2021 patient again had COVID was not hospitalized. Patient managed himself at home. His pulse ox never dropped below 90. Previously had been baseline very active. 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 Was hospitalized in April 2021. Shortness of breath with exertion. Workup at that was negative. Computed tomography scan showed peribronchial bronchial cuffing. Patient now presents with few months of further exertion short of breath. Also gets some chest pressure. Patient has a lung nodule that was worked up at [facility]. Unremarkable. Patient was seen in the office by Dr. Malorie Brown. He gets episodes of chest discomfort. He has lost about 25 pounds in last 2 months. Appetite has been down. Has received steroids and colchicine. Echocardiogram on presentation showed moderate to large pericardial effusion. Was previously diagnosed with Lyme disease and toxoplasmosis. No fever no chills. Review of systems: GEN.: Weight loss decreased appetite EYES: None HEENT: None NECK: None RESPIRATORY: As above CARDIOVASCULAR: As above GASTROINTESTINAL: Ileostomy GENITOURINARY: None MUSCULOSKELETAL: None LYMPHATICS: None HEMATOLOGICAL: None PSYCHIATRY: None NEUROLOGICAL: None Past medical history to include: GERD, hard of hearing, hyperlipidemia, ITP, Lyme disease, ulcerative colitis with total colectomy resultant ileostomy at age of 27, splenectomy. COVID-19 Social history: . 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 EYES: Pupils equal. Conjunctiva normal. HEENT: External appearance of nose and ears normal, oral cavity grossly normal. NECK: JVD not raised; masses not palpable. HEART: First and second heart sounds are normal; no edema. LUNGS: Respiratory rate normal; clear to auscultation. ABDOMEN: Soft, nontender, liver spleen not palpable, no masses palpable. PSYCH: Alert and oriented x3; mood and affect anxious. MUSCULOSKELETAL:No Clubbing/cyanosis;muscles-grossly intact. OA NEUROLOGICAL: Cranial nerves grossly intact; no facial asymmetry, power and sensation grossly intact. LYMPHATICS: No lymph nodes palpable in the axilla and neck INVESTIGATIONS, reviewed in the clinical context: White count 10.8 hemoglobin 13.2 platelets 587 sodium 135 potassium 4.5 BUN for suspected 0.94 AST 54 AST 64 albumin 3.3 EKG tracing personally reviewed by me-normal sinus rhythm. Nonspecific T-wave c hanges. Chest x-ray film personally reviewed by me-cardiac medically. Some scarring possibly 2-D echocardiogram: Mitral valve thickened. Moderate pericardial effusion. No tamponade Assessment and plan: -Moderate pericardial effusion that has been treated with steroids and colchicine. Symptoms have been progressive. No tamponade on echocardiogram. May require pericardial window. Cardiothoracic surgery consulted. -Chronic lung changes on previous computed tomography scan. With peribronchial cuffing. Patient previously had COVID 192. Also history of Lyme disease. Toxoplasmosis. Pulmonary consulted. -GERD Protonix -Chronic hard of hearing -[place] phenomena -History of splenectomy Patient will need his records from [facility]. Consult pulmonary. Cardiothoracic surgery. Cardiology Also consult ID. Resume home medications. Care was discussed with the patient. May consider pericardial biopsy or further determination. Past Medical History Past Medical History: Blood Disorder, Coronary Artery Disease (CAD), GERD/R eflux, Hearing Disorder / Deafness, Hyperlipidemia, Myocardial Infarction (NM) Additional Past Medical History / Comment(s): idiopathic thrombocytopenia; Lyme disease, ulcerative colitis; covid 2, remains unvaccinated History of Any Multi-Drug Resistant Organisms: None Reported Past Surgical History: Bowel Resection, Heart Catheterization, Orthopedic Surgery Additional Past Surgical History / Comment(s): BONE MARROW BX 12/12/13. Hx iliostomy age 15 for ulcerative colitis, Hx carpal tunnel release bilat., repair deviated nasal septum, LAPAROSCOPIC SPLENECTOMY; Nose surgery repair for broken nose. Mass on right lung follow up at [facility] possible carcinoma. Past Anesthesia/Blood Transfusion Reactions: No Reported Reaction Past Psychological History: No Psychological Hx Reported Smoking Status: Never smoker Past Alcohol Use History: Occasional Past Drug Use History: None Reported - Past Family History Mother Family Medical History: Cancer Additional Family Medical History / Comment(s): Mother from ovarian cancer Father Family Medical History: Cancer Additional Family Medical History / Comment(s): Father in his 90s of old age Medications and Allergies Home Medications Medication Instructions Recorded Confirmed Type Colchicine [Colcrys] 0.6 mg PO BID #60 each 03/21/22 04/15/22 Rx Metoprolol Tartrate [Lopressor] 25 mg PO BID #60 tab 03/21/22 04/15/22 Rx HYDROcodone/APAP 5-325MG [[place] 1 tab PO Q4HR PRN 04/15/22 04/15/22 History 5-325] Allergies Allergy/AdvReac Type Severity Reaction Status Date / Time No Known Allergies Allergy Verified 04/15/22 11:57 Physical Exam Vitals: Vital Signs Temp Pulse Pulse Resp BP BP Pulse Ox 04/15/22 20:00 98.4 F 91 16 121/70 97 04/15/22 15:23 88 15 110/61 99 04/15/22 14:22 98 04/15/22 12:44 98.2 F 83 15 107/70 98 04/15/22 12:20 80 17 114/70 99 04/15/22 12:00 80 14 106/80 98 04/15/22 11:30 90 17 111/75 98 04/15/22 11:00 85 21 121/79 99 04/15/22 10:14 97.8 F 93 18 126/73 99 Intake and Output 04/15/22 04/15/22 04/15/22 06:59 14:59 22:59 Intake Total 308 Balance 308 Intake: IV 10 Invasive Line 1 10 Oral 298 Other: Voiding Method Toilet Weight 71.214 kg Results CBC & Chem 7: 04/15/22 10:39 04/15/22 10:39 Labs: Abnormal Lab Results - Last 24 Hours (Table) 04/15/22 04/15/22 Range/Units 10:39 10:39 WBC 10.8 H (3.8-10.6) k/uL Plt Count 587 H (150-450) k/uL Neutrophils # 9.3 H (1.3-7.7) k/uL Lymphocytes # 0.9 L (1.0-4.8) k/uL Sodium 135 L (137-145) mmol/L Carbon Dioxide 21 L (22-30) mmol/L BUN 26 H (9-20) mg/dL Glucose 157 H (74-99) mg/dL ALT 64 H (4-49) U/L Alkaline Phosphatase 147 H (38-126) U/L Albumin 3.3 L (3.5-5.0) g/dL Thrombosis Risk Factor Assmnt - Choose All That Apply Any of the Below Risk Factors Present?: Yes Each Risk Factor Represents 2 Points: Age 61-74 years Thrombosis Risk Factor Assessment Total Risk Factor Score: 2 Thrombosis Risk Factor Assessment Level: Low Risk
[2022-04-16 07:31] LABS: HCT 34.4 % (39.0-53.0); HGB 11.1 gm/dL (13.0-17.5); MCH 29.2 pg (25.0-35.0); MCHC 32.3 g/dL (31.0-37.0); MCV 90.4 fL (80.0-100.0); Mean Platelet Volume 7.1; Platelet Count 630 k/uL (150-450); RDW 14.7 % (11.5-15.5); WBC 9.1 k/uL (3.8-10.6)
--- NOTE | 2022-04-16 08:11 | P.PN ---
Subjective Progress Note Date: 04/16/22 PROGRESS NOTE The patient is a 66 male who was admitted through the emergency room for evaluation of treatment of persistent pericardial effusion. He is followed on a regular basis by Dr. Gr. He presented to the hospital on March 17 with symptoms of chest discomfort that started 2 days prior to admission and had ST elevation predominantly in the inferior leads but diffused. He underwent cardiac catheterization that showed no significant disease. Subsequently his echocardiogram showed evidence of pericardial effusion and he was diagnosed with pericarditis. He was started on colchicine and repeat echocardiogram performed in the office has shown a moderate to severe pericardial effusion with no tamponade. The patient continues to have episodes of chest discomfort as well as dyspnea on exertion. He has no syncope but feels dizzy at times. He has no clear PND or orthopnea. His appetite has been poor and he has lost weight. He has received a course of steroids as an outpatient in addition to his colchicine. His echocardiogram on presentation showed a normal systolic function with mild aortic and tricuspid regurgitation with a moderate to large pericardial effusion. The patient has a prior history of Lyme disease that has been stable and was diagnosed with toxoplasmosis, treated with Bactrim and had a negative testing. His initial diagnosis was in July of last year. He had an abnormal chest x-ray and computed tomography scan of the chest, subsequently underwent a PET scan and was followed at [facility] and according to him repeat CAT scan showed improvement and there was no evidence to suggest malignancy. He has a prior history of ulcerative colitis, post coronary dissection and subsequent splenectomy because of ITP. A computed tomography scan of the chest performed on March 25 showed scattered nonenlarged mediastinal lymph nodes subcarinal adenopathy, the pericardial effusion was noted as well. The patient is a nonsmoker, nondiabetic. April 16: The patient continues to feel dyspneic and fatigue but denies any palpitations or dizziness. His echocardiogram showed moderate to large pericardial effusion but no hemodynamic compromise. He is scheduled to undergo pericardial window today. He was evaluated by the pulmonary service and we are awaiting the prior workup from [facility]. Medications: Colchicine 0.6 mg twice a day, Lopressor 25 mg twice a day PHYSICAL EXAMINATION: Blood pressure 120/70 heart rate 80 LUNGS: Clear to auscultation HEART: Regular rate and rhythm, S1, S2. No S3. systolic ejection murmur ABDOMEN: Soft, nontender, no organomegaly EXTREMETIES: No edema LAB: Pending IMPRESSION: 1. Moderate to large pericardial effusion, persistent, etiology clear 2. Weight loss 3. Abnormal computed tomography scan of the chest 4. History of toxoplasmosis 5. Status post splenectomy 6. History of ulcerative colitis and history of colon resection PLAN: 1. Pericardial window, hopefully the fluid and tissue would be helpful in diagnosis 2. Awaiting the records from [facility] 3. Continue telemetry 4. Depending on his progress further recommendations will be made. Objective - Vital Signs Vital signs: Vital Signs Temp 98.2 F 04/16/22 04:00 Pulse 83 04/16/22 04:00 Resp 16 04/16/22 04:00 BP 120/72 04/16/22 04:00 Pulse Ox 97 04/16/22 04:00 FiO2 Intake & Output 04/15/22 04/16/22 04/16/22 18:59 06:59 18:59 Intake Total 180 436 Balance 180 436 Weight 71.214 kg Intake: IV 20 Invasive Line 1 20 Oral 180 416 Other: Voiding Method Toilet Toilet # Voids 2 - Labs CBC & Chem 7: 04/15/22 10:39 04/15/22 10:39 Labs: Abnormal Lab Results - Last 24 Hours (Table) 04/15/22 04/15/22 Range/Units 10:39 10:39 WBC 10.8 H (3.8-10.6) k/uL Plt Count 587 H (150-450) k/uL Neutrophils # 9.3 H (1.3-7.7) k/uL Lymphocytes # 0.9 L (1.0-4.8) k/uL Sodium 135 L (137-145) mmol/L Carbon Dioxide 21 L (22-30) mmol/L BUN 26 H (9-20) mg/dL Glucose 157 H (74-99) mg/dL ALT 64 H (4-49) U/L Alkaline Phosphatase 147 H (38-126) U/L Albumin 3.3 L (3.5-5.0) g/dL
[2022-04-16 08:16] LABS: African American GFR (CKD) >90 (>60 ml/min/1.73 sqM); Anion Gap 2 mmol/L; Blood Urea Nitrogen 22 mg/dL (9-20); Calcium 8.2 mg/dL (8.4-10.2); Carbon Dioxide 28 mmol/L (22-30); Chloride 105 mmol/L (98-107); Glucose 88 mg/dL (74-99); Non-African American GFR(CKD) 84 (>60 ml/min/1.73 sqM); Potassium 4.4 mmol/L (3.5-5.1); Sodium 135 mmol/L (137-145)
[2022-04-16] MEDS: ENOXAPARIN 40 MG/0.4 ML SYRINGE SQ SCH (08:52)
[2022-04-16] MEDS: METOPROLOL TARTRATE 25 MG TAB PO SCH ×2 (08:52→21:34)
[2022-04-16] MEDS: COLCHICINE 0.6 MG EACH PO SCH ×2 (08:52→21:34)
[2022-04-16] MEDS ORDERED: LACTATED RINGERS 1,000 ML IV ONE (13:17)
[2022-04-16 13:27] VITALS: BMI 22.2
[2022-04-16] MEDS ORDERED: MIDAZOLAM 2 MG/2 ML VIAL IVP ONE (13:44)
[2022-04-16] MEDS ORDERED: DEXAMETHASONE SOD PHOSPHATE 4 MG/ML 1 ML VIAL IVP ONE (14:06)
[2022-04-16] MEDS ORDERED: ONDANSETRON 4 MG/2 ML VIAL IVP ONE (14:06)
[2022-04-16 14:10] LABS: Metamyelocytes # (M) 0.09 k/uL (0); Metamyelocytes % 1 %; Monocytes # (M) 0.46 k/uL (0-1.0); Myelocytes # (M) 0.18 k/uL (0); Myelocytes % 2 %; Neutrophils # (M) 4.55 k/uL (1.3-7.7); Neutrophils % (M) 50 %; Nucleated Red Blood Cells 0 /100 WBC (0-0); Total Cells Counted 200
[2022-04-16] MEDS ORDERED: GLYCOPYRROLATE 0.2 MG/ML 2 ML VIAL ONE (14:45)
[2022-04-16] MEDS ORDERED: MIDAZOLAM 2 MG/2 ML VIAL ONE (14:45)
[2022-04-16] MEDS ORDERED: LIDOCAINE 2% INJ 20 MG/ML (2 ML VIAL) ONE (14:45)
[2022-04-16] MEDS ORDERED: PROPOFOL 10 MG/ML 20 ML VIAL IV ONE (14:45)
[2022-04-16] MEDS ORDERED: SUCCINYLCHOLINE CHLORIDE 200 MG/10 ML VIAL IV ONE (14:45)
[2022-04-16] MEDS ORDERED: NEOSTIGMINE 1 MG/ML 10 ML VIAL ONE (14:45)
[2022-04-16] MEDS ORDERED: ROCURONIUM 10 MG/ML (5 ML VIAL) IV ONE (14:45)
[2022-04-16] MEDS ORDERED: ePHEDrine 50 MG/ML 1 ML VIAL ONE (14:45)
[2022-04-16] MEDS ORDERED: fentaNYL (PF) 50 MCG/ML 2 ML AMP ONE (14:45)
--- NOTE | 2022-04-16 14:52 | P.ANPRN ---
Procedure Note - Anesthesia - Invasive Line Left Arterial Line Time Out Performed: Yes Date of Procedure: 04/16/22 Time of Procedure: 13:36 Location of Patient: PreOp Preparation: Sterile Prep, Sterile Dressing Arterial Line Location: Radial Ultrasound Used: Yes Purpose - Visualization and Identification of Vasculature: Yes Needle Guage: 20 Image Stored and Saved: Yes Narrative: Left radial arterial line under u/s guidance using Seldinger technique.
[2022-04-16] MEDS ORDERED: HYDROmorphone 0.5 MG/0.5 ML SYRINGE IVP ONE ×2 (15:49→16:24)
--- NOTE | 2022-04-16 15:53 | P.OP ---
Date of Procedure: 04/16/22 Preoperative Diagnosis: Chronic pericardial effusion Postoperative Diagnosis: Same Procedure(s) Performed: Sub-xiphoid pericardial window Anesthesia: CHIP Surgeon: Erick Allen Floor Helper #1: Osito Escoto Estimated Blood Loss (ml): 5 Pathology: other (pericardial fluid for cytology,) Condition: stable Disposition: PACU Indications for Procedure: This patient is a 66 year-old male with multiple medical problems including ITP, hx of lyme disease, UC, and STEMI who presented to the hospital from Dr Gr's office with persistent moderate to large pericardial effusion, unclear etiology. He did have some worsening SOB so I recommended pericardial window and the patient was in agreement to proceed. Operative Findings: 450cc of serous inflammatory fluid evacuated from pericardium. Pericardial surface appeared normal without inflammation or chronic calcification. Description of Procedure: The patient was brought to the operating room and placed in the supine position. General anesthesia was induced and the patient chest and abdomen was prepped and draped in the usual sterile fashion. Antibiotics were given. AMMY probe was inserted which revealed some pericardial fluid mostly near the LV. I made a 3cm incision over the xiphoid process and incised it using a scissor. I grasped the pericardium with an rosy and incised the pericardium. I evacuated 450cc of serous inflammatory fluid out. Some was sent for cell count, cytology and culture. I excised a piece of pericardium and sent it for permanent pathology. I left a 19F jennifer in the pericardium along the diaphragmatic and LV surface and c losed in the incision in layers.
--- NOTE | 2022-04-16 16:22 | XR ---
EXAMINATION TYPE: XR chest 1V portable DATE OF EXAM: 04/16/2022 HISTORY: Postop cardiac window COMPARISON: 04/15/2022 TECHNIQUE: Single view of the chest is submitted. FINDINGS: Demonstrated are scattered senescent parenchymal change. There is no evidence for focal infiltrate. The heart is stable. Catheter overlies the left cardiac region. There appears to be small left-sided pleural effusion. No evidence for pneumothorax. Hilar and mediastinal structures are within normal limits. Degenerative changes are seen of the dorsal spine. IMPRESSION: 1. Catheter overlies the left cardiac region. There appears to be small left-sided pleural effusion. No evidence for pneumothorax.
--- NOTE | 2022-04-16 16:40 | P.ANPRN ---
Procedure Note - Anesthesia - AMMY Intraop Pre Bypass AMMY Intraop - Anesthesia Indication: Pericardial effusion Date of Procedure: 04/16/22 Pre-operative Diagnosis: pericardial effusion Post-operative Diagnosis: Same Surgeon: Erick Allen Left Ventricle: EF 40; Moderate pericardial effusion w/ some loculation especially around left ventricle and atrium. Ejection Fraction: Other Regional Wall Motion Abnormalities: None Left Ventricle Hypertrophy: Yes R. Ventricle Function: Normal Anatomy: Trileaflet Aortic Stenosis: None Aortic Regurgitation: Moderate Mitral Stenosis: None Mitral Regurgitation: Trace Tricuspid Stenosis: None Tricuspid Regurgitation: Trace Pulmonic Stenosis: None Pulmonic Regurgitation: None R. Atrial Dilation: No R. Atrial PFO: No L. Atrial Dilation: No Aortic Dissection: No Plural Effusion: None - AMMY Intraop Post Bypass AMMY Intraop Post Bypass Procedure Performed: Pericardial window Left Ventricle: Unchanged. Resolution of pericardial effusion Ejection Fraction: Other Regional Wall Motion Abnormalities: None R. Ventricle Function: Normal Aortic Valve: Unchanged Mitral Valve: Unchanged Tricuspid: Unchanged Pulmonic: Unchanged Aortic Dissection: No (Post procedure AMMY - no bypass)
[2022-04-16] MEDS: HYDROcodone/APAP 5-325MG 1 EACH TAB PO PRN ×2 (17:44→21:35)
--- NOTE | 2022-04-16 18:46 | P.PN ---
Progress Note - Text Progress Note Date: 04/16/22 Chief Complaint: Short of breath This is a very pleasant 66-year-old patient who follows with Dr. Markie Oscar. 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 empties his ileostomy every 4-5 times daily.-done at age 27. had COVID initially 2020. Was not hospitalized. In February 2021 treated for pneumonia. In March 2021 patient again had COVID was not hospitalized. Patient managed himself at home. His pulse ox never dropped below 90. 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 Shortness of breath with exertion. Workup at that was negative. Computed tomography scan showed peribronchial bronchial cuffing. Patient now presents with few months of further exertion short of breath. Also gets some chest pressure. Patient has a lung nodule that was worked up at [facility]. Unremarkable. Patient was seen in the office by Dr. Malorie Brown. He gets episodes of chest discomfort. He has lost about 25 pounds in last 2 months. Appetite has been down. Has received steroids and colchicine. Echocardiogram on presentation showed moderate to large pericardial effusion. Was previously diagnosed with Lyme disease and toxoplasmosis. No fever no chills. April 16: Patient was seen this morning. Going down for pericardial window. This afternoon 350 mL of serous inflammatory fluid evacuated from the pericardium by Dr. Allen/CTS. Pericardial surface appeared normal without inflammation of chronic calcification. Patient is unconscious and. We'll add naproxen. Active Medications Acetaminophen (Acetaminophen Tab 325 Mg Tab) 650 mg PO Q6HR PRN PRN Reason: Mild Pain or Fever > 100.5 Hydrocodone Bitart/Acetaminophen (Hydrocodone/Apap 5-325mg 1 Each Tab) 1 each PO Q4HR PRN PRN Reason: Moderate Breakthrough Pain 4-6 Last Admin: 04/16/22 17:44 Dose: 1 each Calcium Carbonate/Glycine (Calcium Carbonate 500 Mg Chewable) 1,000 mg PO Q4HR PRN PRN Reason: Dyspepsia Colchicine (Colchicine 0.6 Mg Each) 0.6 mg PO BID LEYDI Last Admin: 04/16/22 08:52 Dose: 0.6 mg Enoxaparin Sodium (Enoxaparin 40 Mg/0.4 Ml Syringe) 40 mg SQ DAILY [facility] Last Admin: 04/16/22 08:52 Dose: Not Given Lactulose (Lactulose 20 Gm/30 Ml Cup) 20 gm PO DAILY PRN PRN Reason: Constipation Lorazepam (Lorazepam 0.5 Mg Tab) 0.5 mg PO Q6HR PRN PRN Reason: Anxiety Metoprolol Tartrate (Metoprolol Tartrate 25 Mg Tab) 25 mg PO BID [facility] Last Admin: 04/16/22 08:52 Dose: 25 mg Naloxone HCl (Naloxone 0.4 Mg/Ml 1 Ml Vial) 0.2 mg IV Q2M PRN PRN Reason: Opioid Reversal Naproxen (Naproxen 250 Mg Tab) 250 mg PO BID [facility] Ondansetron HCl (Ondansetron 4 Mg/2 Ml Vial) 4 mg IVP Q8HR PRN PRN Reason: Nausea And Vomiting Temazepam (Temazepam 15 Mg Cap) 15 mg PO HS PRN PRN Reason: Insomnia Last Admin: 04/15/22 22:20 Dose: 15 mg Past medical history to include: GERD, hard of hearing, hyperlipidemia, ITP, Lyme disease, ulcerative colitis with total colectomy resultant ileostomy at age of 27, splenectomy. COVID-19 Social history: . 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 Conjunctiva normal. HEENT: External appearance of nose and ears normal, oral cavity grossly normal. NECK: JVD not raised; masses not palpable. HEART: First and second heart sounds are normal; no edema. LUNGS: Respiratory rate normal; clear to auscultation. ABDOMEN: Soft, nontender, liver spleen not palpable, no masses palpable. PSYCH: Alert and oriented x3; mood and affect anxious. MUSCULOSKELETAL:No Clubbing/cyanosis;muscles-grossly intact. OA INVESTIGATIONS, reviewed in the clinical context: April 16: White count 9.1 hemoglobin 11.1 potassium 4.4 and 22 creatinine 0.94 CRP 8.3 White count 10.8 hemoglobin 13.2 platelets 587 sodium 135 potassium 4.5 BUN for suspected 0.94 AST 54 AST 64 albumin 3.3 EKG tracing personally reviewed by me-normal sinus rhythm. Nonspecific T-wave changes. Chest x-ray film personally reviewed by me-cardiac medically. Some scarring possibly 2-D echocardiogram: Mitral valve thickened. Moderate pericardial effusion. No tamponade Assessment and plan: -Moderate pericardial effusion that has been treated with steroids and colchicine. Symptoms have been progressive. No tamponade on echocardiogram.: Slow to respond Pericardial window created today .350 mL of serous inflammatory fluid evacuated from the pericardium by Dr. Allen/CTS. Pericardial surface appeared normal without inflammation or chronic calcification. Patient on colchicine. Add naproxen.. -Chronic lung changes on previous computed tomography scan. With peribronchial cuffing. Patient previously had COVID 192. Also history of Lyme disease. To xoplasmosis. Follow with pulmonary -GERD Protonix -Chronic hard of hearing -[place] phenomena -History of splenectomy Pericardial window with effusion drainage. Naproxen added. Other medications to continue.
[2022-04-16] MEDS: NAPROXEN 250 MG TAB PO SCH (21:35)
--- NOTE | 2022-04-16 22:04 | P.CONS ---
History of Present Illness - Reason for Consult Consult date: 04/16/22 Persistent pericardial effusion Requesting physician: Jesu Borrero - Chief Complaint Chest pain and shortness of breath x few weeks - History of Present Illness Patient is a 66-year-old male with a past medical history significant for hyperlipidemia he is status post splenectomy ulcerative colitis status post ileostomy, Lyme disease, he was recently admitted at [facility] in the summer of 2021 with a chest pain did have ST elevated SC taken to the cardiac lab and did have a 7080% stenosis of the diagonal branch no intervention done patient did have echocardiogram which did shows large pericardial effusion without tamponade physiology concern was for possible pericarditis likely viral etiology and the patient was treated with the colchicine patient did show improvement initially and was subsequently discharged home patient is now pres enting back to hospital as the patient did have a follow-up echocardiogram completed in the outpatient setting and noticed to have a persistent moderate to severe pericardial effusion for which the patient was advised to go to the hospital, patient denies having any fever or any chills since he has left the hospital, however has been complaining of persistent chest pain is coming to more of a sharp 7-8 out of 10 and radiation with associated shortness of breath on minimal exertion and also palpitation, patient presented to hospital was afebrile and no fever. Recorded subsequently he did have white count of 10.8 with a left shift, kidney function, ALT mildly elevated chest x-ray persistent e nlarged cardiomegaly moderate large effusion trace right effusion infection. Concerned because of persistent pericardial effusion and concern for possible infectious etiology CT surgery has been consulted; pericardial window biopsy and culture this afternoon Review of Systems Positive point has been mentioned in the HPI rest of the systems are negative Past Medical History Past Medical History: Blood Disorder, Coronary Artery Disease (CAD), GERD/Reflux, Hearing Disorder / Deafness, Hyperlipidemia, Myocardial Infarction (SC) Additional Past Medical History / Comment(s): idiopathic thrombocytopenia; Lyme disease, ulcerative colitis; covid 2, remains unvaccinated History of Any Multi-Drug Resistant Organisms: None Reported Past Surgical History: Bowel Resection, Heart Catheterization, Orthopedic Surgery Additional Past Surgical History / Comment(s): BONE MARROW BX 12/12/13. Hx iliostomy age 15 for ulcerative colitis, Hx carpal tunnel release bilat., repair deviated nasal septum, LAPAROSCOPIC SPLENECTOMY; Nose surgery repair for broken nose. Mass on right lung follow up at [facility] possible carcinoma. Past Anesthesia/Blood Transfusion Reactions: No Reported Reaction Past Psychological History: No Psychological Hx Reported Smoking Status: Never smoker Past Alcohol Use History: Occasional Past Drug Use History: None Reported - Past Family History Mother Family Medical History: Cancer Additional Family Medical History / Comment(s): Mother from ovarian cancer Father Family Medical History: Cancer Additional Family Medical History / Comment(s): Father in his 90s of old age Medications and Allergies Home Medications Medication Instructions Recorded Confirmed Type Colchicine [Colcrys] 0.6 mg PO BID #60 each 03/21/22 04/15/22 Rx Metoprolol Tartrate [Lopressor] 25 mg PO BID #60 tab 03/21/22 04/15/22 Rx HYDROcodone/APAP 5-325MG [[place] 1 tab PO Q4HR PRN 04/15/22 04/15/22 History 5-325] Allergies Allergy/AdvReac Type Severity Reaction Status Date / Time No Known Allergies Allergy Verified 04/15/22 11:57 Physical Exam Vitals: Vital Signs Temp Pulse Pulse Resp BP BP Pulse Ox 04/16/22 08:50 97.9 F 70 16 98/63 98 04/16/22 04:00 98.2 F 83 16 120/72 97 04/16/22 00:00 98.2 F 71 16 118/68 96 04/15/22 20:00 98.4 F 91 16 121/70 97 04/15/22 15:23 88 15 110/61 99 04/15/22 14:22 98 04/15/22 12:44 98.2 F 83 15 107/70 98 04/15/22 12:20 80 17 114/70 99 04/15/22 12:00 80 14 106/80 98 04/15/22 11:30 90 17 111/75 98 Intake and Output 04/15/22 04/16/22 04/16/22 22:59 06:59 14:59 Intake Total 488 128 10 Balance 488 128 10 Intake: IV 10 10 10 Invasive Line 1 10 10 10 Oral 478 118 Other: Voiding Method Toilet Toilet Toilet # Voids 2 GENERAL DESCRIPTION: Elderly male lying in bed, no distress. No tachypnea or accessory muscle of respiration use. HEENT: Shows Pallor , no scleral icterus. Oral mucous membrane is dry. No phary ngeal erythema or thrush NECK: Trachea central, no thyromegaly. LUNGS: Unlabored breathing. Clear to auscultation anteriorly. No wheeze or crackle. HEART: S1, S2, regular rate and rhythm. No loud murmur ABDOMEN: Soft, no tenderness , guarding or rigidity, no organomegaly EXTREMITIES: No edema of feet. SKIN: No rash, no masses palpable. NEUROLOGICAL: The patient is awake, alert, oriented x3, mood and affect normal. Results CBC & Chem 7: 04/17/22 06:47 04/17/22 06:47 Labs: Abnormal Lab Results - Last 24 Hours (Table) 04/15/22 04/15/22 04/16/22 Range/Units 10:39 10:39 06:49 WBC 10.8 H (3.8-10.6) k/uL RBC 3.80 L (4.30-5.90) m/uL Hgb 11.1 L (13.0-17.5) gm/dL Hct 34.4 L (39.0-53.0) % Plt Count 587 H 630 H (150-450) k/uL Neutrophils # 9.3 H (1.3-7.7) k/uL Lymphocytes # 0.9 L (1.0-4.8) k/uL Sodium 135 L (137-145) mmol/L Carbon Dioxide 21 L (22-30) mmol/L BUN 26 H (9-20) mg/dL Glucose 157 H (74-99) mg/dL Calcium (8.4-10.2) mg/dL ALT 64 H (4-49) U/L Alkaline Phosphatase 147 H (38-126) U/L Albumin 3.3 L (3.5-5.0) g/dL 04/16/22 Range/Units 06:49 WBC (3.8-10.6) k/uL RBC (4.30-5.90) m/uL Hgb (13.0-17.5) gm/dL Hct (39.0-53.0) % Plt Count (150-450) k/uL Neutrophils # (1.3-7.7) k/uL Lymphocytes # (1.0-4.8) k/uL Sodium 135 L (137-145) mmol/L Carbon Dioxide (22-30) mmol/L BUN 22 H (9-20) mg/dL Glucose (74-99) mg/dL Calcium 8.2 L (8.4-10.2) mg/dL ALT (4-49) U/L Alkaline Phosphatase (38-126) U/L Albumin (3.5-5.0) g/dL Assessment and Plan (1) Pericarditis Status: Acute Code(s): I31.9 - DISEASE OF PERICARDIUM, UNSPECIFIED SNOMED Code(s): 6190002 Plan: 1patient with persistent pericardial effusion and not responding to the anti- inflammatory medication with the colchicine and this patient with no fever does not look toxic no elevated white count clinical suspicion is low for bacterial etiology and the patient is low risk factor for fungal etiology 2-await pericardial window biopsy and cultures scheduled for this afternoon 3-for now will monitor the patient closely off antibiotic therapy We will follow on clinical condition and cultures to further adjust medication if needed Thank you for this consultation will follow this patient with you Time with Patient: Greater than 30
[2022-04-17] MEDS: HYDROcodone/APAP 5-325MG 1 EACH TAB PO PRN ×2 (02:25→20:10)
[2022-04-17 03:35] LABS: Appearance,BF Turbid
--- NOTE | 2022-04-17 07:14 | XR ---
EXAMINATION TYPE: XR chest 1V portable DATE OF EXAM: 04/17/2022 COMPARISON: 04/16/2022 INDICATION: Postop cardiac window TECHNIQUE: Single frontal view of the chest is obtained. FINDINGS: The heart size is mildly prominent. The pulmonary vasculature is normal. Left basilar catheter is present, unchanged. There is mild infiltrate along the periphery of the right costophrenic angle. Small amount of pleural effusion may be present on the left. IMPRESSION: 1. Mild right costophrenic angle subsegmental atelectasis. 2. Small left pleural effusion unchanged. 3. Left basilar catheter.
[2022-04-17 08:26] LABS: African American GFR (CKD) >90 (>60 ml/min/1.73 sqM); Anion Gap 6 mmol/L; Blood Urea Nitrogen 29 mg/dL (9-20); Calcium 8.4 mg/dL (8.4-10.2); Carbon Dioxide 24 mmol/L (22-30); Chloride 103 mmol/L (98-107); Glucose 146 mg/dL (74-99); Non-African American GFR(CKD) 82 (>60 ml/min/1.73 sqM); Potassium 4.8 mmol/L (3.5-5.1); Sodium 133 mmol/L (137-145)
[2022-04-17 08:46] LABS: HCT 36.3 % (39.0-53.0); HGB 11.8 gm/dL (13.0-17.5); MCH 29.2 pg (25.0-35.0); MCHC 32.4 g/dL (31.0-37.0); MCV 90.1 fL (80.0-100.0); Mean Platelet Volume 7.6; Platelet Count 642 k/uL (150-450); RBC 4.03 m/uL (4.30-5.90); RDW 14.7 % (11.5-15.5); WBC 7.6 k/uL (3.8-10.6)
[2022-04-17] MEDS: ENOXAPARIN 40 MG/0.4 ML SYRINGE SQ SCH (08:55)
[2022-04-17] MEDS: NAPROXEN 250 MG TAB PO SCH ×2 (08:56→20:10)
[2022-04-17] MEDS: COLCHICINE 0.6 MG EACH PO SCH ×2 (08:56→20:11)
[2022-04-17] MEDS: METOPROLOL TARTRATE 25 MG TAB PO SCH ×2 (08:58→20:10)
--- NOTE | 2022-04-17 10:21 | P.PN ---
Subjective Progress Note Date: 04/17/22 HISTORY OF PRESENT ILLNESS: The patient is a 66 male who was admitted through the emergency room for evaluation of treatment of persistent pericardial effusion. He is followed on a regular basis by Dr. Gr. He presented to the hospital on March 17 with symptoms of chest discomfort that started 2 days prior to admission and had ST elevation predominantly in the inferior leads but diffused. He underwent cardiac catheterization that showed no significant disease. Subsequently his echocardiogram showed evidence of pericardial effusion and he was diagnosed with pericarditis. He was started on colchicine and repeat echocardiogram performed in the office has shown a moderate to severe pericardial effusion with no tamponade. The patient continues to have episodes of chest discomfort as well as dyspnea on exertion. He has no syncope but feels dizzy at times. He has no clear PND or orthopnea. His appetite has been poor and he has lost weight. He has received a course of steroids as an outpatient in addition to his colchicine. His echocardiogram on presentation showed a normal systolic function with mild aortic and tricuspid regurgitation with a moderate to large pericardial effusion. The patient has a prior history of Lyme disease that has been stable and was diagnosed with toxoplasmosis, treated with Bactrim and had a negative testing. His initial diagnosis was in July of last year. He had an abnormal chest x-ray and computed tomography scan of the chest, subsequently underwent a PET scan and was followed at [facility] and according to him repeat CAT scan showed improvement and there was no evidence to suggest malignancy. He has a prior history of ulcerative colitis, post coronary dissection and subsequent splenectomy because of ITP. A computed tomography scan of the chest performed on March 25 showed scattered nonenlarged me diastinal lymph nodes subcarinal adenopathy, the pericardial effusion was noted as well. The patient is a nonsmoker, nondiabetic. April 16: The patient continues to feel dyspneic and fatigue but denies any palpitations or dizziness. His echocardiogram showed moderate to large pericardial effusion but no hemodynamic compromise. He is scheduled to undergo pericardial window today. He was evaluated by the pulmonary service and we are awaiting the prior workup from [facility]. 04/17/2022 Patient examined this morning at the bedside. He is status post pericardial window with removal of 450 mL of fluid. Patient denies chest pain or pressure. He denies shortness of breath. Vital signs are stable. Telemetry reveals sinus mechanism. Records from [facility] reviewed by Dr. Gonzalez. PHYSICAL EXAM: VITAL SIGNS: Reviewed. GENERAL: Well-developed in no acute distress. NECK: Supple. No JVD or thyromegaly LUNGS: Respirations even and unlabored. Lungs essentially clear to auscultation bilaterally. HEART: Regular rate and rhythm. S1 and S2 heard. EXTREMITIES: Normal range of motion. No clubbing or cyanosis. Peripheral pulses intact. No lower extremity edema ASSESSMENT: 1. Moderate to large pericardial effusion, persistent, etiology clear 2. Weight loss 3. Abnormal computed tomography scan of the chest 4. History of toxoplasmosis 5. Status post splenectomy 6. History of ulcerative colitis and history of colon resection PLAN: Await fluid cytology results Await pathology from pericardium Continue postoperative management per cardiothoracic surgery Patient is currently stable from a cardiac standpoint Patient to follow up outpatient with Dr. Gr Nurse practitioner note has been reviewed by physician. Signing provider agrees with the documented findings, assessment, and plan of care. Objective - Vital Signs Vital signs: Vital Signs Temp 97.6 F 04/17/22 03:39 Pulse 67 04/17/22 03:39 Resp 18 04/17/22 03:39 BP 121/68 04/17/22 03:39 Pulse Ox 98 04/17/22 07:49 FiO2 Intake & Output 04/16/22 04/17/22 04/17/22 18:59 06:59 18:59 Intake Total 960 Output Total 38 330 Balance 922 -330 Weight 70.307 kg 68.7 kg Intake: IV 960 Invasive Line 1 10 Oral 0 Output: Chest Tube Drainage 30 Chest Tube 30 Drainage 33 Chest 33 Urine 300 Estimated Blood Loss 5 Other: Voiding Method Toilet Toilet # Voids 2 - Labs CBC & Chem 7: 04/17/22 06:47 04/17/22 06:47 Labs: Abnormal Lab Results - Last 24 Hours (Table) 04/15/22 04/16/22 04/16/22 Range/Units 16:39 06:44 06:49 RBC (4.30-5.90) m/uL Hgb (13.0-17.5) gm/dL Hct (39.0-53.0) % Plt Count (150-450) k/uL Eosinophils # (Manual) 1.00 H (0-0.7) k/uL Metamyelocytes # (Man) 0.09 H (0) k/uL Myelocytes # (Manual) 0.18 H (0) k/uL ESR 69 H (0-15) mm/hr Sodium (137-145) mmol/L BUN (9-20) mg/dL Glucose (74-99) mg/dL C-Reactive Protein (<1.0) mg/dL Blood Bank Comment Sent to [facility] A 04/16/22 04/17/22 04/17/22 Range/Units 06:49 06:47 06:47 RBC 4.03 L (4.30-5.90) m/uL Hgb 11.8 L (13.0-17.5) gm/dL Hct 36.3 L (39.0-53.0) % Plt Count 642 H (150-450) k/uL Eosinophils # (Manual) (0-0.7) k/uL Metamyelocytes # (Man) (0) k/uL Myelocytes # (Manual) (0) k/uL ESR (0-15) mm/hr Sodium 133 L (137-145) mmol/L BUN 29 H (9-20) mg/dL Glucose 146 H (74-99) mg/dL C-Reactive Protein 8.3 H (<1.0) mg/dL Blood Bank Comment Microbiology - Last 24 Hours (Table) 04/16/22 15:21 Anaerobic Culture - Preliminary Pericardial Fluid 04/16/22 15:21 Fungal Culture - Preliminary Pericardial Fluid 04/16/22 15:21 Acid Fast Bacilli Culture - Preliminary Pericardial Fluid 04/16/22 15:21 Body Fluid Culture - Preliminary Pericardial Fluid 04/16/22 15:21 Gram Stain - Preliminary Other - Other Wound Culture - Preliminary 04/16/22 15:21 Fungal Culture - Preliminary Pericardial Fluid 04/16/22 15:21 Acid Fast Bacilli Culture - Preliminary Pericardial Fluid 04/16/22 15:21 Anaerobic Culture - Preliminary Pericardial Fluid
--- NOTE | 2022-04-17 13:21 | P.PN ---
Subjective Progress Note Date: 04/17/22 66-year-old male patient hospitalized for a large pericardial effusion and ongoing shortness of breath. This is not a real finding as the pericardial effusion was seen in the earlier CAT scan of the chest that was done on 03/25/2022. Based on the CAT scan findings from the same date, the patient a large pericardial effusion along with scattered enlarged mediastinal lymphadenopathy largest in the AP window and in the right paratracheal area and those were present back in June 2021 and the remaining essentially unchanged. There was also subcarinal lymphadenopathy measuring 2.4 cm in size slightly increased in size and there was interval development of small bilateral pleural effusions and some increased interstitial changes in lung bases bilaterally. The patient has already had previous evaluations and [facility] in this regard. Previous PET scan was also done and [facility].the PET scan that was done in January 2022 The patient is seen today 04/17/2022 of follow-up on the selective care unit. Sitting up in bed. Awake and alert in no acute distress. Maintaining good O2 saturations in the mid to upper 90s on room air. Afebrile. Hemodynamically stable. Yesterday he had undergone a subxiphoid pericardial window for a significant pericardial effusion. 450 mL of serous inflammatory fluid was evacuated from the pericardium. A 19-Persian Erick tube remained in place. An additional 30 ML's returned today. Fluid cultures and pathology pending. Chest x-ray reveals a mild right costophrenic angle subsegmental atelectasis. Small left pleural effusion. White count 7.6. Hemoglobin 11.8. Sodium 133. Potassium 4.8. Bicarb 24. BUN 29. Creatinine 0.96. Glucose 146. He is continuing on cefazolin. Colchicine. Lovenox for DVT prophylaxis. Objective - Vital Signs Vital signs: Vital Signs Temp 98.1 F 04/17/22 12:00 Pulse 55 L 04/17/22 12:00 Resp 16 04/17/22 12:00 BP 106/61 04/17/22 12:00 Pulse Ox 98 04/17/22 12:00 FiO2 Intake & Output 04/16/22 04/17/22 04/17/22 18:59 06:59 18:59 Intake Total 960 100 Output Total 38 330 200 Balance 922 -330 -100 Weight 70.307 kg 68.7 kg Intake: IV 960 Invasive Line 1 10 Oral 0 100 Output: Chest Tube Drainage 30 Chest Tube 30 Drainage 33 Chest 33 Urine 300 200 Estimated Blood Loss 5 Other: Voiding Method Toilet Toilet Toilet # Voids 2 1 - Exam GENERAL EXAM: Alert, active, pleasant 66-year-old male patient, and repair, comfortable in no apparent distress. HEAD: Normocephalic. EYES: Normal reaction of pupils, equal size. NOSE: Clear with pink turbinates. THROAT: No erythema or exudates. NECK: No masses, no JVD. CHEST: No chest wall deformity. Mediastinal BRIGHT drain remains in place LUNGS: Equal air entry with no crackles, wheeze, rhonchi or dullness. CVS: S1 and S2 normal with no audible murmur, regular rhythm. ABDOMEN: No hepatosplenomegaly, normal bowel sounds, no guarding or rigidity. SPINE: No scoliosis or deformity SKIN: No rashes CENTRAL NERVOUS SYSTEM: No focal deficits, tone is normal in all 4 extremities. EXTREMITIES: There is no peripheral edema. No clubbing, no cyanosis. Peripheral pulses are intact. - Labs CBC & Chem 7: 04/17/22 06:47 04/17/22 06:47 Labs: Abnormal Lab Results - Last 24 Hours (Table) 04/16/22 04/16/22 04/16/22 Range/Units 06:44 06:49 06:49 RBC (4.30-5.90) m/uL Hgb (13.0-17.5) gm/dL Hct (39.0-53.0) % Plt Count (150-450) k/uL Eosinophils # (Manual) 1.00 H (0-0.7) k/uL Metamyelocytes # (Man) 0.09 H (0) k/uL Myelocytes # (Manual) 0.18 H (0) k/uL ESR 69 H (0-15) mm/hr Sodium (137-145) mmol/L BUN (9-20) mg/dL Glucose (74-99) mg/dL C-Reactive Protein 8.3 H (<1.0) mg/dL 04/17/22 04/17/22 Range/Units 06:47 06:47 RBC 4.03 L (4.30-5.90) m/uL Hgb 11.8 L (13.0-17.5) gm/dL Hct 36.3 L (39.0-53.0) % Plt Count 642 H (150-450) k/uL Eosinophils # (Manual) (0-0.7) k/uL Metamyelocytes # (Man) (0) k/uL Myelocytes # (Manual) (0) k/uL ESR (0-15) mm/hr Sodium 133 L (137-145) mmol/L BUN 29 H (9-20) mg/dL Glucose 146 H (74-99) mg/dL C-Reactive Protein (<1.0) mg/dL Microbiology - Last 24 Hours (Table) 04/16/22 15:21 Anaerobic Culture - Preliminary Pericardial Fluid 04/16/22 15:21 Fungal Culture - Preliminary Pericardial Fluid 04/16/22 15:21 Acid Fast Bacilli Culture - Preliminary Pericardial Fluid 04/16/22 15:21 Body Fluid Culture - Preliminary Pericardial Fluid 04/16/22 15:21 Gram Stain - Preliminary Other - Other Wound Culture - Preliminary 04/16/22 15:21 Fungal Culture - Preliminary Pericardial Fluid 04/16/22 15:21 Acid Fast Bacilli Culture - Preliminary Pericardial Fluid 04/16/22 15:21 Anaerobic Culture - Preliminary Pericardial Fluid Assessment and Plan Assessment: Dyspnea, secondary to a large pericardial effusion with a recent history of pericarditis. No physiologic evidence of tamponade. Status post subxiphoid pericardial window with 450 mL of serous inflammatory fluid evacuated. Postoperative day #1. BRIGHT drain remains in place. Bilateral small pleural effusions Mediastinal lymphadenopathy involving the paratracheal subcarinal and AP window area. Based on the previous PET/CT, there was some metabolic activity within the mediastinum Coronary artery disease, please refer to the cardiac catheterization report from 2021 Chronic interstitial change in lung bases bilaterally, rule out underlying ILD, being evaluated [facility]. History of Lyme disease, treated History of toxoplasma infection, treated History of ITP, post splenectomy, platelet counts are normal History of ulcerative colitis and the patient has had previous bowel surgery and the patient has ileostomy Positive AMMY and rheumatoid factor Previous history of Covid 19 infection 2, no vaccination Plan: The patient was seen and evaluated Chest x-ray labs and medications reviewed Currently stable and on room air Mediastinal BRIGHT drain remains in place Pericardial fluid cultures and pathology pending Remains on cefazolin, colchicine We will continue to follow I have personally seen and examined the patient, performed the documentation and the assessment and plan as written. Number of minutes spent on the visit: 10.
--- NOTE | 2022-04-17 13:59 | P.PN ---
Subjective Progress Note Date: 04/17/22 Principal diagnosis: Chronic pericardial effusion. Past medical history significant for pericarditis, treated with colchicine and steroids, hyperlipidemia, ITP status post splenectomy, ulcerative colitis status post ileostomy, Lyme disease, chart states rheumatoid arthritis however patient denies history of rheumatoid arthritis, right lung mass worked up at [facility]. He presented to [facility] in February 2022 with chest pain, he was diagnosed with a S CHRISTOPHE and taken to the [facility] which demonstrated a diagonal branch with 70-80% stenosis, dominant right coronary artery with area of plaque rupture in the proximal portion with 30-40% stenosis, and no other significant coronary artery disease. POD #1 Sub-xiphoid pericardial window. The patient was seen and examined in follow-up today at his bedside on the cardiac stepdown unit. He is lying in bed, is awake, alert, oriented 3 and is in no acute apparent distress. Denies any complaints of pain or shortness of breath at this time and states that he feels like his breathing is much improved since the pericardial window procedure yesterday. Oxygen saturation are 98% on room air and he is achieving around 9449-8019 mL on his incentive spirometry with encouragement. Subxiphoid chest tube remains in place to low continuous wall suction -20 cm H2O. No air leak is present. Draining thin serosanguineous drainage with 100 mL output since the pericardial window procedure yesterday. Remote telemetry showing normal sinus rhythm heart rate 65 BPM. Patient has been afebrile the last 24 hours. Pericardial fluid cultures and cytology cytology remains pending. Objective - Vital Signs Vital signs: Vital Signs Temp 98.1 F 04/17/22 12:00 Pulse 55 L 04/17/22 12:00 Resp 16 04/17/22 12:00 BP 106/61 04/17/22 12:00 Pulse Ox 98 04/17/22 12:00 FiO2 Intake & Output 04/16/22 04/17/22 04/17/22 18:59 06:59 18:59 Intake Total 960 218 Output Total 38 330 200 Balance 922 -330 18 Weight 70.307 kg 68.7 kg Intake: IV 960 Invasive Line 1 10 Oral 0 218 Output: Chest Tube Drainage 30 Chest Tube 30 Drainage 33 Chest 33 Urine 300 200 Estimated Blood Loss 5 Other: Voiding Method Toilet Toilet Toilet # Voids 2 1 - Allied health notes Allied health notes reviewed: nursing - Labs CBC & Chem 7: 04/17/22 06:47 04/17/22 06:47 Labs: Abnormal Lab Results - Last 24 Hours (Table) 04/16/22 04/16/22 04/16/22 Range/Units 06:44 06:49 06:49 RBC (4.30-5.90) m/uL Hgb (13.0-17.5) gm/dL Hct (39.0-53.0) % Plt Count (150-450) k/uL Eosinophils # (Manual) 1.00 H (0-0.7) k/uL Metamyelocytes # (Man) 0.09 H (0) k/uL Myelocytes # (Manual) 0.18 H (0) k/uL ESR 69 H (0-15) mm/hr Sodium (137-145) mmol/L BUN (9-20) mg/dL Glucose (74-99) mg/dL C-Reactive Protein 8.3 H (<1.0) mg/dL 04/17/22 04/17/22 Range/Units 06:47 06:47 RBC 4.03 L (4.30-5.90) m/uL Hgb 11.8 L (13.0-17.5) gm/dL Hct 36.3 L (39.0-53.0) % Plt Count 642 H (150-450) k/uL Eosinophils # (Manual) (0-0.7) k/uL Metamyelocytes # (Man) (0) k/uL Myelocytes # (Manual) (0) k/uL ESR (0-15) mm/hr Sodium 133 L (137-145) mmol/L BUN 29 H (9-20) mg/dL Glucose 146 H (74-99) mg/dL C-Reactive Protein (<1.0) mg/dL Microbiology - Last 24 Hours (Table) 04/16/22 15:21 Anaerobic Culture - Preliminary Pericardial Fluid 04/16/22 15:21 Fungal Culture - Preliminary Pericardial Fluid 04/16/22 15:21 Acid Fast Bacilli Culture - Preliminary Pericardial Fluid 04/16/22 15:21 Body Fluid Culture - Preliminary Pericardial Fluid 04/16/22 15:21 Gram Stain - Preliminary Other - Other Wound Culture - Preliminary 04/16/22 15:21 Fungal Culture - Preliminary Pericardial Fluid 04/16/22 15:21 Acid Fast Bacilli Culture - Preliminary Pericardial Fluid 04/16/22 15:21 Anaerobic Culture - Preliminary Pericardial Fluid - Imaging and Cardiology Chest x-ray: report reviewed, image reviewed Assessment and Plan Assessment: 1. Chronic pericardial effusion without tamponade physiology, status post subxiphoid pericardial window 2. Small bilateral pleural effusions 3. Shortness of breath with exertion, chest fullness, likely secondary to above 4. Recent STEMI, cardiac catheterization revealed diagonal branch with 70-80% stenosis, dominant right coronary artery with area of plaque rupture in the proximal portion with 30-40% stenosis, and no other significant coronary artery disease 5. History of hyperlipidemia 6. ITP status post splenectomy 7. Ulcerative colitis status post ileostomy 8. Lyme disease 9. Questionable rheumatoid arthritis, patient denies history 10. Right lung mass along with scattered enlarged mediastinal lymphadenopathy as well as subcarinal lymphadenopathy worked up at [facility] Plan: 1. Keep subxiphoid chest tube in place to low continuous wall suction -20 cm H2O for another 24 hours. May remove chest tube from suction when ambulating. 2. Continue to monitor daily chest x-rays. 3. Continue to follow pericardial fluid cytology and culture results. 4. Increase activity as tolerated. Out of bed for all meals. Ambulate as tolerated. 5. Encourage use of his incentive spirometry 10 times every hour while he is awake. 6. Medical management of her comorbidities per primary care service. 7. More recommendations follow based on patient's clinical course. Time with Patient: Greater than 30
--- NOTE | 2022-04-17 14:41 | P.PN ---
Progress Note - Text Progress Note Date: 04/17/22 Chief Complaint: Short of breath This is a very pleasant 66-year-old patient who follows with Dr. Markie Oscar. 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 empties his ileostomy every 4-5 times daily.-done at age 27. had COVID initially 2020. Was not hospitalized. In February 2021 treated for pneumonia. In March 2021 patient again had COVID was not hospitalized. Patient managed himself at home. His pulse ox never dropped below 90. Previously had been baseline very active. 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 Was hospitalized in April 2021. Shortness of breath with exertion. Workup at that was negative. Computed tomography scan showed peribronchial bronchial cuffing. Patient now presents with few months of further exertion short of breath. Also gets some chest pressure. Patient has a lung nodule that was worked up at [facility]. Unremarkable. Patient was seen in the office by Dr. Malorie Brown. He gets episodes of chest discomfort. He has lost about 25 pounds in last 2 months. Appetite has been down. Has received steroids and colchicine. Echocardiogram on presentation showed moderate to large pericardial effusion. Was previously diagnosed with Lyme disease and toxoplasmosis. No fever no chills. April 16: Patient was seen this morning. Going down for pericardial window. This afternoon 350 mL of serous inflammatory fluid evacuated from the pericardium by Dr. Allen/CTS. Pericardial surface appeared normal without inflammation of chronic calcification. . We'll add naproxen. April 17: Sitting up. More comfortable. Breathing better. Pericardial drain in place. Awaiting results. Discussed with the patient and at the bedside. On IV Ancef, colchicine, naproxen. Cultures pending Active Medications Acetaminophen (Acetaminophen Tab 325 Mg Tab) 650 mg PO Q6HR PRN PRN Reason: Mild Pain or Fever > 100.5 Hydrocodone Bitart/Acetaminophen (Hydrocodone/Apap 5-325mg 1 Each Tab) 1 each PO Q4HR PRN PRN Reason: Moderate Breakthrough Pain 4-6 Last Admin: 04/17/22 02:25 Dose: 1 each Calcium Carbonate/Glycine (Calcium Carbonate 500 Mg Chewable) 1,000 mg PO Q4HR PRN PRN Reason: Dyspepsia Colchicine (Colchicine 0.6 Mg Each) 0.6 mg PO BID [facility] Last Admin: 04/17/22 08:56 Dose: 0.6 mg Enoxaparin Sodium (Enoxaparin 40 Mg/0.4 Ml Syringe) 40 mg SQ DAILY [facility] Last Admin: 04/17/22 08:55 Dose: 40 mg Cefazolin Sodium 2 gm/ Sodium (Chloride) 50 mls @ 100 mls/hr IVPB Q8HR [facility]; Protocol Stop: 04/17/22 16:29 Last Admin: 04/17/22 10:00 Dose: 100 mls/hr Lactulose (Lactulose 20 Gm/30 Ml Cup) 20 gm PO DAILY PRN PRN Reason: Constipation Lorazepam (Lorazepam 0.5 Mg Tab) 0.5 mg PO Q6HR PRN PRN Reason: Anxiety Metoprolol Tartrate (Metoprolol Tartrate 25 Mg Tab) 25 mg PO BID [facility] Last Admin: 04/17/22 08:58 Dose: 25 mg Naloxone HCl (Naloxone 0.4 Mg/Ml 1 Ml Vial) 0.2 mg IV Q2M PRN PRN Reason: Opioid Reversal Naproxen (Naproxen 250 Mg Tab) 250 mg PO BID [facility] Last Admin: 04/17/22 08:56 Dose: 250 mg Ondansetron HCl (Ondansetron 4 Mg/2 Ml Vial) 4 mg IVP Q8HR PRN PRN Reason: Nausea And Vomiting Temazepam (Temazepam 15 Mg Cap) 15 mg PO HS PRN PRN Reason: Insomnia Last Admin: 04/15/22 22:20 Dose: 15 mg Past medical history to include: GERD, hard of hearing, hyperlipidemia, ITP, Lyme disease, ulcerative colitis with total colectomy resultant ileostomy at age of 27, splenectomy. COVID-19 Social history: . 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 Conjunctiva normal. HEENT: External appearance of nose and ears normal, oral cavity grossly normal. NECK: JVD not raised; masses not palpable. HEART: First and second heart sounds are normal; no edema. Pericardial window with drain LUNGS: Respiratory rate normal; clear to auscultation. ABDOMEN: Soft, nontender, liver spleen not palpable, no masses palpable. PSYCH: Alert and oriented x3; mood and affect anxious. MUSCULOSKELETAL:No Clubbing/cyanosis;muscles-grossly intact. OA INVESTIGATIONS, reviewed in the clinical context: April 17: White count 7.6 hemoglobin 11.8 platelets 642 potassium 4.8 creatinine 0.96 April 16: White count 9.1 hemoglobin 11.1 potassium 4.4 and 22 creatinine 0.94 CRP 8.3 White count 10.8 hemoglobin 13.2 platelets 587 sodium 135 potassium 4.5 BUN for suspected 0.94 AST 54 AST 64 albumin 3.3 EKG tracing personally reviewed by me-normal sinus rhythm. Nonspecific T-wave changes. Chest x-ray film personally reviewed by me-cardiac medically. Some scarring possibly 2-D echocardiogram: Mitral valve thickened. Moderate pericardial effusion. No tamponade Assessment and plan: -Moderate pericardial effusion that has been treated with steroids and colchicine. Symptoms have been progressive. No tamponade on echocardiogram.: Slow to respond Pericardial window created-.350 mL of serous inflammatory fluid evacuated from the pericardium by Dr. Allen/CTS. Pericardial surface appeared normal without inflammation or chronic calcification. IV Ancef, colchicine. naproxen.. Follow with cardiology and, ID -Chronic lung changes on previous computed tomography scan. With peribronchial cuffing. Patient previously had COVID 192. Also history of Lyme disease. Toxoplasmosis. Follow with pulmonary -GERD Protonix -Chronic hard of hearing -[place]'s phenomena -History of splenectomy Discussed.
--- NOTE | 2022-04-17 22:23 | P.PN ---
Subjective Progress Note Date: 04/17/22 Principal diagnosis: Pericardial effusion Patient is a 66-year-old male with a past medical history significant for hyperlipidemia he is status post splenectomy ulcerative colitis status post ileostomy, Lyme disease, he was recently admitted at [facility] and diagnosed with pericardial effusion that did not respond to the colchicine and subsequently readmitted with persistent pericardial effusion in this patient who is status post pericardial window drainage of the pericardial fluid cultures completed on 04/16/2022 On today's evaluation that is 04/17/2022 patient denies having any fever or any chills, patient is feeling slightly better, the patient is breathing comfortably on room air, the patient chest pain has decreased in intensity no nausea no vomiting and no diarrhea Objective - Vital Signs Vital signs: Vital Signs Temp 98.2 F 04/17/22 08:00 Pulse 64 04/17/22 08:00 Resp 17 04/17/22 08:00 BP 125/66 04/17/22 08:00 Pulse Ox 95 04/17/22 08:00 FiO2 Intake & Output 04/16/22 04/17/22 04/17/22 18:59 06:59 18:59 Intake Total 960 Output Total 38 330 Balance 922 -330 Weight 70.307 kg 68.7 kg Intake: IV 960 Invasive Line 1 10 Oral 0 Output: Chest Tube Drainage 30 Chest Tube 30 Drainage 33 Chest 33 Urine 300 Estimated Blood Loss 5 Other: Voiding Method Toilet Toilet Toilet # Voids 2 - Exam GENERAL DESCRIPTION: An elderly male lying in bed in no distress RESPIRATORY SYSTEM: Unlabored breathing , decreased breath sounds at bases HEART: S1 S2 regular rate and rhythm , ABDOMEN: Soft , no tenderness EXTREMITIES: No edema feet - Labs CBC & Chem 7: 04/17/22 06:47 04/17/22 06:47 Labs: Abnormal Lab Results - Last 24 Hours (Table) 04/15/22 04/16/22 04/16/22 Range/Units 16:39 06:44 06:49 RBC (4.30-5.90) m/uL Hgb (13.0-17.5) gm/dL Hct (39.0-53.0) % Plt Count (150-450) k/uL Eosinophils # (Manual) 1.00 H (0-0.7) k/uL Metamyelocytes # (Man) 0.09 H (0) k/uL Myelocytes # (Manual) 0.18 H (0) k/uL ESR 69 H (0-15) mm/hr Sodium (137-145) mmol/L BUN (9-20) mg/dL Glucose (74-99) mg/dL C-Reactive Protein (<1.0) mg/dL Blood Bank Comment Sent to [facility] A 04/16/22 04/17/22 04/17/22 Range/Units 06:49 06:47 06:47 RBC 4.03 L (4.30-5.90) m/uL Hgb 11.8 L (13.0-17.5) gm/dL Hct 36.3 L (39.0-53.0) % Plt Count 642 H (150-450) k/uL Eosinophils # (Manual) (0-0.7) k/uL Metamyelocytes # (Man) (0) k/uL Myelocytes # (Manual) (0) k/uL ESR (0-15) mm/hr Sodium 133 L (137-145) mmol/L BUN 29 H (9-20) mg/dL Glucose 146 H (74-99) mg/dL C-Reactive Protein 8.3 H (<1.0) mg/dL Blood Bank Comment Microbiology - Last 24 Hours (Table) 04/16/22 15:21 Anaerobic Culture - Preliminary Pericardial Fluid 04/16/22 15:21 Fungal Culture - Preliminary Pericardial Fluid 04/16/22 15:21 Acid Fast Bacilli Culture - Preliminary Pericardial Fluid 04/16/22 15:21 Body Fluid Culture - Preliminary Pericardial Fluid 04/16/22 15:21 Gram Stain - Preliminary Other - Other Wound Culture - Preliminary 04/16/22 15:21 Fungal Culture - Preliminary Pericardial Fluid 04/16/22 15:21 Acid Fast Bacilli Culture - Preliminary Pericardial Fluid 04/16/22 15:21 Anaerobic Culture - Preliminary Pericardial Fluid Assessment and Plan (1) Pericardial effusion Current Visit: Yes Status: Acute Code(s): I31.39 - OTHER PERICARDIAL EFFUSION (NONINFLAMMATORY) SNOMED Code(s): 529305234 Plan: 1patient with persistent pericardial effusion and not responding to the anti- inflammatory medication with the colchicine and this patient with no fever does not look toxic no elevated white count clinical suspicion is low for bacterial etiology and the patient is low risk factor for fungal etiology 2Patient is pericardial window biopsy and cultures which are currently pending 3Patient is afebrile and doesn't look toxic will monitor the patient closely off antibiotic therapy Time with Patient: Less than 30
--- NOTE | 2022-04-18 07:27 | XR ---
EXAMINATION TYPE: XR chest 1V portable DATE OF EXAM: 04/18/2022 6:19 AM COMPARISON: Chest radiograph from one day prior. TECHNIQUE: XR chest 1V portable Portable AP radiograph of the chest. CLINICAL INDICATION:Male, 66 years old with history of s/p subxiphoid pericardial window; FINDINGS: Lungs/Pleura: Bibasilar atelectasis is present. No evidence of focal consolidation or pneumothorax. B lunting of the costophrenic angles is present. Pulmonary vascularity: Unremarkable. Heart/mediastinum: Cardiomediastinal silhouette is unremarkable. Musculoskeletal: No acute osseous pathology. IMPRESSION: Similar bibasilar atelectasis with suspected small bilateral pleural effusions.
[2022-04-18] MEDS: NAPROXEN 250 MG TAB PO SCH (08:49)
[2022-04-18] MEDS: METOPROLOL TARTRATE 25 MG TAB PO SCH (08:49)
[2022-04-18] MEDS: COLCHICINE 0.6 MG EACH PO SCH (08:50)
[2022-04-18] MEDS: ENOXAPARIN 40 MG/0.4 ML SYRINGE SQ SCH (08:50)
[2022-04-18 08:57] VITALS: TEMP 98.1
--- NOTE | 2022-04-18 12:19 | P.PN ---
Subjective Progress Note Date: 04/18/22 66-year-old male patient hospitalized for a large pericardial effusion and ongoing shortness of breath. This is not a real finding as the pericardial effusion was seen in the earlier CAT scan of the chest that was done on 03/25/2022. Based on the CAT scan findings from the same date, the patient a large pericardial effusion along with scattered enlarged mediastinal lymphadenopathy largest in the AP window and in the right paratracheal area and those were present back in June 2021 and the remaining essentially unchanged. There was also subcarinal lymphadenopathy measuring 2.4 cm in size slightly increased in size and there was interval development of small bilateral pleural effusions and some increased interstitial changes in lung bases bilaterally. The patient has already had previous evaluations and [facility] in this regard. Previous PET scan was also done and [facility].the PET scan that was done in January 2022 The patient is seen today 04/17/2022 of follow-up on the selective care unit. Sitting up in bed. Awake and alert in no acute distress. Maintaining good O2 saturations in the mid to upper 90s on room air. Afebrile. Hemodynamically stable. Yesterday he had undergone a subxiphoid pericardial window for a significant pericardial effusion. 450 mL of serous inflammatory fluid was evacuated from the pericardium. A 19-Lao Erick tube remained in place. An additional 30 ML's returned today. Fluid cultures and pathology pending. Chest x-ray reveals a mild right costophrenic angle subsegmental atelectasis. Small left pleural effusion. White count 7.6. Hemoglobin 11.8. Sodium 133. Potassium 4.8. Bicarb 24. BUN 29. Creatinine 0.96. Glucose 146. He is continuing on cefazolin. Colchicine. Lovenox for DVT prophylaxis. The patient is seen today 04/18/2022 in follow-up on the selective care unit. He is resting comfortably in bed. Awake and alert in no acute distress. Maintaining good O2 saturations in the 90s on room air. Afebrile. Hemodynamically stable. Chest x-ray reveals similar bibasilar atelectasis with suspected small bilateral pleural effusions. No evidence of focal consolidation or pneumothorax. Additional 40 ML's of fluid in the BRIGHT drain. Pericardial fluid and biopsy cytology pending. Cultures pending. Cultures are revealing no growth. No new labs today. He remains on colchicine and Naprosyn. Lovenox for DVT prophylaxis. Objective - Vital Signs Vital signs: Vital Signs Temp 98.1 F 04/18/22 08:00 Pulse 85 04/18/22 08:00 Resp 17 04/18/22 08:00 BP 121/72 04/18/22 08:00 Pulse Ox 96 04/18/22 08:15 FiO2 Intake & Output 04/17/22 04/18/22 04/18/22 18:59 06:59 18:59 Intake Total 218 480 540 Output Total 200 750 440 Balance 18 -270 100 Intake: Oral 218 480 540 Output: Chest Tube Drainage 40 Chest Tube 40 Urine 200 750 400 Other: Voiding Method Toilet Toilet Toilet # Voids 1 1 - Exam GENERAL EXAM: Alert, pleasant 66-year-old male patient, on room air, comfortable in no apparent distress. HEAD: Normocephalic. EYES: Normal reaction of pupils, equal size. NOSE: Clear with pink turbinates. THROAT: No erythema or exudates. NECK: No masses, no JVD. CHEST: No chest wall deformity. Mediastinal BRIGHT drain remains in place LUNGS: Equal air entry with no crackles, wheeze, rhonchi or dullness. CVS: S1 and S2 normal with no audible murmur, regular rhythm. ABDOMEN: No hepatosplenomegaly, normal bowel sounds, no guarding or rigidity. SPINE: No scoliosis or deformity SKIN: No rashes CENTRAL NERVOUS SYSTEM: No focal deficits, tone is normal in all 4 extremities. EXTREMITIES: There is no peripheral edema. No clubbing, no cyanosis. Peripheral pulses are intact. - Labs CBC & Chem 7: 04/17/22 06:47 04/17/22 06:47 Labs: Microbiology - Last 24 Hours (Table) 04/16/22 15:21 Gram Stain - Preliminary Pericardial Fluid Body Fluid Culture - Preliminary 04/16/22 18:16 Blood Culture - Preliminary Blood No Growth after 24 hours 04/16/22 15:21 Gram Stain - Preliminary Other - Other Wound Culture - Preliminary 04/16/22 15:21 Anaerobic Culture - Preliminary Pericardial Fluid 04/16/22 15:21 Fungal Culture - Preliminary Pericardial Fluid 04/16/22 15:21 Acid Fast Bacilli Culture - Preliminary Pericardial Fluid Assessment and Plan Assessment: Dyspnea, secondary to a large pericardial effusion with a recent history of pericarditis. No physiologic evidence of tamponade. Status post subxiphoid pericardial window with 450 mL of serous inflammatory fluid evacuated. Postoperative day #2. BRIGHT drain remains in place. Tissue biopsy and fluid cytology pending. Cultures pending. Bilateral small pleural effusions, stable and on room air Mediastinal lymphadenopathy involving the paratracheal subcarinal and AP window area. Based on the previous PET/CT, there was some metabolic activity within the mediastinum Coronary artery disease, please refer to the cardiac catheterization report from 2021 Chronic interstitial change in lung bases bilaterally, rule out underlying ILD, being evaluated [facility]. History of Lyme disease, treated History of toxoplasma infection, treated History of ITP, post splenectomy, platelet counts are normal History of ulcerative colitis and the patient has had previous bowel surgery and the patient has ileostomy Positive AMMY and rheumatoid factor Previous history of Covid 19 infection 2, no vaccination Plan: The patient was seen and evaluated Chest x-ray and medications reviewed Currently stable and on room air Mediastinal BRIGHT drain remains in place Pericardial fluid cultures and pathology pending Remains on Naprosyn, colchicine Increase his activity as tolerated We will continue to follow I have personally seen and examined the patient, performed the documentation and the assessment and plan as written. Number of minutes spent on the visit: 10.
--- NOTE | 2022-04-18 12:26 | P.PN ---
Subjective Progress Note Date: 04/18/22 Principal diagnosis: Chronic pericardial effusion. Past medical history significant for pericarditis, treated with colchicine and steroids, hyperlipidemia, ITP status post splenectomy, ulcerative colitis status post ileostomy, Lyme disease, chart states rheumatoid arthritis however patient denies history of rheumatoid arthritis, right lung mass worked up at [facility]. He presented to [facility] in February 2022 with chest pain, he was diagnosed with a S CHRISTOPHE and taken to the [facility] which demonstrated a diagonal branch with 70-80% stenosis, dominant right coronary artery with area of plaque rupture in the proximal portion with 30-40% stenosis, and no other significant coronary artery disease. POD #2 Sub-xiphoid pericardial window. The patient was seen in follow-up today 04/18/2022 at his bedside on the cardiac stepdown unit. The patient is currently sitting up in bed, eating his breakfast, is alert, oriented 3 and is in no acute apparent distress. He denies any complaints of pain or shortness of breath at this time. Remained hemodynamically stable and is currently on no inotropic or pressor support. Remote telemetry showing normal sinus rhythm heart rate 69 BPM. Oxygen saturation are 96% on room air and he is achieving 1250 mL on his incentive spirometry. Subxiphoid chest tube remains in place to low continuous wall suction -20 cm H2O. No air leak is present. Draining thin serosanguineous drainage with 40 mL output in the last 24 hours. He reports he has been up ambulating in his room without difficulty. He has been afebrile in the last 24 hours. Pericardial fluid and biopsy results remain pending. Objective - Vital Signs Vital signs: Vital Signs Temp 98.1 F 04/18/22 08:00 Pulse 85 04/18/22 08:00 Resp 17 04/18/22 08:00 BP 121/72 04/18/22 08:00 Pulse Ox 96 04/18/22 08:15 FiO2 Intake & Output 04/17/22 04/18/22 04/18/22 18:59 06:59 18:59 Intake Total 218 480 540 Output Total 200 750 440 Balance 18 -270 100 Intake: Oral 218 480 540 Output: Chest Tube Drainage 40 Chest Tube 40 Urine 200 750 400 Other: Voiding Method Toilet Toilet Toilet # Voids 1 1 - Exam CONSTITUTIONAL: Sitting up in bed on the cardiac stepdown unit, appears comfortable, cooperative, no apparent acute distress. HEENT: Neck is supple, no JVD, no lymphadenopathy. RESPIRATORY: Lungs sounds essentially clear throughout, diminished to his bilateral bases. Respirations are symmetrical and nonlabored. Currently on room air with oxygen saturations 96%. Able to achieve 1000 mL on their incentive spirometry. Strong cough. CARDIOVASCULAR: Regular rhythm and rate. S1 and S2 present, negative for S3, gallop or murmur. No calf pain or tenderness noted. GASTROINTESTINAL: Abdomen soft, nontender, nondistended. Active bowel sounds present 4 quadrants. Tolerating diet. No guarding or rigidity. Ileostomy right lower quadrant abdomen. GENITOURINARY: Continues to void INTEGUMENTARY: Skin is warm and dry with no evidence of clubbing or cyanosis. Subxiphoid incision clean dry and well approximated, covered with dry intact dressing. NEUROLOGIC: Cranial nerves II through XII intact. No focal deficits. MUSKULOSKELETAL: Able to move all extremities, strength equal bilaterally, generalized weakness. PSYCHIATRIC: Alert and oriented to person place and time, appropriate affect, intact judgment and insight. INVASIVE LINES AND TUBES: Subxiphoid chest tube present and connected to low continuous wall suction, no air leaks present. Subxiphoid tube with 40 mL of thin serosanguineous drainage in the last 24 hours. - Allied health notes Allied health notes reviewed: nursing - Labs CBC & Chem 7: 04/17/22 06:47 04/17/22 06:47 Labs: Microbiology - Last 24 Hours (Table) 04/16/22 15:21 Gram Stain - Preliminary Pericardial Fluid Body Fluid Culture - Preliminary 04/16/22 18:16 Blood Culture - Preliminary Blood No Growth after 24 hours 04/16/22 15:21 Gram Stain - Preliminary Other - Other Wound Culture - Preliminary 04/16/22 15:21 Anaerobic Culture - Preliminary Pericardial Fluid 04/16/22 15:21 Fungal Culture - Preliminary Pericardial Fluid 04/16/22 15:21 Acid Fast Bacilli Culture - Preliminary Pericardial Fluid - Imaging and Cardiology Chest x-ray: report reviewed, image reviewed Assessment and Plan Assessment: 1. Chronic pericardial effusion without tamponade physiology, status post subxiphoid pericardial window 2. Small bilateral pleural effusions 3. Shortness of breath with exertion, chest fullness, likely secondary to above 4. Recent STEMI, cardiac catheterization revealed diagonal branch with 70-80% stenosis, dominant right coronary artery with area of plaque rupture in the proximal portion with 30-40% stenosis, and no other significant coronary artery disease 5. History of hyperlipidemia 6. ITP status post splenectomy 7. Ulcerative colitis status post ileostomy 8. Lyme disease 9. Questionable rheumatoid arthritis, patient denies history 10. Right lung mass along with scattered enlarged mediastinal lymphadenopathy as well as subcarinal lymphadenopathy worked up at [facility] Plan: 1. Subxiphoid chest tube removed this a.m. without incident. 2. May be discharged home per the cardiothoracic surgery standpoint when okay by primary care service and other consultants. 3. Continue to follow pericardial fluid cytology and culture results. 4. Increase activity as tolerated. Out of bed for all meals. Ambulate as tolerated. 5. Encourage use of his incentive spirometry 10 times every hour while he is awake. 6. Medical management of her comorbidities per primary care service. 7. We will continue to follow the patient on an as-needed basis. Please call for any further questions. Time with Patient: Greater than 30
[2022-04-18 12:36] VITALS: BP 107/65; PULSE 55; RESP 16
--- NOTE | 2022-04-18 13:51 | P.PN ---
Subjective Progress Note Date: 04/18/22 PROGRESS NOTE The patient is a 66 male who was admitted through the emergency room for evaluation of treatment of persistent pericardial effusion. He is followed on a regular basis by Dr. Gr. He presented to the hospital on March 17 with symptoms of chest discomfort that started 2 days prior to admission and had ST elevation predominantly in the inferior leads but diffused. He underwent cardiac catheterization that showed no significant disease. Subsequently his echocardiogram showed evidence of pericardial effusion and he was diagnosed with pericarditis. He was started on colchicine and repeat echocardiogram performed in the office has shown a moderate to severe pericardial effusion with no tamponade. The patient continues to have episodes of chest discomfort as well as dyspnea on exertion. He has no syncope but feels dizzy at times. He has no clear PND or orthopnea. His appetite has been poor and he has lost weight. He has received a course of steroids as an outpatient in addition to his colchicine. His echocardiogram on presentation showed a normal systolic function with mild aortic and tricuspid regurgitation with a moderate to large pericardial effusion. The patient has a prior history of Lyme disease that has been stable and was diagnosed with toxoplasmosis, treated with Bactrim and had a negative testing. His initial diagnosis was in July of last year. He had an abnormal chest x-ray and computed tomography scan of the chest, subsequently underwent a PET scan and was followed at [facility] and according to him repeat CAT scan showed improvement and there was no evidence to suggest malignancy. He has a prior history of ulcerative colitis, post coronary dissection and subsequent splenectomy because of ITP. A computed tomography scan of the chest performed on March 25 showed scattered nonenlarged mediastinal lymph nodes subcarinal adenopathy, the pericardial effusion was noted as well. The patient is a nonsmoker, nondiabetic. April 16: The patient continues to feel dyspneic and fatigue but denies any palpitations or dizziness. His echocardiogram showed moderate to large pericardial effusion but no hemodynamic compromise. He is scheduled to undergo pericardial window today. He was evaluated by the pulmonary service and we are awaiting the prior workup from [facility]. April 18: The patient is feeling better. His pericardial tube has been removed. His breathing is better. He has incisional chest discomfort but he feels that his breathing is better. He denies any dizziness or palpitations. He denies any nausea. Medications: Colchicine 0.6 mg twice a day, Lopressor 25 mg twice a day PHYSICAL EXAMINATION: Blood pressure 120/70 heart rate 80 LUNGS: Clear to auscultation HEART: Regular rate and rhythm, S1, S2. No S3. systolic ejection murmur ABDOMEN: Soft, nontender, no organomegaly EXTREMETIES: No edema LAB: Pending IMPRESSION: 1. Moderate to large pericardial effusion, persistent, etiology clear, status post pericardial window, awaiting fluid and tissue analysis 2. Weight loss 3. Abnormal computed tomography scan of the chest 4. History of toxoplasmosis 5. Status post splenectomy 6. History of ulcerative colitis and history of colon resection PLAN: 1. Continue present therapy 2. Probable discharge home today and follow-up as an outpatient with Dr. Gr 3. Follow-up on the results of his fluid and tissue analysis Objective - Vital Signs Vital signs: Vital Signs Temp 98.1 F 04/18/22 08:00 Pulse 55 L 04/18/22 12:00 Resp 16 04/18/22 12:00 BP 107/65 04/18/22 12:00 Pulse Ox 98 04/18/22 12:00 FiO2 Intake & Output 04/17/22 04/18/22 04/18/22 18:59 06:59 18:59 Intake Total 218 480 540 Output Total 200 750 440 Balance 18 -270 100 Intake: Oral 218 480 540 Output: Chest Tube Drainage 40 Chest Tube 40 Urine 200 750 400 Other: Voiding Method Toilet Toilet Toilet # Voids 1 1 - Labs CBC & Chem 7: 04/17/22 06:47 04/17/22 06:47 Labs: Microbiology - Last 24 Hours (Table) 04/16/22 15:21 Gram Stain - Preliminary Pericardial Fluid Body Fluid Culture - Preliminary 04/16/22 18:16 Blood Culture - Preliminary Blood No Growth after 24 hours 04/16/22 15:21 Gram Stain - Preliminary Other - Other Wound Culture - Preliminary 04/16/22 15:21 Anaerobic Culture - Preliminary Pericardial Fluid 04/16/22 15:21 Fungal Culture - Preliminary Pericardial Fluid 04/16/22 15:21 Acid Fast Bacilli Culture - Preliminary Pericardial Fluid
--- NOTE | 2022-04-18 15:46 | DS ---
DISCHARGE SUMMARY FINAL DIAGNOSES: 1. Moderate pericardial effusion, status post pericardial window. 2. Chronic lung changes in the CAT scan. 3. Gastroesophageal reflux disease. 4. Raynaud's disease. 5. Multiple medical issues. DISCHARGE DISPOSITION: The patient will be discharged in stable condition and guarded prognosis. HISTORY OF PRESENT ILLNESS: This is a 66-year-old gentleman with a past medical history of multiple medical problems, admitted with pericardial effusion. The patient had a pericardial window by Cardiothoracic Surgery. Drainage was removed, and Cardiothoracic Surgery recommended the patient be discharged, and final cytology reports are pending at this time. The patient will be discharged in stable condition and guarded prognosis with the following advices and medications. PHYSICAL EXAMINATION: VITAL SIGNS: Stable. CARDIOVASCULAR: S1 and S2. ABDOMEN: Soft. NERVOUS SYSTEM: No focal deficits. DISCHARGE MEDICATIONS: Continue the home medications including colchicine. FOLLOWUP: Follow up with Dr. Markie Oscar in 1 to 2 days. Follow up with Cardiothoracic Surgery and follow up with Cardiology as recommended. MMODL / IJN: [id number] /
--- NOTE | 2022-04-18 17:08 | P.PN ---
Subjective Progress Note Date: 04/18/22 Principal diagnosis: Pericardial effusion Patient is a 66-year-old male with a past medical history significant for hyperlipidemia he is status post splenectomy ulcerative colitis status post ileostomy, Lyme disease, he was recently admitted at [facility] and diagnosed with pericardial effusion that did not respond to the colchicine and subsequently readmitted with persistent pericardial effusion in this patient who is status post pericardial window drainage of the pericardial fluid cultures completed on 04/16/2022 On today's evaluation that is 04/18/2022 patient remains to be afebrile, patient is breathing comfortably on room air, the patient chest pain is controlled with current pain medication, the patient denies nausea no vomiting and no diarrhea Objective - Vital Signs Vital signs: Vital Signs Temp 98.1 F 04/18/22 08:00 Pulse 85 04/18/22 08:00 Resp 17 04/18/22 08:00 BP 121/72 04/18/22 08:00 Pulse Ox 96 04/18/22 08:15 FiO2 Intake & Output 04/17/22 04/18/22 04/18/22 18:59 06:59 18:59 Intake Total 218 480 540 Output Total 200 750 440 Balance 18 -270 100 Intake: Oral 218 480 540 Output: Chest Tube Drainage 40 Chest Tube 40 Urine 200 750 400 Other: Voiding Method Toilet Toilet Toilet # Voids 1 1 - Exam GENERAL DESCRIPTION: An elderly male lying in bed in no distress RESPIRATORY SYSTEM: Unlabored breathing , decreased breath sounds at bases HEART: S1 S2 regular rate and rhythm , ABDOMEN: Soft , no tenderness EXTREMITIES: No edema feet - Labs CBC & Chem 7: 04/17/22 06:47 04/17/22 06:47 Labs: Microbiology - Last 24 Hours (Table) 04/16/22 15:21 Gram Stain - Preliminary Pericardial Fluid Body Fluid Culture - Preliminary 04/16/22 18:16 Blood Culture - Preliminary Blood No Growth after 24 hours 04/16/22 15:21 Gram Stain - Preliminary Other - Other Wound Culture - Preliminary 04/16/22 15:21 Anaerobic Culture - Preliminary Pericardial Fluid 04/16/22 15:21 Fungal Culture - Preliminary Pericardial Fluid 04/16/22 15:21 Acid Fast Bacilli Culture - Preliminary Pericardial Fluid Assessment and Plan (1) Pericardial effusion Status: Acute Code(s): I31.39 - OTHER PERICARDIAL EFFUSION (NONINFLAMMATORY) SNOMED Code(s): 571966631 Plan: 1patient with persistent pericardial effusion and not responding to the anti- inflammatory medication with the colchicine and this patient with no fever does not look toxic no elevated white count clinical suspicion is low for bacterial etiology and the patient is low risk factor for fungal etiology 2Patient is status post pericardial window biopsy and cultures which are not finalized. 3Patient is afebrile and white count has been normal, patient will be monitored closely off antibiotic therapy while waiting for the biopsy and cultures to be finalize Time with Patient: Less than 30
== END 2022-04-18 13:40 | disposition home or self-care (01) | DRG 270 ==
LOC: EC 10:13 → 3SCARD 10:55
PROVIDERS: ADMIT Hospitalist; ATTEND Hospitalist
PROC: 02BN0ZX Excision of Pericardium, Open Approach, Diagnostic (ICD-10-PCS; principal; 2022-04-16 14:00)
PROC: B246ZZ4 Ultrasonography of Right and Left Heart, Transesophageal (ICD-10-PCS; principal; 2022-04-16 14:00)
PROC: 0W9D0ZZ Drainage of Pericardial Cavity, Open Approach (ICD-10-PCS; principal; 2022-04-16 14:00)
DX: I31.39 Other pericardial effusion (noninflammatory) (principal); I21.3 ST elevation (STEMI) myocardial infarction of unspecified site; J90 Pleural effusion, not elsewhere classified; J98.11 Atelectasis; K51.90 Ulcerative colitis, unspecified, without complications; H91.90 Unspecified hearing loss, unspecified ear; I08.2 Rheumatic disorders of both aortic and tricuspid valves; K21.9 Gastro-esophageal reflux disease without esophagitis; Z86.19 Personal history of other infectious and parasitic diseases; Z86.16 Personal history of COVID-19; Z28.310 Unvaccinated for COVID-19; Z28.21 Immunization not carried out because of patient refusal; E78.5 Hyperlipidemia, unspecified; F41.9 Anxiety disorder, unspecified; J44.9 Chronic obstructive pulmonary disease, unspecified; M06.9 Rheumatoid arthritis, unspecified; G47.00 Insomnia, unspecified; R91.1 Solitary pulmonary nodule; K59.00 Constipation, unspecified; I25.10 Atherosclerotic heart disease of native coronary artery without angina pectoris; I73.00 Raynaud's syndrome without gangrene; Z87.01 Personal history of pneumonia (recurrent); Z90.49 Acquired absence of other specified parts of digestive tract; Z93.2 Ileostomy status; R76.8 Other specified abnormal immunological findings in serum; Z90.81 Acquired absence of spleen; R63.4 Abnormal weight loss; Z68.21 Body mass index [BMI] 21.0-21.9, adult; Z79.899 Other long term (current) drug therapy; Z86.2 Personal history of diseases of the blood and blood-forming organs and certain disorders involving the immune mechanism
CPT/HCPCS: 36415; 71045; 71046; 80048; 80053; 83735; 84484; 85025; 85027; 85610; 85652; 85730; 86140; 86850; 86870; 86880; 86900; 86901; 87040; 87070; 87075; 87102; 87116; 87205; 87206; 88108; 88305; 89050; 93005; 93306; 94760; 99285

== ENCOUNTER → 2023-07-21 | Outpatient (CLI) | payer BC, MEDICARE | END | disposition home or self-care (01) | LOC: LABWHC1 10:59 | PROVIDERS: ATTEND Otolaryngology | DX: Z53.9 Procedure and treatment not carried out, unspecified reason (principal) ==